=== PATIENT | female | born 1970 | race Caucasian/White ===

== ENCOUNTER 2024-04-13 09:54 | Outpatient (OUT) | payer BC, SELFPAY ==
--- NOTE | 2024-04-13 09:56 | US_ITS ---
The [address] [address] Patient Name: JUDAH BERTRAND MRN: [id number] date: 1970 Sex: F Assigned Patient Location: [facility] Current Patient Location: [facility] Accession/Order Number: [id number] Exam Date: 04/13/2024 09:56 Report Date: 04/13/2024 13:11 At the request of: SELMA GARCIA Procedure: US pelvis w/ transvaginal EXAMINATION: US pelvis w/ transvaginal HISTORY: POST MENOPAUSAL BLEEDING ; left pelvic pressure COMPARISON: No relevant comparison available. TECHNIQUE: Transabdominal and/or transvaginal sonographic examination was performed as indicated by examination type. FINDINGS: UTERUS: Contains 2 myometrial masses, 3.4 cm and 3.0 cm respectively suspected represent leiomyomas. Uterus size: 10.5 x 5.5 x 7.6 cm ENDOMETRIUM: Normal homogeneous appearance. Endometrial thickness: 15 mm RIGHT OVARY: Cannot be identified. LEFT OVARY: Ovary could not be identified, but within left adnexa adjacent the uterus is a 4.4 x 4.3 x 3.6 cm heterogeneous structure. CUL-DE-SAC: Unremarkable. No significant free fluid. BLADDER: Unremarkable. OTHER: None. US/US pelvis w/ transvaginal IMPRESSION: 1. Slightly prominent uterus containing 2 myometrial masses favoring leiomyomas. 2. Abnormally thickened endometrium without appreciable mass. Endometrial hyperplasia? 3. Within left adnexa adjacent the uterus is a 4.4 cm heterogeneous structure of uncertain etiology. No appreciable peristalsis as would be expected with bowel. This may represent an ovarian mass or pedunculated uterine leiomyoma. Consider CT abdomen and pelvis with IV and oral contrast for further evaluation. Electronically authenticated by: ROSALINO SALAZAR Date: 04/13/2024 13:11
== END 2024-04-13 09:55 | disposition home or self-care (01) ==
LOC: NOMS 09:54
PROVIDERS: Visit Provider Obstetrics & Gynecology
DX: N95.0 Postmenopausal bleeding (principal); D25.9 Leiomyoma of uterus, unspecified
CPT/HCPCS: 76830; 76856

== ENCOUNTER 2024-04-16 10:35 | Outpatient (OUT) | payer BC, SELFPAY ==
[2024-04-16 12:32] LABS: Lactate Dehydrogenase 161 U/L (81-234)
[2024-04-17 04:08] LABS: AFP, Serum, Tumor Marker 2.1 ng/mL (0.0-9.2); CEA 1.2 ng/mL (0.0-4.7); Cancer Antigen (CA) 125 13.6 U/mL (0.0-38.1); HCG Tumor Marker <1 mIU/mL (.)
== END 2024-04-16 10:36 | disposition home or self-care (01) ==
LOC: LAB 10:38
PROVIDERS: Visit Provider Obstetrics & Gynecology
DX: N83.299 Other ovarian cyst, unspecified side (principal)
CPT/HCPCS: 36415; 82105; 82378; 83615; 84702; 86304

== ENCOUNTER 2024-04-21 19:05 | Outpatient (REF) | payer BC, SELFPAY ==
--- OUTSIDE RECORDS SUMMARY | 2024-04-21 19:10 | XMS_ITS | CCD ---
Author Organization [facility] Care Team Providers Care Finisher Fine Diamond Dies Name Role Phone SELMA GARCIA Admitting Unavailable SELMA GARCIA Attending Unavailable SELMA GARCIA Consulting Unavailable AUGUSTIN Benedict-BAO Mathis Primary Care Provider Community, Outreach Attending Provider [phone] Community, Outreach Admitting Unavailable Community, Outreach Attending Unavailable Xochilt Benedict Primary Care Unavailable Charanjit Wong MD Primary Care Provider CHARANJIT WONG Attending Unavailable CHARANJIT WONG Referring Unavailable CHARANJIT WONG Primary Care Unavailable SELMA GARCIA Attending Unavailable SELMA GARCIA Attending Unavailable Medications Current Medications Medication Drug Class(es) Dates Sig (Normalized) Sig (Original) atorvastatin 10 mg oral tablet (5 sources) HMG-CoA Reductase Inhibitor Start: 12-13-2023 End: 01-16-2024 take 1 tablet by mouth in the morning atorvastatin (LIPITOR) 10 mg tablet Indications: Mixed hyperlipidemia Take 1 tablet (10 mg total) by mouth in the morning. 90 tablet 1 01/16/2024 Active Start: 12-09-2023 End: 12-11-2023 take 1 tablet by mouth in the morning atorvastatin (LIPITOR) 10 mg tablet Indications: Mixed hyperlipidemia Take 1 tablet (10 mg total) by mouth in the morning. 90 tablet 1 12/09/2023 12/11/2023 Discontinued (Reorder) benazepril hydrochloride 20 mg oral tablet (5 sources) Angiotensin Converting Enzyme Inhibitor Start: 05-23-2023 End: 01-16-2024 take 1 tablet by mouth once daily benazepriL (LOTENSIN) 20 mg tablet Indications: Essential hypertension Take 1 tablet (20 mg total) by mouth nightly. 90 tablet 1 01/16/2024 Active Start: 01-07-2020 take 1 tablet by jenna th once daily Benazepril Active 1 TAB PO Daily January 07, 2020 1:00am 24 hr buPROPion hydrochloride 300 mg extended release oral tablet (5 sources) Aminoketone Start: 05-23-2023 End: 01-16-2024 take 1 tablet by mouth every twenty-four hours in the morning buPROPion XL (WELLBUTRIN XL) 300 mg 24 hr tablet Indications: Depression, unspecified depression type Take 1 tablet (300 mg total) by mouth in the morning. 90 tablet 1 01/16/2024 Active Start: 01-07-2020 take 1 tablet by jenna th once daily Bupropion Hcl Active 1 TAB PO Daily January 07, 2020 1:00am escitalopram 20 mg oral tablet (5 sources) Serotonin Reuptake Inhibitor Start: 05-23-2023 End: 01-16-2024 take 1 tablet by mouth once daily escitalopram (LEXAPRO) 20 mg tablet Indications: Depression, unspecified depression type Take 1 tablet (20 mg total) by mouth nightly. 90 tablet 1 01/16/2024 Active Start: 01-07-2020 take 1 tablet by jenna th once daily Escitalopram Oxalate Active 1 TAB PO Daily January 07, 2020 1:00am furosemide 20 mg oral tablet (5 sources) Loop Diuretic Start: 05-23-2023 End: 01-16-2024 take 1 tablet by mouth once daily furosemide (LASIX) 20 mg tablet Indications: Essential hypertension Take 1 tablet (20 mg total) by mouth daily. 90 tablet 1 01/16/2024 Active Start: 01-07-2020 take 1 tablet by jenna th once daily Furosemide Active 1 TAB PO Daily January 07, 2020 1:00am metFORMIN hydrochloride 1000 mg oral tablet (5 sources) Biguanide Start: 05-23-2023 End: 01-16-2024 metFORMIN (GLUCOPHAGE) 1000 mg tablet Indications: Type 2 diabetes mellitus with hyperosmolarity without coma, without long-term current use of insulin ([facility]) , Type 2 diabetes mellitus without complication, without long-term current use of insulin ([facility]) TAKE 1 TABLET TWICE A DAY WITH MEALS 180 tablet 1 01/16/2024 Active Start: 01-07-2020 take 1 tablet by jenna th twice daily Metformin Active 1 TAB PO Twice daily January 07, 2020 1:00am Completed/Discontinued Medications Medication Drug Class(es) Dates Sig (Normalized) Sig (Original) folic acid 1 mg / polysaccharide iron complex 150 mg / vitamin b12 0.025 mg oral capsule (1 source) Vitamin B12 Start: 01-07-2020 End: 01-08-2020 take 1 tablet by mouth once daily Iron Ps [id number] Acid Discontinued 1 TAB PO Daily January 07, 2020 1:00am January 08, 2020 9:47am Problems Active Problems Problem Classification Problem Date Documented Date Episodic/Chronic Deficiency and other anemia (3 sources) Iron deficiency anemia due to blood loss; Translations: [Iron deficiency anemia secondary to blood loss (chronic)] Onset: 11-27-2019 04-07-2020 Chronic Diabetes mellitus with complications (4 sources) Type 2 diabetes mellitus; Translations: [Type 2 diabetes mellitus with hyperosmolarity without nonketotic hyperglycemic-hyperos molar coma ([facility])] Onset: 04-07-2020 04-07-2020 Chronic Diabetes mellitus without complication (1 source) Type 2 diabetes mellitus without complication; Translations: [Type 2 diabetes mellitus without complications] 01-16-2024 Chronic Disorders of lipid metabolism (2 sources) Mixed hyperlipidemia; Translations: [Mixed hyperlipidemia] 12-11-2023 Chronic Essential hypertension (1 source) Essential hypertension; Translations: [Essential (primary) hypertension] 01-16-2024 Chronic Immunizations and screening for infectious disease (1 source) Encounter for screening for human papillomavirus (HPV); Translations: [ENC SCREENING HUMAN PAPILLOMAVIRUS] Onset: 04-07-2020 Episodic Mood disorders (1 source) Depressive disorder; Translations: [Depression, unspecified depression type] 01-16-2024 Chronic Osteoarthritis (6 sources) Primary coxarthrosis, bilateral; Translations: [Bilateral primary osteoarthritis of hip] Onset: 03-23-2020 03-23-2020 Chronic Other connective tissue disease (3 sources) History of repair of hip joint; Translations: [Presence of left artificial hip joint] Onset: 11-08-2020 11-08-2020 Chronic Other connective tissue disease (3 sources) Hip joint prosthesis present; Translations: [Presence of left artificial hip joint] Onset: 10-24-2020 11-30-2022 Chronic Other screening for suspected conditions (not mental disorders or infectious disease) (4 sources) Encounter for screening for malignant neoplasm of cervix; Translations: [ENC SCREENING MALIG NEOPLASM CERV] Onset: 04-06-2020 Episodic Residual codes; unclassified (1 source) Edema, generalized; Translations: [Generalized edema] 01-15-2024 Episodic Past or Other Problems Problem Classification Problem Date Documented Da te Episodic/Chronic Mood disorders (3 sources) Mood disorders Onset: 11-27-2022 11-27-2022 Results Test Name Value Interpretation Reference Range Facility Alanine aminotransferase [En zymatic activity/volume] in Serum or PlasmaOrdered By: OUTREACH COMMUNITY on 03-02-2023 ALT [Catalytic activity/Vol] 28 U/L 7-52 [facility] Albumin [Mass/volume] in Ser um or Plasma by Bromocresol green (BCG) dye binding methoOrdered By: OUTREACH COMMUNITY on 03-02-2023 Albumin BCG dye [Mass/Vol] 4.5 g/dL 3.5-5.7 [facility] Alkaline phosphatase [Enzyma tic activity/volume] in Serum or PlasmaOrdered By: OUTREACH COMMUNITY on 03-02-2023 ALP [Catalytic activity/Vol] 76 U/L 34-104 [facility] Aspartate aminotransferase [ Enzymatic activity/volume] in Serum or PlasmaOrdered By: OUTREACH COMMUNITY on 03-02-2023 AST [Catalytic activity/Vol] 17 U/L 13-39 [facility] Bilirubin.total [Mass/volume ] in Serum or PlasmaOrdered By: OUTREACH COMMUNITY on 03-02-2023 Bilirubin [Mass/Vol] 0.8 mg/dL 0.3-1.0 [facility] CBC Without Differentialon 0 03-02-2023 Erythrocyte distribution width (RBC) [Ratio] 13.0 % Normal 11.9-15.3 [facility] Comment on above: Performed By: #### C BCNOOUTREACH, OUTREACH GLYCO, OUTREACH CMP, OUTREACH LIPID, OUTREACH TSH, OUTREACH VITD #### [facility] [address] Hematocrit (Bld) [Volume fraction] 42.7 % Normal 34.0-46.4 [facility] Comment on above: Performed By: #### C BCNOOUTREACH, OUTREACH GLYCO, OUTREACH CMP, OUTREACH LIPID, OUTREACH TSH, OUTREACH VITD #### [facility] [address] [place] [address] [place] Hemoglobin (Bld) [Mass/Vol] 14.7 g/dL Normal 11.8-15.4 [facility] Comment on above: Performed By: #### C BCNOOUTREACH, OUTREACH GLYCO, OUTREACH CMP, OUTREACH LIPID, OUTREACH TSH, OUTREACH VITD #### [facility] [address] MCH (RBC) [Entitic mass] 28.9 pg Normal 24.7-34.3 [facility] Comment on above: Performed By: #### C BCNOOUTREACH, OUTREACH GLYCO, OUTREACH CMP, OUTREACH LIPID, OUTREACH TSH, OUTREACH VITD #### [facility] [address] [place] [address] MCV (RBC) [Entitic vol] 84.2 fL Normal 80-100 [facility] Comment on above: Performed By: #### C BCNOOUTREACH, OUTREACH GLYCO, OUTREACH CMP, OUTREACH LIPID, OUTREACH TSH, OUTREACH VITD #### [facility] [address] [place] [address] Mean Corpuscular HGB Conc 34.3 g/dL Normal 32.0-35.0 [facility] Comment on above: Performed By: #### C BCNOOUTREACH, OUTREACH GLYCO, OUTREACH CMP, OUTREACH LIPID, OUTREACH TSH, OUTREACH VITD #### [facility] [address] [place] [address] Platelet mean volume (Bld) [Entitic vol] 7.1 fL Normal 6.3-10.7 [facility] Comment on above: Result Comment: PERF ORMED BY: [place] [address] PATHOLOGIST DIRECTOR METABOLISM MARY ALICE MUNOZ M.D. Performed By: #### C BCNOOUTREACH, OUTREACH GLYCO, OUTREACH CMP, OUTREACH LIPID, OUTREACH TSH, OUTREACH VITD #### [facility] [address] [place] [address] [place] Platelets (Bld) [#/Vol] 375 10*3/uL Normal 150-450 [facility] Comment on above: Performed By: #### C BCNOOUTREACH, OUTREACH GLYCO, OUTREACH CMP, OUTREACH LIPID, OUTREACH TSH, OUTREACH VITD #### [facility] [address] [place] [address] RBC (Bld) [#/Vol] 5.07 10*6/uL High 3.60-5.00 [facility] Comment on above: Performed By: #### C BCNOOUTREACH, OUTREACH GLYCO, OUTREACH CMP, OUTREACH LIPID, OUTREACH TSH, OUTREACH VITD #### [facility] [address] [place] [address] WBC (Bld) [#/Vol] 5.8 10*3/uL Normal 3.8-11.6 [facility] Comment on above: Performed By: #### C BCNOOUTREACH, OUTREACH GLYCO, OUTREACH CMP, OUTREACH LIPID, OUTREACH TSH, OUTREACH VITD #### [facility] [address] [place] [address] CMP Outreachon 03-02-2023 Albumin [Mass/Vol] 4.5 g/dL Normal 3.5-5.7 [facility] Comment on above: Performed By: #### C BCNOOUTREACH, OUTREACH GLYCO, OUTREACH CMP, OUTREACH LIPID, OUTREACH TSH, OUTREACH VITD #### [facility] [address] [place] [address] ALP [Catalytic activity/Vol] 76 U/L Normal 34-104 [facility] Comment on above: Performed By: #### C BCNOOUTREACH, OUTREACH GLYCO, OUTREACH CMP, OUTREACH LIPID, OUTREACH TSH, OUTREACH VITD #### [facility] [address] [place] [address] ALT [Catalytic activity/Vol] 28 U/L Normal 7-52 [facility] Comment on above: Performed By: #### C BCNOOUTREACH, OUTREACH GLYCO, OUTREACH CMP, OUTREACH LIPID, OUTREACH TSH, OUTREACH VITD #### [facility] [address] [place] [address] Anion gap [Moles/Vol] 12.5 mmol/L Normal 6.0-15.0 [facility] Comment on above: Performed By: #### C BCNOOUTREACH, OUTREACH GLYCO, OUTREACH CMP, OUTREACH LIPID, OUTREACH TSH, OUTREACH VITD #### [facility] [address] [place] [address] [place] AST [Catalytic activity/Vol] 17 U/L Normal 13-39 [facility] Comment on above: Performed By: #### C BCNOOUTREACH, OUTREACH GLYCO, OUTREACH CMP, OUTREACH LIPID, OUTREACH TSH, OUTREACH VITD #### [facility] [address] [place] [address] [place] Bilirubin [Mass/Vol] 0.8 mg/dL Normal 0.3-1.0 [facility] Comment on above: Performed By: #### C BCNOOUTREACH, OUTREACH GLYCO, OUTREACH CMP, OUTREACH LIPID, OUTREACH TSH, OUTREACH VITD #### [facility] [address] [place] [address] [place] Calcium [Mass/Vol] 9.1 mg/dL Normal 8.6-10.3 [facility] Comment on above: Performed By: #### C BCNOOUTREACH, OUTREACH GLYCO, OUTREACH CMP, OUTREACH LIPID, OUTREACH TSH, OUTREACH VITD #### [facility] [address] [place] [address] [place] Chloride [Moles/Vol] 102 mmol/L Normal 98-107 [facility] Comment on above: Performed By: #### C BCNOOUTREACH, OUTREACH GLYCO, OUTREACH CMP, OUTREACH LIPID, OUTREACH TSH, OUTREACH VITD #### [facility] [address] [place] [address] [place] CO2 [Moles/Vol] 25.8 mmol/L Normal 21.0-31.0 [facility] Comment on above: Performed By: #### C BCNOOUTREACH, OUTREACH GLYCO, OUTREACH CMP, OUTREACH LIPID, OUTREACH TSH, OUTREACH VITD #### [facility] [address] [place] [address] [place] Creatinine [Mass/Vol] 0.63 mg/dL Normal 0.60-1.20 [facility] Comment on above: Performed By: #### C BCNOOUTREACH, OUTREACH GLYCO, OUTREACH CMP, OUTREACH LIPID, OUTREACH TSH, OUTREACH VITD #### [facility] [address] [place] [address] [place] GFR/1.73 sq M.predicted MDRD (S/P/Bld) [Vol rate/Area] mL/min/{1.73_m2} Normal [facility] Comment on above: Performed By: #### C BCNOOUTREACH, OUTREACH GLYCO, OUTREACH CMP, OUTREACH LIPID, OUTREACH TSH, OUTREACH VITD #### [facility] [address] [place] [address] [place] Glucose [Mass/Vol] 157 mg/dL High 70-100 [facility] Comment on above: Result Comment: [facility] Glucose Reference Range is dependent on time and content of last meal. Glucose of more than 200 mg/dL in a nonstressed, ambulatory subject supports the diagnosis of Diabetes Mellitus. ADA recommended reference range Performed By: #### C BCNOOUTREACH, OUTREACH GLYCO, OUTREACH CMP, OUTREACH LIPID, OUTREACH TSH, OUTREACH VITD #### [facility] [address] [place] [address] [place] Potassium [Moles/Vol] 4.3 mmol/L Normal 3.5-5.1 [facility] Comment on above: Performed By: #### C BCNOOUTREACH, OUTREACH GLYCO, OUTREACH CMP, OUTREACH LIPID, OUTREACH TSH, OUTREACH VITD #### [facility] [address] [place] [address] [place] Protein [Mass/Vol] 6.8 g/dL Normal 6.4-8.9 [facility] Comment on above: Performed By: #### C BCNOOUTREACH, OUTREACH GLYCO, OUTREACH CMP, OUTREACH LIPID, OUTREACH TSH, OUTREACH VITD #### [facility] [address] [place] [id number] [place] Sodium [Moles/Vol] 136 mmol/L Normal 136-145 [facility] Comment on above: Performed By: #### C BCNOOUTREACH, OUTREACH GLYCO, OUTREACH CMP, OUTREACH LIPID, OUTREACH TSH, OUTREACH VITD #### [facility] [address] [place] [address] [place] Urea nitrogen [Mass/Vol] 21 mg/dL Normal 7-25 [facility] Comment on above: Performed By: #### C BCNOOUTREACH, OUTREACH GLYCO, OUTREACH CMP, OUTREACH LIPID, OUTREACH TSH, OUTREACH VITD #### [facility] [address] Calcium [Mass/volume] in Ser um or PlasmaOrdered By: OUTREACH COMMUNITY on 03-02-2023 Calcium [Mass/Vol] 9.1 mg/dL 8.6-10.3 [facility] Carbon dioxide, total [Moles /volume] in Serum or PlasmaOrdered By: OUTREACH COMMUNITY on 03-02-2023 CO2 [Moles/Vol] 25.8 mmol/L 21.0-31.0 [facility] Chloride [Moles/volume] in S aleena or PlasmaOrdered By: OUTREACH COMMUNITY on 03-02-2023 Chloride [Moles/Vol] 102 mmol/L 98-107 [facility] Cholesterol [Mass/volume] in Serum or PlasmaOrdered By: OUTREACH COMMUNITY on 03-02-2023 Cholesterol [Mass/Vol] 162 mg/dL 140-200 [facility] Comment on above: Chol less than 200 m g/dl low riskChol 201-239 mg/dl borderline riskChol 240 mg/dl and greater high risk Cholesterol in LDL Calc [Mas s/Vol]Ordered By: OUTREACH COMMUNITY on 03-02-2023 Cholesterol in LDL [Mass/Vol] 100 mg/dL 0-100 [facility] Comment on above: LDL ATP III CLASSIFI CATIONLDL less than 100 mg/dL OptimalLDL 100-129 mg/dL Near or above optimalLDL 130-159 mg/dL Borderline highLDL 160-189 mg/dL HighLDL greater than 189 mg/dL Very high Cholesterol in VLDL Calc [Ma ss/Vol]Ordered By: OUTREACH COMMUNITY on 03-02-2023 Cholesterol in VLDL [Mass/Vol] 23 mg/dL [facility] Creatinine [Mass/volume] in Serum or PlasmaOrdered By: OUTREACH COMMUNITY on 03-02-2023 Creatinine [Mass/Vol] 0.63 mg/dL 0.60-1.20 [facility] Erythrocyte distribution wid th Auto (RBC) [Ratio]Ordered By: OUTREACH COMMUNITY on 03-02-2023 Erythrocyte distribution width (RBC) [Ratio] 13.0 % 11.9-15.3 [facility] Glucose [Mass/volume] in Ser um or PlasmaOrdered By: [facility] on 03-02-2023 Glucose [Mass/Vol] 157 mg/dL 70-100 [facility] Comment on above: ADA recommended refe rence rangeRandom Glucose Reference Range is dependent on time and content of last meal. Glucose of more than 200 mg/dL in a nonstressed, ambulatory subject supports the diagnosis of Diabetes Mellitus. Glucose mean value [Mass/vol ume] in Blood Estimated from glycated hemoglobinOrdered By: [facility] on 03-02-2023 Average glucose Estimated from glycated hemoglobin (Bld) [Mass/Vol] 160 mg/dL [facility] Hematocrit Auto (Bld) [Volum e fraction]Ordered By: [facility] on 03-02-2023 Hematocrit (Bld) [Volume fraction] 42.7 % 34.0-46.4 [facility] Hemoglobin [Mass/volume] in BloodOrdered By: [facility] on 03-02-2023 Hemoglobin (Bld) [Mass/Vol] 14.7 g/dL 11.8-15.4 [facility] Laboratory - Hematology and Cell countsOrdered By: [facility] on 03-02-2023 HbA1c (Bld) [Mass fraction] 7.2 % 4.3-5.6 [facility] Comment on above: Increased risk for d iabetes: 5.7 - 6.4diabetes: >6.4glycemic control for adults with diabetes: <7.0 Leukocytes [#/volume] correc chuy for nucleated erythrocytes in Blood by Automated counOrdered By: [facility] on 03-02-2023 WBC corrected for nucl RBC Auto (Bld) [#/Vol] 5.8 10*3/uL 3.8-11.6 [facility] Lipid Profile [facility] Cholesterol [Mass/Vol] 162 mg/dL Normal 140-200 [facility] Comment on above: Result Comment: Chol less than 200 mg/dl low risk Chol 201-239 mg/dl borderline risk Chol 240 mg/dl and greater high risk Performed By: #### C BCNOOUTREACH, OUTREACH GLYCO, OUTREACH CMP, OUTREACH LIPID, OUTREACH TSH, OUTREACH VITD #### [facility] [address] [place] [address] [place] Cholesterol in HDL [Mass/Vol] 39 mg/dL Normal 35-85 [facility] Comment on above: Result Comment: HDL CHOL ATP-III CLASSIFICATION Cardiovascular Risk HDL > or equal to 60 mg/dL LOW HDL < 40 mg/dL HIGH Performed By: #### C BCNOOUTREACH, OUTREACH GLYCO, OUTREACH CMP, OUTREACH LIPID, OUTREACH TSH, OUTREACH VITD #### [facility] [address] Cholesterol.total/Choles terol in HDL [Mass ratio] 4.2 {ratio} Normal <5.0 [facility] Comment on above: Performed By: #### C BCNOOUTREACH, OUTREACH GLYCO, OUTREACH CMP, OUTREACH LIPID, OUTREACH TSH, OUTREACH VITD #### [facility] [address] LDL Cholesterol,Calculated 100 mg/dL Normal 0-100 [facility] Comment on above: Result Comment: LDL ATP III CLASSIFICATION LDL less than 100 mg/dL Optimal LDL 100-129 mg/dL Near or above optimal LDL 130-159 mg/dL Borderline high LDL 160-189 mg/dL High LDL greater than 189 mg/dL Very high Performed By: #### C BCNOOUTREACH, OUTREACH GLYCO, OUTREACH CMP, OUTREACH LIPID, OUTREACH TSH, OUTREACH VITD #### [facility] [address] Triglyceride w/Reflex 116 mg/dL Normal 0-149 [facility] Comment on above: Result Comment: TRIG ATP III CLASSIFICATION TRIG less than 150 mg/dL Normal TRIG 150-199 mg/dL Borderline high TRIG 200-500 mg/dL High TRIG greater than 500 mg/dL Very high Standard traceable to the Center for Disease Conrtrol and Prevention (CDC) test method. Performed By: #### C BCNOOUTREACH, OUTREACH GLYCO, OUTREACH CMP, OUTREACH LIPID, OUTREACH TSH, OUTREACH VITD #### [facility] [address] VLDL CHOLESTEROL 23 mg/dL Normal [facility] Comment on above: Performed By: #### C BCNOOUTREACH, OUTREACH GLYCO, OUTREACH CMP, OUTREACH LIPID, OUTREACH TSH, OUTREACH VITD #### [facility] [address] MCH Auto (RBC) [Entitic mass ]Ordered By: OUTREACH COMMUNITY on 03-02-2023 MCH (RBC) [Entitic mass] 28.9 pg 24.7-34.3 [facility] MCHC Auto (RBC) [Mass/Vol]Or dered By: OUTREACH COMMUNITY on 03-02-2023 MCHC (RBC) [Mass/Vol] 34.3 g/dL 32.0-35.0 [facility] MCV Auto (RBC) [Entitic vol] Ordered By: OUTREACH [facility] on 03-02-2023 MCV (RBC) [Entitic vol] 84.2 fL 80-100 [facility] No Panel InformationOrdered By: [facility] on 03-02-2023 Estimated GFR (CKD-EPI) > 60.0 mL/Min [facility] Creatinine Clearance (Chem N/A [facility] Outreach [place] 03-02-2023 Glucose [Mass/Vol] 160 mg/dL Normal [facility] Comment on above: Result Comment: PERF ORMED BY: [place] [address] PATHOLOGIST DIRECTOR METABOLISM MARY ALICE MUNOZ M.D. Performed By: #### C BCNOOUTREACH, OUTREACH GLYCO, OUTREACH CMP, OUTREACH LIPID, OUTREACH TSH, OUTREACH VITD #### [facility] [address] [place] [address] HbA1c (Bld) [Mass fraction] 7.2 % High 4.3-5.6 [facility] Comment on above: Result Comment: Incr eased risk for diabetes: 5.7 - 6.4 diabetes: >6.4 glycemic control for adults with diabetes: <7.0 Performed By: #### C BCNOOUTREACH, OUTREACH GLYCO, OUTREACH CMP, OUTREACH LIPID, OUTREACH TSH, OUTREACH VITD #### [facility] [address] Outreach VitD 25on 3 Outreach VitD 25 31.8 ng/mL Normal 30-100 [facility] Comment on above: Result Comment: JAZMÍN MIN D STATUS 25(OH)VITAMIN D RANGE (ng/mL) Deficient <20 Insufficient 20 to <30 Sufficient 30 to 100 Reference: Henna MF,Brina SPRAGUE, Eric FERRARO, et al. Evaluation,treatment, and prevention of vitamin D deficiency; an Endocrine Society clinical practice guideline. JCEM. 2010; 96(7):1911-30. PERFORMED BY: [place] [address] PATHOLOGIST DIRECTOR METABOLISM MARY ALICE MUNOZ M.D. Performed By: #### C BCNOOUTREACH, OUTREACH GLYCO, OUTREACH CMP, OUTREACH LIPID, OUTREACH TSH, OUTREACH VITD #### [address] Platelet mean volume Auto (B ld) [Entitic vol]Ordered By: OUTREACH [facility] on 03-02-2023 Platelet mean volume (Bld) [Entitic vol] 7.1 fL 6.3-10.7 [facility] Platelets Auto (Bld) [#/Vol] Ordered By: OUTREACH [facility] on 03-02-2023 Platelets (Bld) [#/Vol] 375 10*3/uL 150-450 [facility] Potassium [Moles/volume] in Serum or PlasmaOrdered By: [facility] on 03-02-2023 Potassium [Moles/Vol] 4.3 mmol/L 3.5-5.1 [facility] Protein [Mass/volume] in Ser um or PlasmaOrdered By: OUTREACH [facility] on 03-02-2023 Protein [Mass/Vol] 6.8 g/dL 6.4-8.9 [facility] RBC Auto (Bld) [#/Vol]Ordere d By: OUTREACH COMMUNITY on 03-02-2023 RBC (Bld) [#/Vol] 5.07 10*6/uL 3.60-5.00 [facility] Serum or plasma anion gap de terminationOrdered By: OUTREACH COMMUNITY on 03-02-2023 Anion gap [Moles/Vol] 12.5 mmol/L 6.0-15.0 [facility] Serum or plasma high density lipoprotein (HDL) cholesterol measurementOrdered By: OUTREACH COMMUNITY on 03-02-2023 Cholesterol in HDL [Mass/Vol] 39 mg/dL 35-85 [facility] Comment on above: HDL CHOL ATP-III CLA SSIFICATION Cardiovascular RiskHDL > or equal to 60 mg/dL LOWHDL < 40 mg/dL HIGH Serum or plasma total choles terol/high density lipoprotein (HDL) cholesterol mass ratOrdered By: [facility] on 03-02-2023 Cholesterol.total/Choles terol in HDL [Mass ratio] 4.2 {ratio} <5.0 [facility] Sodium [Moles/volume] in Ser um or PlasmaOrdered By: [facility] on 03-02-2023 Sodium [Moles/Vol] 136 mmol/L 136-145 [facility] Thyroid Stimulating Hormoneo n 03-02-2023 TSH Qn 1.52 m[IU]/L Normal 0.45-5.33 [facility] Comment on above: Performed By: #### C BCNOOUTREACH, OUTREACH GLYCO, OUTREACH CMP, OUTREACH LIPID, OUTREACH TSH, OUTREACH VITD #### [facility] [address] Thyrotropin [Units/volume] i n Serum or PlasmaOrdered By: [facility] on 03-02-2023 TSH Qn 1.52 m[IU]/L 0.45-5.33 [facility] Triglyceride [Mass/volume] i n Serum or PlasmaOrdered By: [facility] on 03-02-2023 Triglyceride [Mass/Vol] 116 mg/dL 0-[address] [facility] Comment on above: TRIG ATP III CLASSIF ICATIONTRIG less than 150 mg/dL NormalTRIG 150-199 mg/dL Borderline highTRIG 200-500 mg/dL High TRIG greater than 500 mg/dL Very highStandard traceable to the Center for Disease Conrtrol and Prevention (CDC) test method. Urea nitrogen [Mass/volume] in Serum or PlasmaOrdered By: [facility] on 03-02-2023 Urea nitrogen [Mass/Vol] 21 mg/dL 7-25 [facility] Vitamin D+Metabolites [Mass/ volume] in Serum or PlasmaOrdered By: OUTREACH [facility] on 03-02-2023 Vitamin D+Metabolites [Mass/Vol] 31.8 ng/mL 30-100 [facility] Comment on above: VITAMIN D STATUS 25( OH)VITAMIN D RANGE (ng/mL) Deficient <20 Insufficient 20 to <30Sufficient 30 to 100Reference: Henna MF,Brina SPRAGUE, Eric FERRARO, et al. Evaluation,treatment, and prevention of vitamin D deficiency; an Endocrine Society clinical practice guideline. JCEM. 2010; 96(7):1911-30. PAP ACOG PANEL 2: 30 to 65on 04-09-2020 Age Gdln ACOG Testing -65 Normal [facility] Comment on above: Performed By: #### [id number] #### [facility] [address] [place] [address] Malena Mariano DIAGNOSIS: Comment Normal [facility] Comment on above: Result Comment: NEGA TIVE FOR INTRAEPITHELIAL LESION OR MALIGNANCY. Performed at: WB Performed By: #### [id number] #### [facility] [address] [address] Malena Mariano HPV Aptima Negative Normal Negative [facility] Comment on above: Result Comment: This test was developed and its performance characteristics determined by [employer]. It has not been cleared or approved by the Food and Drug Administration. This nucleic acid amplification test detects fourteen high-risk HPV types (16,18,31,33,35,39,45,51,52,56,58,59,66,68) without differentiation. Performed at: =G Performed By: #### [id number] #### [facility] [address] [address] Malena Mariano Methodology: Comment Normal [facility] Comment on above: Result Comment: This liquid based SurePath(R) pap test was screened with the assistance of an image guided system. Performed at: WB Performed By: #### [id number] #### [facility] [address] [place] [address] Malena Mariano Note: Comment Normal [facility] Comment on above: Result Comment: The Pap smear is a screening test designed to aid in the detection of premalignant and malignant conditions of the uterine cervix. It is not a diagnostic procedure and should not be used as the sole means of detecting cervical cancer. Both false-positive and false-negative reports do occur. . Performed at: WB Performed By: #### [id number] #### [facility] [address] [place] [address] Malena Montserrat Performed by: Comment Normal [facility] Comment on above: Result Comment: Arianne Figueredo, Wrist Closer (ASCP) Performed at: WB Performed By: #### [id number] #### [facility] [address] [address] Malena Holleyen Specimen adequacy: Comment Normal [facility] Comment on above: Result Comment: Sati sfactory for evaluation. No endocervical cells are present. This is consistent with a history of hysterectomy. Performed at: WB Performed By: #### [id number] #### [facility] [address] [place] [address] Malena Mariano . . Normal [facility] Comment on above: Result Comment: Perf ormed at: WB Performed By: #### [id number] #### [facility] [address] [place] [address] Malena Mariano CBCon 12-04-2019 Absolute nRBC <0.01 Normal <0.01 [facility] Erythrocyte distribution width (RBC) [Ratio] 27.7 % High 11.5-15.0 [facility] Hematocrit (Bld) [Volume fraction] 33.6 % Low 36.0-46.0 [facility] Hemoglobin (Bld) [Mass/Vol] 9.4 g/dL Low 11.5-15.5 [facility] MCH (RBC) [Entitic mass] 20.0 pG Low 26.0-34.0 [facility] MCHC (RBC) [Mass/Vol] 28.0 g/dL Low 30.5-36.0 [facility] MCV (RBC) [Entitic vol] 71.5 fL Low 80.0-100.0 [facility] Platelet mean volume (Bld) [Entitic vol] 8.8 fL Low 9.0-12.7 [facility] Platelets (Bld) [#/Vol] 477 10*3/uL High 150-400 [facility] RBC (Bld) [#/Vol] 4.70 10*6/uL Normal 3.90-5.20 [facility] WBC (Bld) [#/Vol] 5.46 10*3/uL Normal 3.70-11.00 [facility] CNOVSPon 11-27-2019 CNOVSP Visit (SP) Office (HEMASA) CORINE BUCKLEY ([id number]) 1970 F Date Time Provider Department 11/27/19 1:00 PM KALI KAT) HEMASA During your visit today, we recorded the following information about you: Temperature Pulse Respiration Blood pressure 97.8 degrees 93/minute 18/minute 149/72 Weight Height Last Period 75.4 kg 1.66 m 11/24/19 Kali Kat MD 11/27/2019 2:27 PM Signed PATIENT NAME: Corine Buckley [facility] NO.: [id number] ATTENDING PHYSICIAN: Kali Kat MD DATE OF SERVICE: November 27, 2019 This document has been created with the use of voice recognition technology. It may contain inaccuracies, misspellings, inaccurate syntax or inappropriate word context that escaped review. Dear Dr. TONNY LEI[address] [phone] thank you for referring Mrs. Corine Buckley for an opinion regarding management of anemia. CHIEF COMPLAINT: I am anemic HPI: Corine Buckley is a 49 year old year old female with past medical history significant for diabetes on metformin, depression as well as hypertension who is planning to undergo a right hip replacement. Patient had preoperative labs performed on November 03, 2019 which demonstrated a white count of 5, hemoglobin 7.9, MCV 59 and a platelet count of 429 with a normal differential. Patient had significant anisopoikilocytosis as well as ovalocytes. Her chemistry panel was within normal limits. Patient states that she has not had blood work for a number of years but has had issues with anemia in the past. She denies PICA. She continues to have her menstrual cycles but she states that they're not very heavy. She denies any melena or hematochezia. She does take NSAIDs on a fairly regular basis. She denies any hematuria. She does complain of some fatigue but she states that her mobility is somewhat limited due to her hip and she does not place herself under stress. Current Outpatient Medications Medication Sig - Iron Polysacch [id number] (POLY-IRON 150 FORTE) 150-25-1 mg-mcg-mg cap TAKE 1 CAPSULE BY MOUTH TWICE DAILY FOR 30 DAYS - metFORMIN ER (GLUMETZA) 1,000 mg 24 hr tablet Take 1,000 mg by mouth daily with breakfast. - furosemide (LASIX) 20 mg tablet Take 20 mg by mouth twice daily. - escitalopram oxalate (LEXAPRO) 20 mg tablet Take 20 mg by mouth once daily. - Benazepril-Hydrochloro thiazide 20-25 mg per tablet Take 1 tablet by mouth once daily. - buPROPion XL (WELLBUTRIN XL) 300 mg 24 hr tablet Take 300 mg by mouth once daily. - orphenadrine citrate (NORFLEX ORAL) Take by mouth as needed. No current facility-administered medications for this visit. ALLERGIES No Known Allergies PAST MEDICAL HISTORY Diagnosis Date - Diabetes (HCC) - Hypertension - Major depression, chronic - OCD (obsessive compulsive disorder) PAST SURGICAL HISTORY Procedure Laterality Date - TONSILLECTOMY HX 1976 - TUBAL LIGATION 1999 FAMILY HISTORY Problem Relation Age of Onset - Diabetes Mother - Hypertension Mother - Diabetes Father - Hypertension Father - Stroke Father Social History Tobacco Use - Smoking status: Current Every Day Smoker Types: Cigarettes - Smokeless tobacco: Never Used Substance Use Topics - Alcohol use: Not Currently Comment: social - Drug use: Never REVIEW OF SYSTEMS GENERAL: No weight loss, malaise or fevers. No night sweats. HEENT: Negative for headaches, No changes in hearing or vision, no nose bleeds or other nasal problems. RESPIRATORY: Negative for cough, wheezing and shortness of breath CARDIOVASCULAR: Negative for chest pain, leg swelling and palpitations GI: Negative for abdominal discomfort, blood in stools or black stools and change in bowel habits : Negative for dysuria, frequency and incontinence MUSCULOSKELETAL: Negative for joint pain or swelling, back pain, and muscle pain. SKIN: Negative for lesions, rash, and itching. HEMATOLOGY/LYMPHOLOGY Negative for prolonged bleeding, bruising easily, and swollen nodes. NEURO: Negative for numbness or tingling of hands/feet. No weakness. PHYSICAL EXAMINATION: BP 149/72 Pulse 93 Temp 36.6 ?C (97.8 ?F) (Oral) Resp 18 Ht 166 cm (5' 5.35 ) Wt 75.4 kg (166 lb 3.2 oz) LMP 11/24/2019 SpO2 99% BMI 27.36 kg/m? Wt 75.4 kg (166 lb 3.2 oz) BMI 27.36 kg/m2 Last 3 Encounter Wt Readings: Date: Wt: 11/27/2019 75.4 kg (166 lb 3.2 oz) General appearance:ECOG PERFORMANCE STATUS: 1- Restricted in physically strenuous activity. Carries out light duty. Patient in NAD. Skin: Skin color, texture, turgor normal. No rashes or lesions. Eyes: Anicteric sclera. Pupils are equally round and reactive to light. Extraocular movements are intact. Breast: No palpable breast masses. No nipple change or discharge. Lymph Nodes: No cervical, supraclavicular, axillary or inguinal adenopathy. Oropharynx: Lips, mucosa, and tongue normal. Back: No pain to percussion. Negative SLR test Lungs clear to auscultation, No wheezing or rhonchi Heart: RRR without murmur, gallop, or rubs. Abdomen soft, non-tender. No masses, organomegaly Extremities: No deformities. No edema Neuro: Gait and speech normal. Reflexes normal and symmetric. Muscular strength intact. Sensation grossly intact. Rectal: Deferred : Deferred LABS: No results found for: GLUC, K, NA, CHLOR, CO2, CREAT, BUN, ANION, CA, TPROT, ALB, TBILI, ALKPHOS, AST, ALT No results found for: WBC, RBC, HB, HCT, MCV, MCH, MCHC, RDWCV, PLT, MPV, MPV, NEUT, ABSNEUT, LYMPHP, ABSLYMPH, MONOP, ABSMONO, EOSINP, ABSEOSIN, BASOP, ABSBASO PATH: IMAGING: ASSESSMENT AND PLAN: Corine Buckley is a 49 year old year old female past medical history significant for diabetes, depression and hypertension planning to undergo a hip replacement. Patient was noted to have significant microcytic anemia. Patient has had chronic menstrual cycles and previous history of anemia. She also uses NSAIDs on a regular basis. Her surgery was originally scheduled for next Saturday. I suggest that her surgery be delayed for a couple of weeks. We will start her on Injectafer this week and the following week and I'm assuming she'll have a good response and can then proceed safely with her surgery. I do not see an indication for blood transfusion as a surgery is not urgent. I also stated that she should get an upper endoscopy as well as a lower endoscopy and will make a GI referral. Will see her in clinic after surgery to assess her response and she will get blood draws prior to surgery as well. Dear TANNER Melgar JR [address] [place] [phone] thank you for allowing me to participate in Mrs Corine reese, if there are any questions or concerns please do not hesitate to contact me at the number below. Kali Kat M.D. Hematology/Medical Oncology [facility] [phone] CC: Xochilt Benedict APRN-[facility] MD Kali Marcelo MD 11/27/2019 3:51 PM Signed Addended by: KALI KAT MD on: 11/27/2019 03:51 PM Modules accepted: Orders Referring Provider: TANNER ALCANTAR JR [[id number]] Allergies As of Date: 11/27/2019 (No Known Allergies) Date Reviewed: 11/27/2019 Reviewed by: Kali Spicer) Shey - Fully Assessed Reason for Visit: Anemia [6] Cmt: new patient consult Primary Visit Diagnosis:Iron deficiency anemia due to chronic blood loss [D50.0] Order(s):IRON + TIBC [SQIRON] Order #: [id number] FUTURE FERRITIN BLD [SQFERR] Order #: [id number] FUTURE RETIC COUNT [SQRETIC] Order #: [id number] FUTURE CBC + DIFF (FOR REMOTE [facility] USE) [SQRCBCDF] Order #: [id number] FUTURE COMP METABOLIC PANEL [SQCMP] Order #: [id number] FUTURE IRON + TIBC [SQIRON] Order #: [id number] FUTURE FERRITIN BLD [SQFERR] Order #: [id number] FUTURE CONSULT TO GASTROENTEROLOGY [7810] Order #: [id number]: 1 FUTURE CBC [SQCBC] Order #: [id number] FUTURE Follow-up and Disposition History Recorded Prescriptions as of 11/27/2019 Sig: POLY-IRON 150 FORTE 150 MG-25* TAKE 1 CAPSULE BY MOUTH TWICE* METFORMIN ER 1,000 MG 24 HR T* Take 1,000 mg by mouth daily * FUROSEMIDE 20 MG TABLET Take 20 mg by mouth twice mlaika* ESCITALOPRAM 20 MG TABLET Take 20 mg by mouth once era* BENAZEPRIL 20 MG-HYDROCHLOROT* Take 1 tablet by mouth once d* BUPROPION XL 300 MG 24 HR TAB Take 300 mg by mouth once malika* NORFLEX ORAL Take by mouth as needed. Problem List As Of Date 11/27/2019 Noted Resolved Iron deficiency anemia due to chronic blood los*11/27/2019 Encounter Status:Closed by KALI KAT MD on 11/27/19 Normal [facility] Ferritinon 11-27-2019 Ferritin [Mass/Vol] 8.7 ng/mL Low 14.7-205.1 [facility] Comment on above: Performed By: #### F ERR #### [address] [address] Iron and TIBCon 11-27-2019 Iron [Mass/Vol] 533 ug/dL High 41-186 [facility] Comment on above: Performed By: #### I JAMES #### [facility] [address] [place], [place] [address] TIBC 774 ug/dL High 232-386 [facility] Comment on above: Performed By: #### I JAMES #### [facility] [address] [place], [place] [address] Transferrin Saturatn 69 % High 15-57 [facility] Comment on above: Performed By: #### I JAMES #### [facility] [address] [place], [place] [address] PROGRESSon 11-27-2019 PROGRESS HNO ID: [id number] Author: Kali Spicer) Shey Service: ? Author Type: Physician Type: Progress Notes Filed: 11/27/2019 2:27 PM Note Text: PATIENT NAME: Corine Buckley CLINIC NO.: [id number] ATTENDING PHYSICIAN: Kali Kat MD DATE OF SERVICE: November 27, 2019 This document has been created with the use of voice recognition technology. It may contain inaccuracies, misspellings, inaccurate syntax or inappropriate word context that escaped review. Dear Dr. ALCANTAR , [address] [phone] thank you for referring . Corine Buckley for an opinion regarding management of anemia. CHIEF COMPLAINT: I am anemic HPI: Corine Buckley is a 49 year old year old female with past medical history significant for diabetes on metformin, depression as well as hypertension who is planning to undergo a right hip replacement. Patient had preoperative labs performed on November 03, 2019 which demonstrated a white count of 5, hemoglobin 7.9, MCV 59 and a platelet count of 429 with a normal differential. Patient had significant anisopoikilocytosis as well as ovalocytes. Her chemistry panel was within normal limits. Patient states that she has not had blood work for a number of years but has had issues with anemia in the past. She denies PICA. She continues to have her menstrual cycles but she states that they're not very heavy. She denies any melena or hematochezia. She does take NSAIDs on a fairly regular basis. She denies any hematuria. She does complain of some fatigue but she states that her mobility is somewhat limited due to her hip and she does not place herself under stress. Current Outpatient Medications Medication Sig - Iron Polysacch [id number] (POLY-IRON 150 FORTE) 150-25-1 mg-mcg-mg cap TAKE 1 CAPSULE BY MOUTH TWICE DAILY FOR 30 DAYS - metFORMIN ER (GLUMETZA) 1,000 mg 24 hr tablet Take 1,000 mg by mouth daily with breakfast. - furosemide (LASIX) 20 mg tablet Take 20 mg by mouth twice daily. - escitalopram oxalate (LEXAPRO) 20 mg tablet Take 20 mg by mouth once daily. - Benazepril-Hydrochloro thiazide 20-25 mg per tablet Take 1 tablet by mouth once daily. - buPROPion XL (WELLBUTRIN XL) 300 mg 24 hr tablet Take 300 mg by mouth once daily. - orphenadrine citrate (NORFLEX ORAL) Take by mouth as needed. No current facility-administered medications for this visit. ALLERGIES No Known Allergies PAST MEDICAL HISTORY Diagnosis Date - Diabetes (HCC) - Hypertension - Major depression, chronic - OCD (obsessive compulsive disorder) PAST SURGICAL HISTORY Procedure Laterality Date - TONSILLECTOMY HX 1976 - TUBAL LIGATION 1999 FAMILY HISTORY Problem Relation Age of Onset - Diabetes Mother - Hypertension Mother - Diabetes Father - Hypertension Father - Stroke Father Social History Tobacco Use - Smoking status: Current Every Day Smoker Types: Cigarettes - Smokeless tobacco: Never Used Substance Use Topics - Alcohol use: Not Currently Comment: social - Drug use: Never REVIEW OF SYSTEMS GENERAL: No weight loss, malaise or fevers. No night sweats. HEENT: Negative for headaches, No changes in hearing or vision, no nose bleeds or other nasal problems. RESPIRATORY: Negative for cough, wheezing and shortness of breath CARDIOVASCULAR: Negative for chest pain, leg swelling and palpitations GI: Negative for abdominal discomfort, blood in stools or black stools and change in bowel habits : Negative for dysuria, frequency and incontinence MUSCULOSKELETAL: Negative for joint pain or swelling, back pain, and muscle pain. SKIN: Negative for lesions, rash, and itching. HEMATOLOGY/LYMPHOLOGY Negative for prolonged bleeding, bruising easily, and swollen nodes. NEURO: Negative for numbness or tingling of hands/feet. No weakness. PHYSICAL EXAMINATION: BP 149/72 Pulse 93 Temp 36.6 ?C (97.8 ?F) (Oral) Resp 18 Ht 166 cm (5' 5.35 ) Wt 75.4 kg (166 lb 3.2 oz) LMP 11/24/2019 SpO2 99% BMI 27.36 kg/m? Wt 75.4 kg (166 lb 3.2 oz) BMI 27.36 kg/m2 Last 3 Encounter Wt Readings: Date: Wt: 11/27/2019 75.4 kg (166 lb 3.2 oz) General appearance:ECOG PERFORMANCE STATUS: 1- Restricted in physically strenuous activity. Carries out light duty. Patient in NAD. Skin: Skin color, texture, turgor normal. No rashes or lesions. Eyes: Anicteric sclera. Pupils are equally round and reactive to light. Extraocular movements are intact. Breast: No palpable breast masses. No nipple change or discharge. Lymph Nodes: No cervical, supraclavicular, axillary or inguinal adenopathy. Oropharynx: Lips, mucosa, and tongue normal. Back: No pain to percussion. Negative SLR test Lungs clear to auscultation, No wheezing or rhonchi Heart: RRR without murmur, gallop, or rubs. Abdomen soft, non-tender. No masses, organomegaly Extremities: No deformities. No edema Neuro: Gait and speech normal. Reflexes normal and symmetric. Muscular strength intact. Sensation grossly intact. Rectal: Deferred : Deferred LABS: No results found for: GLUC, K, NA, CHLOR, CO2, CREAT, BUN, ANION, CA, TPROT, ALB, TBILI, ALKPHOS, AST, ALT No results found for: WBC, RBC, HB, HCT, MCV, MCH, MCHC, RDWCV, PLT, MPV, MPV, NEUT, ABSNEUT, LYMPHP, ABSLYMPH, MONOP, ABSMONO, EOSINP, ABSEOSIN, BASOP, ABSBASO PATH: IMAGING: ASSESSMENT AND PLAN: Corine Buckley is a 49 year old year old female past medical history significant for diabetes, depression and hypertension planning to undergo a hip replacement. Patient was noted to have significant microcytic anemia. Patient has had chronic menstrual cycles and previous history of anemia. She also uses NSAIDs on a regular basis. Her surgery was originally scheduled for next Saturday. I suggest that her surgery be delayed for a couple of weeks. We will start her on Injectafer this week and the following week and I'm assuming she'll have a good response and can then proceed safely with her surgery. I do not see an indication for blood transfusion as a surgery is not urgent. I also stated that she should get an upper endoscopy as well as a lower endoscopy and will make a GI referral. Will see her in clinic after surgery to assess her response and she will get blood draws prior to surgery as well. Dear Dr. TONNY LEI, TANNER BURK [address] [facility] [phone] thank you for allowing me to participate in Mrs Corine Buckley care, if there are any questions or concerns please do not hesitate to contact me at the number below. Kali Kat M.D. Hematology/Medical Oncology [facility] [phone] CC: Xochilt Benedict APRN-[facility] Alcantar MD Normal [facility] Reticulocyteon 11-27-2019 Abs Retic 0.082 M/uL Normal 0.0180-0.100 0 [facility] Retic% 2.1 % High 0.4-2.0 [facility] Vital Signs Date Time Vital Sign Value Performing Clinician Faci lity 01-15-2024 10:54-0500 Body height 167.6 cm Charanjit Wong MD [facility] 01-15-2024 10:54-0500 Body mass index (BMI) [Ratio] 27.45 kg/m2 Charanjit Wong MD Work Phone: [facility] [employer] [facility] 01-15-2024 10:54-0500 Body temperature 99.1 [degF] Charanjit Wong MD [facility] Phone: [facility] 01-15-2024 10:54-0500 Body weight 77.11 kg Charanjit Wong MD [facility] 01-15-2024 10:54-0500 Diastolic blood pressure 78 mm[Hg] Charanjit Wong MD [facility] 01-15-2024 10:54-0500 Heart rate 96 /min Charanjit Wong MD Work Phone: [facility] 01-15-2024 10:54-0500 SaO2% (BldA) [Mass fraction] 99 % Charanjit Wong MD [facility] Phone[facility] 01-15-2024 10:54-0500 Systolic blood pressure 128 mm[Hg] Charanjit Wong MD [facility] Encounters Encounter Date Encounter Type Care Provider Facility Start: 04-21-2024 End: 04-21-2024 ambulatory SELMA GARCIA Not Available Start: 04-07-2024 End: 04-07-2024 ambulatory SELMA GARCIA Not Available Start: 01-16-2024 Refill Charanjit Wong MD Work Phone: [facility] Comment on above: Essential hypertensi on; Depression, unspecified depression type; Type 2 diabetes mellitus with hyperosmolarity without coma, without long-term current use of insulin ([facility]); Type 2 diabetes mellitus without complication, without long-term current use of insulin ([facility]); Mixed hyperlipidemia Start: 01-15-2024 End: 01-15-2024 ambulatory CHARANJIT WONG [facility] Start: 01-15-2024 End: 01-15-2024 Office outpatient visit 15 minutes Charanjit Wong MD Work Phone: [facility] Comment on above: Anasarca (Primary Dx ) Start: 12-11-2023 Refill [facility]ys[facility] Sleek [facility] Comment on above: Mixed hyperlipidemia Start: 03-02-2023 End: 03-02-2023 ambulatory [facility] Facility:[facility] Start: 03-02-2023 End: 03-02-2023 ambulatory [facility] [employer] Xochilt Benedict Work Phone: [facility] Work Phone: Start: 03-02-2023 End: 03-02-2023 Departed Referred [place] [employer] Xochilt Benedict Work Phone: [facility] Work Phone: Start: 04-06-2020 End: 04-06-2020 Patient encounter procedure SELMA MAYAO Facility: Procedures Date Procedure Procedure Detail Performing Clinician Start: 12-12-2022 Mammography Adysan Sle ek [employer] Start: 11-27-2022 Adult depression scr eening assessment Adysan Sleek [employer] Start: 01-08-2020 Colonoscopy Adysan Sle ek [employer] Plan of Treatment Date Care Activity Detail Author Start: 01-08-2030 Screening for malignant neoplasm of colon Colonoscopy [facility] [employer] Start: 12-27-2028 DTaP,Tdap and Td Vaccines (2 - Td or Tdap) DTaP,Tdap and Td Vaccines (2 - Td or Tdap) [facility] Start: 01-14-2025 Adult BMI Screening Adult BMI Screening [facility] Start: 01-14-2025 Tobacco Screening Tobacco Screening [facility] Start: 05-23-2024 Adult BMI Screening Adult BMI Screening [facility] Start: 05-23-2024 Tobacco Screening Tobacco Screening [facility] Start: 01-15-2024 End: 01-15-2024 Patient encounter procedure 01/15/2024 10:45 AM EST Office Visit [facility] [address] [place] [address] [place] [id number] Charanjit Wong MD [address], [place] [address] [facility] Start: 12-12-2023 Screening for malignant neoplasm of breast Mammogram [facility] Start: 11-30-2023 Diabetic foot examination Diabetic Foot Exam [facility] Start: 11-27-2023 Depression Screening Depression Screening [facility] Start: 07-12-2023 COVID-19 Vaccine ( season) COVID-19 Vaccine ( season) [facility] Start: 07-12-2023 Influenza vaccination Influenza Vaccine [facility] Start: 2019 Administration of varicella zoster vaccine Zoster (Shingles) Vaccine (1 of 2) [facility] Start: 1990 Screening for malignant neoplasm of cervix Pap Smear [facility] Start: 1987 Adult BMI Follow Up Plan Adult BMI Follow Up Plan [facility] Start: 1969 Glaucoma screening Diabetic Ophthalmology Exam [facility] Immunizations Immunization Date Immunization Notes Care Provider Fa cility 11-18-2019 influenza, injectabl e, quadrivalent, preservative free Adysan Sleek [facility] 11-18-2019 influenza virus vaccine, unspecified formulation Adysan Sleek [facility] 12-27-2018 tetanus toxoid, redu tom diphtheria toxoid, and acellular pertussis vaccine, adsorbed Adysan Sleek [facility] 09-22-2018 influenza, injectabl e, quadrivalent, preservative free Adysan Sleek [facility] NEGATED: Highlighted row has not occurred!04-24-2021 pneumococcal polysaccharide vaccine, [address] [facility] Comment on above: Deferred: Patient Re fused NEGATED: Highlighted row has not occurred!10-20-2020 influenza, injectable, quadrivalent, preservative free Adysan Sleek [facility] Comment on above: Deferred: Parental d ecision Payers Date Payer Category Payer Self-pay [id number] 2022 Unknown [employer]GDE[employer] OUT OF STATE PPO/TRUST [id number] 2022-Present [phone] [address] [place] [address] [id number] 2022 Unknown [id number] 1970 Unknown [id number] 1970 Unknown [id number] 1969 Unknown [id number] 1970 Unknown [id number] 1959 Unknown [id number] Unknown [id number] Social History Date Type Detail Facility Tobacco smoking stat [facility] Unknown if ever smoked [facility] Work Phone: Start: 1970 Sex Assigned At Female F [facility] Start: 11-30-2022 Tobacco smoking stat [facility] Ex-smoker [facility] End: 04-06-1996 History of tobacco use Current smoker [facility] End: 04-06-1996 History of tobacco use Cigarette Smoker [facility] Start: 11-30-2022 Tobacco use and exposure Smoke less tobacco non-user [facility] Start: 05-23-2023 End: 01-15-2024 Alcohol intake Current drinker of alcohol (finding) [facility] Start: 11-27-2022 End: 05-23-2023 Alcohol intake [facility] Start: 11-27-2022 End: 01-12-2024 Social connection and isolation panel [facility] Do you belong to any clubs or organizations such as uatsdin groups, unions, fraternal or athletic groups, or school groups? No [facility] Are you now , , , , never or living with a partner? [facility] How often to you hav e a drink containing alcohol? 2-4 times a month [facility] How many standard dr inks containing alcohol do you have on a typical day? 1 or 2 [facility] How often do you hav e 6 or more drinks on 1 occasion? Never [facility] How hard is it for y ou to pay for the very basics like food, housing, medical care, and heating Not hard at all [facility] Do you feel stress - tense, restless, nervous, or anxious, or unable to sleep at night because your mind is troubled all the time - these days [OSQ] Only a little [facility] Start: 04-21-2021 Education 15 [facility] Start: 11-03-2019 End: 11-30-2022 Tobacco Comment social [facility] Start: 1970 Sex Assigned At Not on file P [facility] Medical Equipment Procedure Code Equipment Code Equipment Origin al Text Equipment Identifier Dates Hd Fem 36mm Opt Shl Actb G7 Bl Rpl [id number] - [id number] Start: 04-14-2020 Slv Fem Opt -3mm Tpr Hip Blx D - [id number] - [id number] Start: 10-25-2020 Goals Date Patient Goal Desired Activity /State Personal health goal Comment on above: Formatting of this n ote might be different from the original. Evaluation of progress towards goal: patient plans to discharge home w/family and home care services. History of Present illness Narrative 01-15-2024 Charanjit Wong MD - 01/15/2024 10:45 AM EST Note Date & Type Note Facility 01-15-2024 History of Presen t illness Narrative Images from the original note were not included. [address] [place] [address] [facility] [id number] Patient: Corine Buckley Date of : 1970 Encounter Date: 01/15/2024 SUBJECTIVE: Chief Complaint: Chief Complaint Patient presents with medication Follow up Patient ID: Corine Buckley is a 53 y.o. female. Pleasant 53-year-old female comes comes in for anasarca for which patient has been taking Lasix. When I 1st better and reviewed her her history her echo and stress test were within normal limits with a normal EF and no diastolic dysfunction. We elected to stop the Lasix which the patient attempted however quickly started developing arm and lower extremity edema. Patient re-initiate her Lasix in the edema resolved. Denies any palpitations, lightheaded, presyncopal symptoms. The following portions of the patient's history were reviewed and updated as appropriate: allergies, current medications, past family history, past medical history, past social history, past surgical history and problem list. PHYSICAL EXAMINATION: Vitals: 01/15/24 1054 BP: 128/78 Pulse: 96 Temp: 37.3 C (99.1 F) SpO2: 99% Weight: 77.1 kg (170 lb) Height: 167.6 cm (5' 5.98 ) Physical Exam Vitals reviewed. Constitutional: General: She is not in acute distress. Appearance: Normal appearance. Eyes: Extraocular Movements: Extraocular movements intact. Pupils: Pupils are equal, round, and reactive to light. Cardiovascular: Rate and Rhythm: Normal rate and regular rhythm. Pulses: Normal pulses. Heart sounds: Normal heart sounds. Pulmonary: Effort: Pulmonary effort is normal. No respiratory distress. Breath sounds: Normal breath sounds. No wheezing or rhonchi. Abdominal: General: Bowel sounds are normal. There is no distension. Palpations: Abdomen is soft. There is no mass. Tenderness: There is no abdominal tenderness. There is no right CVA tenderness, left CVA tenderness or guarding. Musculoskeletal: Cervical back: Normal range of motion and neck supple. Neurological: Mental Status: She is alert and oriented to person, place, and time. Mental status is at baseline. ASSESSMENT/PLAN: Corine was seen today for medication . Diagnoses and all orders for this visit: Briseyda Responding multiple Lasix, has been here to therapy regularly, no electrolyte deficiencies. Considered etiologies of nephrotic syndrome, cirrhosis, congestive heart failure, low protein states however patient blood work, cardiac imaging all appear within normal limits. Will have low threshold to assess potassium level if needed in the future. CHARANJIT WONG MD Family Medicine Physician [facility] / [facility] 01/15/24 This note was completed with voice recognition software. The document was reviewed for errors however some may still be present. Please do not hesitate to contact/Epic msg the author to verify any questions/concerns. documented in this encounter [facility] Evaluation note Note Date & Type Note Facility Evaluation note No assessment information [facility] Work Phone: Evaluation note Note Date & Type Note Facility Evaluation note Diagnosis Mixed hyperlipidemia documented in this encounter [facility] Evaluation note Note Date & Type Note Facility Evaluation note Diagnosis Anasarca- Primary Edema documented in this encounter [facility] Evaluation note Note Date & Type Note Facility Evaluation note Diagnosis Essential hypertension Unspecified essential hypertension Depression, unspecified depression type Type 2 diabetes mellitus with hyperosmolarity without coma, without long-term current use of insulin ([facility]) Type 2 diabetes mellitus without complication, without long-term current use of insulin ([facility]) Mixed hyperlipidemia documented in this encounter [facility] Instructions Note Date & Type Note Facility Instructions Not on filedocumented in this en counter [facility] Instructions Note Date & Type Note Facility Instructions Not on filedocumented in this en counter [facility] Summary Purpose Family History No Family History Records Found Relationship Condition Age at Onset Recorded Date/T shama Not Specified Diabetes mellitus Unknown Hypertension Unknown father Diabetes mellitus Unknown Advance Directives No Advanced Directives Records Found Advance Directive Response Recorded Date/ Time Advance Directives No December 2:45pm Chief Complaint and Reason for Visit Chief Complaint Complete HBA1C TSH a nd VIT D Additional Source Comments INFORMATION SOURCE (unrecogn ized section and content) DATE CREATED AUTHOR 12/04/2019 [facility] DATE CREATED AUTHOR AUTHOR'S ORGANIZ ATION 04/09/2020 [facility] DATE CREATED AUTHOR AUTHOR'S ORGANIZ ATION 03/03/2023 [facility] DATE CREATED AUTHOR AUTHOR'S ORGANIZ ATION 01/16/2024 [facility] DATE CREATED AUTHOR AUTHOR'S ORGANIZ ATION 04/21/2024 [facility] [employer] Care Teams (unrecognized sec tion and content) Team Status: Active Member Role Status Dates Xochilt Benedict [facility] Primary Care Provider Active Team Status: Inactive Member Role Status Dates Xochilt Benedict [facility] Primary Care Provider Active Outreach Community Attending Provider Active [employer] Relationship Specialty Start Date End Date Charanjit Wong MD [address] [place] [address] PCP - General Internal Medicine 05/11/23 [employer] Relationship Specialty Start Date End Date Charanjit Wong MD [address] [place] [address] PCP - General Internal Medicine 05/11/23 Goals (unrecognized section and content) Goals may be documented in a n alternate section Reason for Visit (unrecogniz ed section and content) Reason Comments medication Follow up Reason Onset Date Comments Med Refill 01/16/2024 FOR RECORDS PERTAINING TO PATIENTS WHO ARE OR HAVE BEEN ENROLLED IN A CHEMICAL DEPENDENCY/SUBSTANCEABUSE PROGRAM, SOME INFORMATION MAY BE OMITTED. This clinical summary was aggregated from multiple sources. Caution should be exercised in using it in the provision of clinical care. This summary normalizes information from multiple sources, and as a consequence, information in this document may materially change the coding, format and clinical context of patient data. In addition, data may be omitted in some cases. CLINICAL DECISIONS SHOULD BE BASED ON THE PRIMARY CLINICAL RECORDS. [facility], [facility]. provides no warranty or guarantee of the accuracy or completeness of information in this document.
== END 2024-04-21 19:06 | disposition home or self-care (01) ==
LOC: LAB 19:05
PROVIDERS: Visit Provider Obstetrics & Gynecology
DX: Z01.419 Encounter for gynecological examination (general) (routine) without abnormal findings (principal)
CPT/HCPCS: 87624; 88175

== ENCOUNTER 2024-05-07 09:09 | Outpatient (OUT) | payer BC, SELFPAY ==
--- NOTE | 2024-05-07 09:15 | ECG_ITS ---
[facility] Test Date: 2024-05-07 Pat Name: JUDAH BERTRAND Department: Room: - Gender: Female Assistant Track Coach: : 1970 Requested By: SELMA GARCIA Order Number: [id number] Reading MD: NEIL FLORES Measurements Intervals [place] Rate: 66 P: 21 CA: 152 QRS: 15 QRSD: 94 T: 18 QT: 390 QTc: 411 Interpretive Statements SINUS RHYTHM No previous ECG available for comparison Electronically Signed On 05-07-2024 21:45:16 EDT by NEIL FLORES
--- OUTSIDE RECORDS SUMMARY | 2024-05-07 09:24 | XMS_ITS | CCD ---
Author Organization [facility]iniSywa Care Team Providers Care Roll Tube Setter Name Role Phone SELMA GARCIA Admitting Unavailable SELMA GARCIA Attending Unavailable SELMA GARCIA Consulting Unavailable AUGUSTIN Benedict-BAO Mathis Primary Care Provider Community, Outreach Attending Provider Community, Outreach Admitting Unavailable Community, Outreach Attending Unavailable Xochilt Benedict Primary Care Unavailable JasbirCharanjit kwong MD Primary Care Provider [phone] SELMA GARCIA Attending Unavailable SELMA GARCIA Attending Unavailable CHARANJIT WONG Attending Unavailable CHARANJIT WONG Referring Unavailable CHARANJIT WONG Primary Care Unavailable CHARANJIT WONG Attending Unavailable CHARANJIT WONG Referring Unavailable CHARANJIT WONG Primary Care Unavailable Medications Current Medications Medication Drug Class(es) [...] coma, without long-term current use of insulin ([facility]) , Type 2 diabetes mellitus without complication, without long-term current use of insulin ([facility]) TAKE 1 TABLET TWICE A DAY WITH [...] tablet by mouth once daily Iron Ps Otizftp-T31-Yveug Acid Discontinued 1 TAB PO Daily January 07, 2020 1:00am January 08, 2020 9:47am Problems Active Problems Problem Classification Problem Date Documented Date Episodic/Chronic Deficiency and other anemia (3 sources) Iron deficiency anemia due to blood loss; Translations: [Iron deficiency anemia secondary to blood loss (chronic)] Onset: 11-27-2019 04-07-2020 Chronic Diabetes mellitus with complications (5 sources) Type 2 diabetes mellitus; Translations: [Type 2 diabetes mellitus with hyperosmolarity without nonketotic hyperglycemic-hyperos molar coma ([facility])] Onset: 04-07-2020 04-07-2020 Chronic Diabetes mellitus without complication (1 source) Type 2 diabetes mellitus without complication; Translations: [Type 2 diabetes mellitus without complications] 01-16-2024 Chronic Disorders of lipid metabolism (3 sources) Mixed hyperlipidemia; Translations: [Mixed hyperlipidemia] Onset: 04-23-2024 12-11-2023 Chronic Essential hypertension (1 source) Essential hypertension; Translations: [Essential (primary) hypertension] 01-16-2024 Chronic Immunizations and screening for infectious disease (1 source) Encounter for screening for human papillomavirus (HPV); Translations: [ENC SCREENING HUMAN PAPILLOMAVIRUS] Onset: 04-07-2020 Episodic Mood disorders (1 source) Depressive disorder; Translations: [Depression, unspecified depression type] 01-16-2024 Chronic Nutritional deficiencies (1 source) Vitamin D deficiency, unspecified; Translations: [Vitamin D deficiency, unspecified] Onset: 04-23-2024 Chronic Nutritional deficiencies (1 source) Iron deficiency; Translations: [Iron deficiency] Onset: 04-23-2024 Episodic Osteoarthritis (6 sources) Primary coxarthrosis, bilateral; Translations: [...] Edema, generalized; Translations: [Generalized edema] 01-15-2024 Episodic Unclassified (1 source) Results Onset: 04-23-2024 Unclassified (1 source) medication Onset: 01-15-2024 Past or Other Problems Problem Classification Problem Date Documented Da te Episodic/Chronic Mood disorders (3 sources) Mood disorders Onset: 11-27-2022 11-27-2022 Results Test Name Value Interpretation Reference Range Facility Alanine aminotransferase [En zymatic activity/volume] in Serum or PlasmaOrdered By: [facility] on 03-02-2023 ALT [Catalytic activity/Vol] 28 U/L 7-52 [facility] Albumin [Mass/volume] in Ser um or Plasma by Bromocresol green (BCG) dye binding methoOrdered By: [facility]ACH [facility] on 03-02-2023 Albumin BCG dye [Mass/Vol] 4.5 g/dL 3.5-5.7 [facility] Alkaline phosphatase [Enzyma tic activity/volume] in Serum or PlasmaOrdered By: [facility] on 03-02-2023 ALP [Catalytic activity/Vol] 76 U/L 34-104 [facility] Aspartate aminotransferase [ Enzymatic activity/volume] in Serum or PlasmaOrdered By: [facility] on 03-02-2023 AST [Catalytic activity/Vol] 17 U/L 13-39 [facility] Bilirubin.total [Mass/volume ] in Serum or PlasmaOrdered By: [facility] on 03-02-2023 Bilirubin [Mass/Vol] 0.8 mg/dL 0.3-1.0 [facility] CBC Without Differentialon 0 03-02-2023 Erythrocyte distribution width (RBC) [Ratio] 13.0 % Normal 11.9-15.3 [facility] Comment on above: Performed By: #### C BCNOOUTREACH, OUTREACH GLYCO, OUTREACH CMP, OUTREACH LIPID, OUTREACH TSH, OUTREACH VITD #### [facility] [address] [place] [address] Hematocrit (Bld) [Volume fraction] 42.7 % Normal 34.0-46.4 [facility] Comment on above: Performed By: #### C BCNOOUTREACH, OUTREACH GLYCO, OUTREACH CMP, OUTREACH LIPID, OUTREACH TSH, OUTREACH VITD #### [address] Hemoglobin (Bld) [Mass/Vol] 14.7 g/dL Normal 11.8-15.4 [facility] Comment on above: Performed By: #### C BCNOOUTREACH, OUTREACH GLYCO, OUTREACH CMP, OUTREACH LIPID, OUTREACH TSH, OUTREACH VITD #### [address] MCH (RBC) [Entitic mass] 28.9 pg Normal 24.7-34.3 [facility] Comment on above: Performed By: #### C BCNOOUTREACH, OUTREACH GLYCO, OUTREACH CMP, OUTREACH LIPID, OUTREACH TSH, OUTREACH VITD #### [facility] [address] [place] [address] MCV (RBC) [Entitic vol] 84.2 fL Normal 80-100 [facility] Comment on above: Performed By: #### C BCNOOUTREACH, OUTREACH GLYCO, OUTREACH CMP, OUTREACH LIPID, OUTREACH TSH, OUTREACH VITD #### [address] Mean Corpuscular HGB Conc 34.3 g/dL Normal 32.0-35.0 [facility] Comment on above: Performed By: #### C BCNOOUTREACH, OUTREACH GLYCO, OUTREACH CMP, OUTREACH LIPID, OUTREACH TSH, OUTREACH VITD #### [address] Platelet mean volume (Bld) [Entitic vol] 7.1 fL Normal 6.3-10.7 [facility] Comment on above: Result Comment: PERF ORMED BY: [place] [id number] PATHOLOGIST AUTOMOTIVE UPHOLSTERER MARY ALICE MUNOZ M.D. Performed By: #### C BCNOOUTREACH, OUTREACH GLYCO, OUTREACH CMP, OUTREACH LIPID, OUTREACH TSH, OUTREACH VITD #### [facility] [address] [place] [address] Platelets (Bld) [#/Vol] 375 10*3/uL Normal 150-450 [facility] Comment on above: Performed By: #### C BCNOOUTREACH, OUTREACH GLYCO, OUTREACH CMP, OUTREACH LIPID, OUTREACH TSH, OUTREACH VITD #### [address] RBC (Bld) [#/Vol] 5.07 10*6/uL High 3.60-5.00 [facility] Comment on above: Performed By: #### C BCNOOUTREACH, OUTREACH GLYCO, OUTREACH CMP, OUTREACH LIPID, OUTREACH TSH, OUTREACH VITD #### [address] WBC (Bld) [#/Vol] 5.8 10*3/uL Normal 3.8-11.6 [facility] Comment on above: Performed By: #### C BCNOOUTREACH, OUTREACH GLYCO, OUTREACH CMP, OUTREACH LIPID, OUTREACH TSH, OUTREACH VITD #### [facility] [address] [place] [address] CMP Outreachon 03-02-2023 Albumin [Mass/Vol] 4.5 g/dL Normal 3.5-5.7 [facility] Comment on above: Performed By: #### C BCNOOUTREACH, OUTREACH GLYCO, OUTREACH CMP, OUTREACH LIPID, OUTREACH TSH, OUTREACH VITD #### [address] ALP [Catalytic activity/Vol] 76 U/L Normal 34-104 [facility] Comment on above: Performed By: #### C BCNOOUTREACH, OUTREACH GLYCO, OUTREACH CMP, OUTREACH LIPID, OUTREACH TSH, OUTREACH VITD #### [address] [place] [address] [place] ALT [Catalytic activity/Vol] 28 U/L Normal 7-52 [facility] Comment on above: Performed By: #### C BCNOOUTREACH, OUTREACH GLYCO, OUTREACH CMP, OUTREACH LIPID, OUTREACH TSH, OUTREACH VITD #### [facility] [address] [id number] [place] Anion gap [Moles/Vol] 12.5 mmol/L Normal 6.0-15.0 [facility] Comment on above: Performed By: #### C BCNOOUTREACH, OUTREACH GLYCO, OUTREACH CMP, OUTREACH LIPID, OUTREACH TSH, OUTREACH VITD #### [facility] [address] [id number] [place] AST [Catalytic activity/Vol] 17 U/L Normal 13-39 [facility] Comment on above: Performed By: #### C BCNOOUTREACH, OUTREACH GLYCO, OUTREACH CMP, OUTREACH LIPID, OUTREACH TSH, OUTREACH VITD #### [facility] [address] [id number] [place] Bilirubin [Mass/Vol] 0.8 mg/dL Normal 0.3-1.0 [facility] Comment on above: Performed By: #### C BCNOOUTREACH, OUTREACH GLYCO, OUTREACH CMP, OUTREACH LIPID, OUTREACH TSH, OUTREACH VITD #### [facility] [address] [phone] [place] Calcium [Mass/Vol] 9.1 mg/dL Normal 8.6-10.3 [facility] Comment on above: Performed By: #### C BCNOOUTREACH, OUTREACH GLYCO, OUTREACH CMP, OUTREACH LIPID, OUTREACH TSH, OUTREACH VITD #### [facility] [address] [place] [address] [place] Chloride [Moles/Vol] 102 mmol/L Normal 98-107 [facility] Comment on above: Performed By: #### C BCNOOUTREACH, OUTREACH GLYCO, OUTREACH CMP, OUTREACH LIPID, OUTREACH TSH, OUTREACH VITD #### [facility] [address] [phone] [place] CO2 [Moles/Vol] 25.8 mmol/L Normal 21.0-31.0 [facility] Comment on above: Performed By: #### C BCNOOUTREACH, OUTREACH GLYCO, OUTREACH CMP, OUTREACH LIPID, OUTREACH TSH, OUTREACH VITD #### [facility] [address] Creatinine [Mass/Vol] 0.63 mg/dL Normal 0.60-1.20 [facility] Comment on above: Performed By: #### C BCNOOUTREACH, OUTREACH GLYCO, OUTREACH CMP, OUTREACH LIPID, OUTREACH TSH, OUTREACH VITD #### [facility] [address] [place] [address] [place] GFR/1.73 sq M.predicted MDRD (S/P/Bld) [Vol rate/Area] mL/min/{1.73_m2} Normal [facility] Comment on above: Performed By: #### C BCNOOUTREACH, OUTREACH GLYCO, OUTREACH CMP, OUTREACH LIPID, OUTREACH TSH, OUTREACH VITD #### [facility] [address] [place] [address] Glucose [Mass/Vol] 157 mg/dL High 70-100 [facility] Comment on above: Result Comment: [facility] Glucose Reference Range is dependent on time and content of last meal. Glucose of more than 200 mg/dL in a nonstressed, ambulatory subject supports the diagnosis of Diabetes Mellitus. ADA recommended reference range Performed By: #### C BCNOOUTREACH, OUTREACH GLYCO, OUTREACH CMP, OUTREACH LIPID, OUTREACH TSH, OUTREACH VITD #### [facility] [address] [place] [address] [place] Potassium [Moles/Vol] 4.3 mmol/L Normal 3.5-5.1 [facility] Comment on above: Performed By: #### C BCNOOUTREACH, OUTREACH GLYCO, OUTREACH CMP, OUTREACH LIPID, OUTREACH TSH, OUTREACH VITD #### [place] [address] [place] Protein [Mass/Vol] 6.8 g/dL Normal 6.4-8.9 [facility] Comment on above: Performed By: #### C BCNOOUTREACH, OUTREACH GLYCO, OUTREACH CMP, OUTREACH LIPID, OUTREACH TSH, OUTREACH VITD #### [facility] [address] [place] [address] [place] Sodium [Moles/Vol] 136 mmol/L Normal 136-145 [facility] Comment on above: Performed By: #### C BCNOOUTREACH, OUTREACH GLYCO, OUTREACH CMP, OUTREACH LIPID, OUTREACH TSH, OUTREACH VITD #### [facility] [address] [phone] [place] Urea nitrogen [Mass/Vol] 21 mg/dL Normal 7-25 [facility] Comment on above: Performed By: #### C BCNOOUTREACH, OUTREACH GLYCO, OUTREACH CMP, OUTREACH LIPID, OUTREACH TSH, OUTREACH VITD #### [facility] [address] [phone] [place] Calcium [Mass/volume] in Ser um or PlasmaOrdered By: [facility]RE[facility] on 03-02-2023 Calcium [Mass/Vol] 9.1 mg/dL 8.6-10.3 [facility] Carbon dioxide, total [Moles /volume] in Serum or PlasmaOrdered By: OUTREACH [facility] on 03-02-2023 CO2 [Moles/Vol] 25.8 mmol/L 21.0-31.0 [facility] Chloride [Moles/volume] in S aleena or PlasmaOrdered By: OUTREACH [facility] on 03-02-2023 Chloride [Moles/Vol] 102 mmol/L 98-107 [facility] Cholesterol [Mass/volume] in Serum or PlasmaOrdered By: OUTREACH [facility] on 03-02-2023 Cholesterol [Mass/Vol] 162 mg/dL 140-200 [facility] Comment on above: Chol less than 200 m g/dl low riskChol 201-239 mg/dl borderline riskChol 240 mg/dl and greater high risk Cholesterol in LDL Calc [Mas s/Vol]Ordered By: OUTREACH [facility] on 03-02-2023 Cholesterol in LDL [Mass/Vol] 100 mg/dL 0-100 [facility] Comment on above: LDL ATP III CLASSIFI CATIONLDL less than 100 mg/dL OptimalLDL 100-129 mg/dL Near or above optimalLDL 130-159 mg/dL Borderline highLDL 160-189 mg/dL HighLDL greater than 189 mg/dL Very high Cholesterol in VLDL Calc [Ma ss/Vol]Ordered By: [facility] on 03-02-2023 Cholesterol in VLDL [Mass/Vol] 23 mg/dL [facility] Creatinine [Mass/volume] in Serum or PlasmaOrdered By: [facility] on 03-02-2023 Creatinine [Mass/Vol] 0.63 mg/dL 0.60-1.20 [facility] Erythrocyte distribution wid th Auto (RBC) [Ratio]Ordered By: [facility] on 03-02-2023 Erythrocyte distribution width (RBC) [Ratio] 13.0 % 11.9-15.3 [facility] Glucose [Mass/volume] in Ser um or PlasmaOrdered By: [facility] on 03-02-2023 Glucose [Mass/Vol] 157 mg/dL 70-100 [facility] Comment on above: ADA recommended refe rence rangeRandom Glucose Reference Range is dependent on time and content of last meal. Glucose of more than 200 mg/dL in a nonstressed, ambulatory subject supports the diagnosis of Diabetes Mellitus. Glucose mean value [Mass/vol ume] in Blood Estimated from glycated hemoglobinOrdered By: [facility] on 03-02-2023 Average glucose Estimated from glycated hemoglobin (Bld) [Mass/Vol] 160 mg/dL [facility] Hematocrit Auto (Bld) [Volum e fraction]Ordered By: [facility] on 03-02-2023 Hematocrit (Bld) [Volume fraction] 42.7 % 34.0-46.4 [facility] Hemoglobin [Mass/volume] in BloodOrdered By: [facility] on 03-02-2023 Hemoglobin (Bld) [Mass/Vol] 14.7 g/dL 11.8-15.4 [facility] Laboratory - Hematology and Cell countsOrdered By: [facility] on 03-02-2023 HbA1c (Bld) [Mass fraction] 7.2 % 4.3-5.6 [facility] Comment on above: Increased risk for d iabetes: 5.7 - 6.4diabetes: >6.4glycemic control for adults with diabetes: <7.0 Leukocytes [#/volume] correc chuy for nucleated erythrocytes in Blood by Automated counOrdered By: [facility] on 03-02-2023 WBC corrected for nucl RBC Auto (Bld) [#/Vol] 5.8 10*3/uL 3.8-11.6 [facility] Lipid Profile Outreachon Cholesterol [Mass/Vol] 162 mg/dL Normal 140-200 [facility] Comment on above: Result Comment: Chol less than 200 mg/dl low risk Chol 201-239 mg/dl borderline risk Chol 240 mg/dl and greater high risk Performed By: #### C BCNOOUTREACH, OUTREACH GLYCO, OUTREACH CMP, OUTREACH LIPID, OUTREACH TSH, OUTREACH VITD #### [facility] [address] [place] [address] [place] Cholesterol in HDL [Mass/Vol] 39 mg/dL Normal 35-85 [facility] Comment on above: Result Comment: HDL CHOL ATP-III CLASSIFICATION Cardiovascular Risk HDL > or equal to 60 mg/dL LOW HDL < 40 mg/dL HIGH Performed By: #### C BCNOOUTREACH, OUTREACH GLYCO, OUTREACH CMP, OUTREACH LIPID, OUTREACH TSH, OUTREACH VITD #### [facility] [address] Cholesterol.total/Choles terol in HDL [Mass ratio] 4.2 {ratio} Normal <5.0 [facility] Comment on above: Performed By: #### C BCNOOUTREACH, OUTREACH GLYCO, OUTREACH CMP, OUTREACH LIPID, OUTREACH TSH, OUTREACH VITD #### [facility] [address] [id number] [facility] LDL Cholesterol,Calculated 100 mg/dL Normal 0-100 [facility] Comment on above: Result Comment: LDL ATP III CLASSIFICATION LDL less than 100 mg/dL Optimal LDL 100-129 mg/dL Near or above optimal LDL 130-159 mg/dL Borderline high LDL 160-189 mg/dL High LDL greater than 189 mg/dL Very high Performed By: #### C BCNOOUTREACH, OUTREACH GLYCO, OUTREACH CMP, OUTREACH LIPID, OUTREACH TSH, OUTREACH VITD #### [facility] [address] [phone] [place] Triglyceride w/Reflex 116 mg/dL Normal 0-149 [facility] Comment on above: Result Comment: TRIG ATP III CLASSIFICATION TRIG less than 150 mg/dL Normal TRIG 150-199 mg/dL Borderline high TRIG 200-500 mg/dL High TRIG greater than 500 mg/dL Very high Standard traceable to the Center for Disease Conrtrol and Prevention (CDC) test method. Performed By: #### C BCNOOUTREACH, OUTREACH GLYCO, OUTREACH CMP, OUTREACH LIPID, OUTREACH TSH, OUTREACH VITD #### [facility] [address] VLDL CHOLESTEROL 23 mg/dL Normal [facility] Comment on above: Performed By: #### C BCNOOUTREACH, OUTREACH GLYCO, OUTREACH CMP, OUTREACH LIPID, OUTREACH TSH, OUTREACH VITD #### [facility] [address] MCH Auto (RBC) [Entitic mass ]Ordered By: [facility] on 03-02-2023 MCH (RBC) [Entitic mass] 28.9 pg 24.7-34.3 [facility] MCHC Auto (RBC) [Mass/Vol]Or dered By: [facility]RE[facility] on 03-02-2023 MCHC (RBC) [Mass/Vol] 34.3 g/dL 32.0-35.0 [facility] MCV Auto (RBC) [Entitic vol] Ordered By: [facility] on 03-02-2023 MCV (RBC) [Entitic vol] 84.2 fL 80-100 F [facility] No Panel InformationOrdered By: OUTREACH COMMUNITY on 03-02-2023 Estimated GFR (CKD-EPI) > 60.0 mL/Min [facility] Creatinine Clearance (Chem N/A [facility] Outreach Glycoon 03-02-2023 Glucose [Mass/Vol] 160 mg/dL Normal [facility] Comment on above: Result Comment: PERF ORMED BY: [place] [id number] PATHOLOGIST AUTOMOTIVE UPHOLSTERER MARY ALICE MUNOZ M.D. Performed By: #### C BCNOOUTREACH, OUTREACH GLYCO, OUTREACH CMP, OUTREACH LIPID, OUTREACH TSH, OUTREACH VITD #### [facility] [address] HbA1c (Bld) [Mass fraction] 7.2 % High 4.3-5.6 [facility] Comment on above: Result Comment: Incr eased risk for diabetes: 5.7 - 6.4 diabetes: >6.4 glycemic control for adults with diabetes: <7.0 Performed By: #### C BCNOOUTREACH, OUTREACH GLYCO, OUTREACH CMP, OUTREACH LIPID, OUTREACH TSH, OUTREACH VITD #### [facility] [address] [id number] [facility] Outreach VitD 25on 3 Outreach VitD 25 31.8 ng/mL Normal 30-100 [facility] Comment on above: Result Comment: JAZMÍN MIN D STATUS 25(OH)VITAMIN D RANGE (ng/mL) Deficient <20 Insufficient 20 to <30 Sufficient 30 to 100 Reference: Henna MF,Brina SPRAGUE, Eric FERRARO, et al. Evaluation,treatment, and prevention of vitamin D deficiency; an Endocrine Society clinical practice guideline. JCEM. 2010; 96(7):1911-30. PERFORMED BY: [place] [address] PATHOLOGIST AUTOMOTIVE UPHOLSTERER MARY ALICE MUNOZ M.D. Performed By: #### C BCNOOUTREACH, OUTREACH GLYCO, OUTREACH CMP, OUTREACH LIPID, OUTREACH TSH, OUTREACH VITD #### [facility] [address] [id number] [facility] Platelet mean volume Auto (B ld) [Entitic vol]Ordered By: [facility] on 03-02-2023 Platelet mean volume (Bld) [Entitic vol] 7.1 fL 6.3-10.7 [facility] Platelets Auto (Bld) [#/Vol] Ordered By: [facility] on 03-02-2023 Platelets (Bld) [#/Vol] 375 10*3/uL 150-450 [facility] Potassium [Moles/volume] in Serum or PlasmaOrdered By: [facility] on 03-02-2023 Potassium [Moles/Vol] 4.3 mmol/L 3.5-5.1 [facility] Protein [Mass/volume] in Ser um or PlasmaOrdered By: [facility] on 03-02-2023 Protein [Mass/Vol] 6.8 g/dL 6.4-8.9 [facility] RBC Auto (Bld) [#/Vol]Ordere d By: [facility] on 03-02-2023 RBC (Bld) [#/Vol] 5.07 10*6/uL 3.60-5.00 [facility] Serum or plasma anion gap de terminationOrdered By: OUTREACH COMMUNITY on 03-02-2023 Anion gap [Moles/Vol] 12.5 mmol/L 6.0-15.0 [facility] Serum or plasma high density lipoprotein (HDL) cholesterol measurementOrdered By: OUTREACH [facility] on 03-02-2023 Cholesterol in HDL [Mass/Vol] 39 mg/dL 35-85 [facility] Comment on above: HDL CHOL ATP-III CLA SSIFICATION Cardiovascular RiskHDL > or equal to 60 mg/dL LOWHDL < 40 mg/dL HIGH Serum or plasma total choles terol/high density lipoprotein (HDL) cholesterol mass ratOrdered By: [facility]RE[facility] on 03-02-2023 Cholesterol.total/Choles terol in HDL [Mass ratio] 4.2 {ratio} <5.0 [facility] Sodium [Moles/volume] in Ser um or PlasmaOrdered By: OUTREACH [facility] on 03-02-2023 Sodium [Moles/Vol] 136 mmol/L 136-145 [facility] Thyroid Stimulating Hormoneo n 03-02-2023 TSH Qn 1.52 m[IU]/L Normal 0.45-5.33 [facility] Comment on above: Performed By: #### C BCNOOUTREACH, OUTREACH GLYCO, OUTREACH CMP, OUTREACH LIPID, OUTREACH TSH, OUTREACH VITD #### [facility] [address] Thyrotropin [Units/volume] i n Serum or PlasmaOrdered By: [facility]REACH [facility] on 03-02-2023 TSH Qn 1.52 m[IU]/L 0.45-5.33 [facility] Triglyceride [Mass/volume] i n Serum or PlasmaOrdered By: [facility]RE[facility] on 03-02-2023 Triglyceride [Mass/Vol] 116 mg/dL 0-149 F [facility] Comment on above: TRIG ATP III CLASSIF ICATIONTRIG less than 150 mg/dL NormalTRIG 150-199 mg/dL Borderline highTRIG 200-500 mg/dL High TRIG greater than 500 mg/dL Very highStandard traceable to the Center for Disease Conrtrol and Prevention (CDC) test method. Urea nitrogen [Mass/volume] in Serum or PlasmaOrdered By: [facility] on 03-02-2023 Urea nitrogen [Mass/Vol] 21 mg/dL 7-25 [facility] Vitamin D+Metabolites [Mass/ volume] in Serum or PlasmaOrdered By: [facility]REACH [facility] on 03-02-2023 Vitamin D+Metabolites [Mass/Vol] 31.8 ng/mL 30-100 [facility] Comment on above: VITAMIN D STATUS 25( [place])VITAMIN D RANGE (ng/mL) Deficient <20 Insufficient 20 to <30Sufficient 30 to 100Reference: Henna MF,Brina SPRAGUE, Eric FERRARO, et al. Evaluation,treatment, and prevention of vitamin D deficiency; an Endocrine Society clinical practice guideline. JCEM. 2010; 96(7):1911-30. PAP ACOG PANEL 2: 30 to 65on 04-09-2020 Age Gdln ACOG Testing 30-65 Normal [facility] Comment on above: Performed By: #### [id number] #### [facility] [address] [address] Malena Mariano DIAGNOSIS: Comment Normal [facility] Comment on above: Result Comment: NEGA TIVE FOR INTRAEPITHELIAL LESION OR MALIGNANCY. Performed at: [facility] Performed By: #### [id number] #### [facility] [address] [address] Malena Mariano HPV Aptima Negative Normal Negative [facility] Comment on above: Result Comment: This test was developed and its performance characteristics determined by [employer]. It has not been cleared or approved by the Food and Drug Administration. This nucleic acid amplification test detects fourteen high-risk HPV types (16,18,31,33,35,39,45,51,52,56,58,59,66,68) without differentiation. Performed at: =G Performed By: #### [id number] #### [facility] [address] [id number] Malena Mariano Methodology: Comment Normal [facility] Comment on above: Result Comment: This liquid based SurePath(R) pap test was screened with the assistance of an image guided system. Performed at: WB Performed By: #### [id number] #### [facility] [address] [place] [address] Malena Mariano Note: Comment Normal [facility] Comment on above: Result Comment: The Pap smear is a screening test designed to aid in the detection of premalignant and malignant conditions of the uterine cervix. It is not a diagnostic procedure and should not be used as the sole means of detecting cervical cancer. Both false-positive and false-negative reports do occur. . Performed at: WB Performed By: #### [id number] #### [facility] [address] [place] [address] Malena Mariano Performed by: Comment Normal [facility] [place] Comment on above: Result Comment: Arianne Figueredo Community Cultural Development Officer (ASCP) Performed at: WB Performed By: #### [id number] #### [facility] [address] [place] [address] Malena Mariano Specimen adequacy: Comment Normal [facility] Comment on above: Result Comment: Sati sfactory for evaluation. No endocervical cells are present. This is consistent with a history of hysterectomy. Performed at: WB Performed By: #### [id number] #### [facility] [address] [place] [address] Malena Mariano . . Normal [facility] Comment on above: Result Comment: Perf ormed at: WB Performed By: #### [id number] #### [facility] [address] [place] [address] Malena Mariano CBCon 12-04-2019 Absolute nRBC <0.01 Normal <0.01 [facility] Erythrocyte distribution width (RBC) [Ratio] 27.7 % High 11.5-15.0 [facility] Hematocrit (Bld) [Volume fraction] 33.6 % Low 36.0-46.0 [facility] Hemoglobin (Bld) [Mass/Vol] 9.4 g/dL Low 11.5-15.5 [facility] MCH (RBC) [Entitic mass] 20.0 pG Low 26.0-34.0 [facility] MCHC (RBC) [Mass/Vol] 28.0 g/dL Low 30.5-36.0 [facility] MCV (RBC) [Entitic vol] 71.5 fL Low 80.0-100.0 [facility] Platelet mean volume (Bld) [Entitic vol] 8.8 fL Low 9.0-12.7 [facility] Platelets (Bld) [#/Vol] 477 10*3/uL High 150-400 [facility] RBC (Bld) [#/Vol] 4.70 10*6/uL Normal 3.90-5.20 [facility] WBC (Bld) [#/Vol] 5.46 10*3/uL Normal 3.70-11.00 [facility] CNOVSPon 11-27-2019 CNOVSP Visit (SP) Office (HEMASA) CORINE BUCKLEY ([id number]) 1970 F Date Time Provider Department 11/27/19 1:00 PM KALI KAT) HEMASA During your visit today, we recorded the following information about you: Temperature Pulse Respiration Blood pressure 97.8 degrees 93/minute 18/minute 149/72 Weight Height Last Period 75.4 kg 1.66 m 11/24/19 Kali Kat MD 11/27/2019 2:27 PM Signed PATIENT NAME: Corine Buckley [facility] NO.: [id number] ATTENDING PHYSICIAN: Kali Kat MD DATE OF SERVICE: November 27, 2019 This document has been created with the use of voice recognition technology. It may contain inaccuracies, misspellings, inaccurate syntax or inappropriate word context that escaped review. Dear Dr. TONNY LEI, [address] [address] thank you for referring Mrs. Corine Buckley [...] Outpatient Medications Medication Sig - Iron Polysacch [id number] (POLY-IRON 150 FORTE) 150-25-1 mg-mcg-mg cap TAKE [...] surgery as well. Dear TANNER Melgar JR [address] [place] [phone] thank you for allowing me to participate in Mrs Corine Buckley care, if there are any questions or concerns please do not hesitate to contact me at the number below. Kali Kat M.D. Hematology/Medical Oncology [facility] [phone] CC: Xochilt Benedict APRN-STEREO EQUIPMENT REPAIRER MD Kali Marcelo MD 11/27/2019 3:51 PM Signed Addended by: KALI KAT MD on: 11/27/2019 03:51 PM Modules accepted: Orders Referring Provider: TANNER ALCANTAR JR [[id number]] Allergies As of Date: 11/27/2019 (No Known Allergies) Date Reviewed: 11/27/2019 Reviewed by: Kali Spicer) Shey - Fully Assessed Reason for Visit: Anemia [6] Cmt: new patient consult Primary Visit Diagnosis:Iron deficiency anemia due to chronic blood loss [D50.0] Order(s):IRON + TIBC [SQIRON] Order #: [id number] FUTURE FERRITIN BLD [SQFERR] Order #: [id number] FUTURE RETIC COUNT [SQRETIC] Order #: [id number] FUTURE CBC + DIFF (FOR REMOTE [facility] USE) [SQRCBCDF] Order #: [id number] FUTURE COMP METABOLIC PANEL [SQCMP] Order #: [id number] FUTURE IRON + TIBC [SQIRON] Order #: [id number] FUTURE FERRITIN BLD [SQFERR] Order #: [id number] FUTURE CONSULT TO GASTROENTEROLOGY [9010] Order #: [id number]: 1 FUTURE CBC [SQCBC] Order #: [id number] FUTURE Follow-up and Disposition History Recorded Prescriptions as of 11/27/2019 Sig: POLY-IRON 150 FORTE 150 MG-25* TAKE 1 CAPSULE BY MOUTH TWICE* METFORMIN ER 1,000 MG 24 HR T* Take 1,000 mg by mouth daily * FUROSEMIDE 20 MG TABLET Take 20 mg by mouth twice malika* ESCITALOPRAM 20 MG TABLET Take 20 mg [...] by KALI KAT MD on 11/27/19 Normal [facility] Ferritinon 11-27-2019 Ferritin [Mass/Vol] 8.7 ng/mL Low 14.7-205.1 [facility] Comment on above: Performed By: #### F ERR #### [facility] [address] [place], [place] [address] Iron and TIBCon 11-27-2019 Iron [Mass/Vol] 533 ug/dL High 41-186 [facility] Comment on above: Performed By: #### I JAMES #### [facility] [address] [place], [place] [address] TIBC 774 ug/dL High 232-386 [facility] Comment on above: Performed By: #### I JAMES #### [facility] [address] [place], [place] [id number] Transferrin Saturatn 69 % High 15-57 [facility] Comment on above: Performed By: #### I JAMES #### [facility] [address] [place], [place] [address] PROGRESSon 11-27-2019 PROGRESS HNO ID: [id number] Author: Kali Spicer) Shey Service: ? Author Type: Physician Type: Progress Notes Filed: 11/27/2019 2:27 PM Note Text: PATIENT NAME: Corine Buckley [facility] NO.: [id number] ATTENDING PHYSICIAN: Kali Kat MD DATE OF SERVICE: November 27, 2019 This document has been created with the use of voice recognition technology. It may contain inaccuracies, misspellings, inaccurate syntax or inappropriate word context that escaped review. Dear Dr. TONNY LEI, [address] [address] thank you for referring Mrs. Corine Buckley [...] Outpatient Medications Medication Sig - Iron Polysacch [id number] (POLY-IRON 150 FORTE) 150-25-1 mg-mcg-mg cap TAKE [...] LEI, TANNER BURK [address] [facility] [phone] thank you for allowing me to participate in Mrs Corine Buckley care, if there are any questions or concerns please do not hesitate to contact me at the number below. Kali Kat M.D. Hematology/Medical Oncology [facility] [phone] CC: Xochilt Benedict, FINAL OPERATIONS TECHNICIAN-STEREO EQUIPMENT REPAIRER Tanner Alcantar MD Normal [facility] Reticulocyteon 11-27-2019 Abs Retic 0.082 M/uL Normal 0.0180-0.100 0 [facility] Retic% 2.1 % High 0.4-2.0 [facility] Vital Signs Date Time Vital Sign Value Performing Clinician Faci lity 01-15-2024 10:54-0500 Body height 167.6 cm Charanjit Wong MD Work Phone: [facility] 01-15-2024 10:54-0500 Body mass index (BMI) [Ratio] 27.45 kg/m2 Charanjit Wong MD Work Phone: [facility] 01-15-2024 10:54-0500 Body temperature 99.1 [degF] Charanjit Wong MD Work Phone: [facility] 01-15-2024 10:54-0500 Body weight 77.11 kg Charanjit Wong MD Work Phone: [facility] 01-15-2024 10:54-0500 Diastolic blood pressure 78 mm[Hg] Charanjit Wong MD Work Phone: [facility] 01-15-2024 10:54-0500 Heart rate 96 /min Charanjit Wong MD Work Phone: [facility] 01-15-2024 10:54-0500 SaO2% (BldA) [Mass fraction] 99 % Charanjit Wong MD Work Phone: [facility] 01-15-2024 10:54-0500 Systolic blood pressure 128 mm[Hg] Charanjit Wong MD Work Phone: [facility] Encounters Encounter Date Encounter Type Care Provider Facility Start: 04-23-2024 End: 04-23-2024 ambulatory [facility] Start: 04-21-2024 End: 04-21-2024 ambulatory SELMA JOSE Not Available Start: 04-07-2024 End: 04-07-2024 ambulatory SELMA JOSE Not Available Start: 01-16-2024 Refill Charanjit Wong MD [facility] Comment on above: Essential hypertensi on; Depression, unspecified depression type; Type 2 diabetes mellitus with hyperosmolarity without coma, without long-term current use of insulin ([facility]); Type 2 diabetes mellitus without complication, without long-term current use of insulin ([facility]); Mixed hyperlipidemia Start: 01-15-2024 End: 01-15-2024 ambulatory [facility] Start: 01-15-2024 End: 01-15-2024 Office outpatient visit 15 minutes hCaranjit Wong MD [facility] Phone[facility] Comment on above: Anasarca (Primary Dx ) Start: 12-11-2023 Refill Adysan Sleek CHIEF OF SERVICE [facility] Comment on above: Mixed hyperlipidemia Start: 03-02-2023 End: 03-02-2023 ambulatory Outreach Community Facility:[facility] Start: 03-02-2023 End: 03-02-2023 ambulatory [employer]CH[employer]-BC Xochilt Benedict Work Phone: [facility] Work Phone: Start: 03-02-2023 End: 03-02-2023 Departed Referred [employer]-BC Xochilt Benedict Work Phone: [facility] Work Phone: Start: 04-06-2020 End: 04-06-2020 Patient encounter procedure SELMA GARCIA Facility:[facility] Procedures Date Procedure Procedure Detail Performing Clinician Start: 12-12-2022 Mammography Adysan Sle ek CHIEF OF SERVICE Start: 11-27-2022 Adult depression scr eening assessment Adalycia Sleek CHIEF OF SERVICE Start: 01-08-2020 Colonoscopy Adysadeline Sle ek CHIEF OF SERVICE Plan of Treatment Date Care Activity Detail Author Start: 01-08-2030 Screening for malignant neoplasm of colon Colonoscopy [facility] Start: 12-27-2028 DTaP,Tdap and Td Vaccines (2 - Td or Tdap) DTaP,Tdap and Td Vaccines (2 - Td or Tdap) [facility] Start: 01-14-2025 Adult BMI Screening Adult BMI Screening [facility] Start: 01-14-2025 Tobacco Screening Tobacco Screening [facility] Start: 05-23-2024 Adult BMI Screening Adult BMI Screening [facility] Start: 05-23-2024 Tobacco Screening Tobacco Screening [facility] Start: 01-15-2024 End: 01-15-2024 Patient encounter procedure 01/15/2024 10:45 AM EST Office Visit [facility] [address] [place] [address] Charanjit Wong MD [address], [place] [address] [facility] Start: 12-12-2023 Screening for malignant neoplasm of breast Mammogram [facility] Start: 11-30-2023 Diabetic foot examination Diabetic Foot Exam [facility] Start: 11-27-2023 Depression Screening Depression Screening [facility] Start: 07-12-2023 COVID-19 Vaccine ( season) COVID-19 Vaccine ( season) [facility] Start: 07-12-2023 Influenza vaccination Influenza Vaccine [facility] Start: 2019 Administration of varicella zoster vaccine Zoster (Shingles) Vaccine (1 of 2) [facility] Start: 1990 Screening for malignant neoplasm of cervix Pap Smear [facility] Start: 1987 Adult BMI Follow Up Plan Adult BMI Follow Up Plan [facility] Start: 1970 Glaucoma screening Diabetic Ophthalmology Exam [facility] Immunizations Immunization Date Immunization Notes Care Provider Fa nancy 11-18-2019 influenza, injectabl e, quadrivalent, preservative free Adysan Sleek [facility] 11-18-2019 influenza virus vaccine, unspecified formulation Adysan Sleek [facility] 12-27-2018 tetanus toxoid, redu tom diphtheria toxoid, and acellular pertussis vaccine, adsorbed Adysan Sleek [facility] 09-22-2018 influenza, injectabl e, quadrivalent, preservative free Adysan Sleek [facility] NEGATED: Highlighted row has not occurred!04-24-2021 pneumococcal polysaccharide vaccine, 23 valent flexReceiptsan [employer] [facility] Comment on above: Deferred: Patient Re fused NEGATED: Highlighted row has not occurred!10-20-2020 influenza, injectable, quadrivalent, preservative free Adysan Sleek [facility] Comment on above: Deferred: Parental d ecision Payers Date Payer Category Payer Self-pay [id number] 2022 Unknown [employer] OUT OF STATE PPO/TRUST [id number] 2022-Present [phone] [address] [place] [address] [id number] 2022 Unknown [id number] 1970 Unknown [id number] 1970 Unknown [id number] 1970 Unknown [id number] 1970 Unknown [id number] 1970 Unknown [id number] 1960 Unknown [id number] Unknown [id number] Social History Date Type Detail Facility Tobacco smoking stat [facility] Unknown if ever smoked [facility] Work Phone: Start: 1970 Sex Assigned At Female F [facility] Start: 11-30-2022 Tobacco smoking stat [facility] Ex-smoker [facility] End: 04-06-1996 History of tobacco use Current smoker [facility] End: 04-06-1996 History of tobacco use Cigarette Smoker [facility] Start: 11-30-2022 Tobacco use and exposure Smoke less tobacco non-user [facility] Start: 05-23-2023 End: 01-15-2024 Alcohol intake Current drinker of alcohol (finding) [facility] Start: 11-27-2022 End: 05-23-[address] [facility] Start: 11-27-2022 End: 01-12-2024 Social connection and isolation panel [facility] Do you belong to any clubs or organizations such as gnosticist groups, unions, fraternal or athletic groups, or school groups? No [facility] Are you now , , , , never or living with a partner? [facility] How often to you hav e a drink containing alcohol? 2-[address] [facility] How many standard dr inks containing alcohol do you have on a typical day? [address] [facility] How often do you hav e 6 or more drinks on 1 occasion? Never [facility] How hard is it for y ou to pay for the very basics like food, housing, medical care, and heating Not hard at all [facility] Do you feel stress - tense, restless, nervous, or anxious, or unable to sleep at night because your mind is troubled all the time - these days [OSQ] Only a little [facility] Start: 04-21-2021 Education 15 [facility] Start: 11-03-2019 End: 11-30-2022 Tobacco Comment social [employer] Start: 1970 Sex Assigned At Not on file P [employer] [facility] Procedure Code Equipment Code Equipment Origin al Text Equipment Identifier Dates Hd Fem 36mm Opt Shl Actb G7 Bl Rpl [id number] - [id number] Start: 04-14-2020 Slv Fem Opt -3mm Tpr Hip Blx D - [id number] - [id number] Start: 10-25-2020 Goals Date Patient Goal [...] from the original note were not included. [address] [place] [id number] Patient: Corine Buckley Date of : [...] future. CHARANJIT WONG MD Family Medicine Physician [facility] Family Medicine / [facility] 01/15/24 This note was completed with voice recognition software. The document was reviewed for errors however some may still be present. Please do not hesitate to contact/[facility] the author to verify any questions/concerns. documented in this encounter [facility] Evaluation note Note Date & Type Note Facility Evaluation note No assessment information [facility] Work Phone: Evaluation note Note Date & Type Note Facility Evaluation note Diagnosis Mixed hyperlipidemia documented in this encounter [facility] Evaluation note Note Date & Type Note Facility Evaluation note Diagnosis Anasarca- Primary Edema documented in this encounter [facility] Evaluation note Note Date & Type Note Facility Evaluation note Diagnosis Essential hypertension Unspecified essential hypertension Depression, unspecified depression type Type 2 diabetes mellitus with hyperosmolarity without coma, without long-term current use of insulin ([facility]) Type 2 diabetes mellitus without complication, without long-term current use of insulin ([facility]) Mixed hyperlipidemia documented in this encounter [facility] Instructions Note Date & Type Note Facility Instructions Not on filedocumented in this en counter [facility] Instructions Note Date & Type Note Facility Instructions Not on filedocumented in this en counter [facility] Summary Purpose Family History No [...] section and content) DATE CREATED AUTHOR 12/04/2019 [facility] DATE CREATED AUTHOR AUTHOR'S ORGANIZ ATION 04/09/2020 [facility] DATE CREATED AUTHOR AUTHOR'S ORGANIZ ATION 03/03/2023 [facility] DATE CREATED AUTHOR AUTHOR'S ORGANIZ ATION 04/21/2024 [facility] DATE CREATED AUTHOR AUTHOR'S ORGANIZ ATION 04/25/2024 [facility] Care Teams (unrecognized sec tion and content) Team Status: Active Member Role Status D[facility] Active Team Status: Inactive Member Role Status Dates [facility] Active Outreach Community Attending Provider Active Roll Tube Setter Relationship Specialty Start Date End Date Charanjit Wong MD [address] [place] [address] PCP - General Internal Medicine 05/11/23 Roll Tube Setter Relationship Specialty Start Date End Date Charanjit Wong MD [address] [place] [address] PCP - General Internal Medicine 05/11/23 Goals [...] BE BASED ON THE PRIMARY CLINICAL RECORDS. [employer] provides no warranty or guarantee of the accuracy or completeness of information in this document.
[2024-05-07 10:13] LABS: Basophils Absolute Auto 0.1 10^3/uL (0.0-0.1); Basophils Percent Auto 1.2 % (0.2-2.0); Eosinophils Absolute Auto 0.2 10^3/uL (0.0-0.7); Eosinophils Percent Auto 4.2 % (0.9-7.0); Hematocrit 40.4 % (36.0-48.0); Hemoglobin 13.5 g/dL (12.0-16.0); Immature Granulocytes Abs Auto 0.02 10^3/uL (0.00-0.03); Immature Granulocytes Pct Auto 0.4 % (0.0-0.5); Lymphocytes Absolute Auto 1.9 10^3/uL (1.2-3.8); Lymphocytes Percent Auto 33.3 % (20.5-60.0); Mean Corpuscular HGB Conc 33.4 g/dL (29.9-35.2); Mean Corpuscular Hemoglobin 28.3 pg (26.7-34.0); Mean Corpuscular Volume 84.7 fL (81.0-99.0); Mean Platelet Volume 8.7 fL (9.5-13.5); Monocytes Absolute Auto 0.4 10^3/uL (0.3-0.8); Monocytes Percent Auto 7.1 % (1.7-12.0); Neutrophils Percent Auto 53.8 % (43.0-75.0); Platelet Count 342 10^3/uL (150-450); Red Blood Count 4.77 10^6/uL (4.20-5.40); Red Cell Distribution Width 12.3 % (11.0-15.0); White Blood Count 5.7 10^3/uL (4.0-11.0)
[2024-05-07 11:10] LABS: Anion Gap 13.2; BUN Creatinine Ratio 13.9; Calcium 8.8 mg/dL (8.5-10.1); Carbon Dioxide 27.7 mmol/L (21.0-32.0); Chloride 101 mmol/L (98-107); Estimated GFR (African America >60 (>=60); Estimated GFR (Non-African Ame >60 (>=60); Glucose 160 mg/dL (74-106); Potassium 3.9 mmol/L (3.5-5.1); Sodium 138 mmol/L (136-145)
== END 2024-05-07 09:10 | disposition home or self-care (01) ==
LOC: PST 09:10
PROVIDERS: Visit Provider Obstetrics & Gynecology
DX: Z01.810 Encounter for preprocedural cardiovascular examination (principal); Z01.812 Encounter for preprocedural laboratory examination; N83.299 Other ovarian cyst, unspecified side; R10.2 Pelvic and perineal pain; N95.0 Postmenopausal bleeding
CPT/HCPCS: 80048; 85025; 93005

== ENCOUNTER 2024-05-15 09:54 | Day surgery (SDC) | payer BC, SELFPAY ==
[2024-05-07 09:18] VITALS: BP 142/86; PULSE 73; TEMP 36.3; O2SAT 97; BMI 27.5
[2024-05-15] VITALS (13 sets, daily range): BP systolic 116–164; BP diastolic 68–97; PULSE 77–92; TEMP 36.3–36.6; O2SAT 89–96; BMI 27.5
--- OUTSIDE RECORDS SUMMARY | 2024-05-15 09:58 | XMS_ITS | CCD ---
Author Organization [facility] CliniSyma Care Team Providers Care Milk Sampler Name Role Phone SELMA GARCIA Admitting Unavailable SELMA GARCIA Attending Unavailable SELMA GARCIA Consulting Unavailable AUGUSTIN Benedict-BAO Mathis Primary Care Provider Community, Outreach Attending Provider Community, Outreach Admitting Unavailable Community, Outreach Attending Unavailable Xochilt Benedict Primary Care Unavailable JasbirCharanjit kwong MD Primary Care Provider SELMA GARCIA Attending Unavailable SELMA GARCIA Attending [...] coma, without long-term current use of insulin ([facility]) , Type 2 diabetes mellitus without complication, without long-term current use of insulin ([facility]) TAKE 1 TABLET TWICE A DAY WITH [...] tablet by mouth once daily Iron Ps Ehsadow-[id number]-[id number] Acid Discontinued 1 TAB PO Daily January [...] 03-02-2023 ALT [Catalytic activity/Vol] 28 U/L 7-52 [facility] Albumin [Mass/volume] in Ser um or Plasma by Bromocresol green (BCG) dye binding methoOrdered By: OUTREACH COMMUNITY on 03-02-2023 Albumin BCG dye [Mass/Vol] 4.5 g/dL 3.5-5.7 [facility] Alkaline phosphatase [Enzyma tic activity/volume] in Serum or PlasmaOrdered By: OUTREACH COMMUNITY on 03-02-2023 ALP [Catalytic activity/Vol] 76 U/L 34-104 [facility] Aspartate aminotransferase [ Enzymatic activity/volume] in Serum or PlasmaOrdered By: OUTREACH COMMUNITY on 03-02-2023 AST [Catalytic activity/Vol] 17 U/L 13-39 [facility] Bilirubin.total [Mass/volume ] in Serum or PlasmaOrdered By: OUTREACH COMMUNITY on 03-02-2023 Bilirubin [Mass/Vol] 0.8 mg/dL 0.3-1.0 [facility] CBC Without Differentialon 0 03-02-2023 Erythrocyte distribution width (RBC) [Ratio] 13.0 % Normal 11.9-15.3 [facility] Comment on above: Performed By: #### C BCNOOUTREACH, OUTREACH GLYCO, OUTREACH CMP, OUTREACH LIPID, OUTREACH TSH, OUTREACH VITD #### [facility] [address] [place] [address] Hematocrit (Bld) [Volume fraction] 42.7 % Normal 34.0-46.4 [facility] Comment on above: Performed By: #### C BCNOOUTREACH, OUTREACH GLYCO, OUTREACH CMP, OUTREACH LIPID, OUTREACH TSH, OUTREACH VITD #### [address] Hemoglobin (Bld) [Mass/Vol] 14.7 g/dL Normal 11.8-15.4 [facility] Comment on above: Performed By: #### C BCNOOUTREACH, OUTREACH GLYCO, OUTREACH CMP, OUTREACH LIPID, OUTREACH TSH, OUTREACH VITD #### [address] MCH (RBC) [Entitic mass] 28.9 pg Normal 24.7-34.3 [facility] Comment on above: Performed By: #### C BCNOOUTREACH, OUTREACH GLYCO, OUTREACH CMP, OUTREACH LIPID, OUTREACH TSH, OUTREACH VITD #### [facility] [address] [place] [address] MCV (RBC) [Entitic vol] 84.2 fL Normal 80-[address] [facility] Comment on above: Performed By: #### C BCNOOUTREACH, OUTREACH GLYCO, OUTREACH CMP, OUTREACH LIPID, OUTREACH TSH, OUTREACH VITD #### [address] Mean Corpuscular HGB Conc 34.3 g/dL Normal 32.0-35.0 [facility] Comment on above: Performed By: #### C BCNOOUTREACH, OUTREACH GLYCO, OUTREACH CMP, OUTREACH LIPID, OUTREACH TSH, OUTREACH VITD #### [address] Platelet mean volume (Bld) [Entitic vol] 7.1 fL Normal 6.3-10.7 [facility] Comment on above: Result Comment: PERF ORMED BY: [place] [address] PATHOLOGIST HAND TAPPER MARY ALICE MUNOZ M.D. Performed By: #### C BCNOOUTREACH, OUTREACH GLYCO, OUTREACH CMP, OUTREACH LIPID, OUTREACH TSH, OUTREACH VITD #### [facility] [address] [place] [address] Platelets (Bld) [#/Vol] 375 10*3/uL Normal 150-450 [facility] Comment on above: Performed By: #### C BCNOOUTREACH, OUTREACH GLYCO, OUTREACH CMP, OUTREACH LIPID, OUTREACH TSH, OUTREACH VITD #### [address] RBC (Bld) [#/Vol] 5.07 10*6/uL High 3.60-5.00 [facility] Comment on above: Performed By: #### C BCNOOUTREACH, OUTREACH GLYCO, OUTREACH CMP, OUTREACH LIPID, OUTREACH TSH, OUTREACH VITD #### [address] WBC (Bld) [#/Vol] 5.8 10*3/uL Normal 3.8-11.6 [facility] Comment on above: Performed By: #### C BCNOOUTREACH, OUTREACH GLYCO, OUTREACH CMP, OUTREACH LIPID, OUTREACH TSH, OUTREACH VITD #### [facility] [address] [place] [address] CMP Outreachon 03-02-2023 Albumin [Mass/Vol] 4.5 g/dL Normal 3.5-5.7 [facility] Comment on above: Performed By: #### C BCNOOUTREACH, OUTREACH GLYCO, OUTREACH CMP, OUTREACH LIPID, OUTREACH TSH, OUTREACH VITD #### [address] ALP [Catalytic activity/Vol] 76 U/L Normal 34-104 [facility] Comment on above: Performed By: #### C BCNOOUTREACH, OUTREACH GLYCO, OUTREACH CMP, OUTREACH LIPID, OUTREACH TSH, OUTREACH VITD #### [address] [place] [address] [place] ALT [Catalytic activity/Vol] 28 U/L Normal 7-52 [facility] Comment on above: Performed By: #### C BCNOOUTREACH, OUTREACH GLYCO, OUTREACH CMP, OUTREACH LIPID, OUTREACH TSH, OUTREACH VITD #### [facility] [address] [id number] [place] Anion gap [Moles/Vol] 12.5 mmol/L Normal 6.0-15.0 [facility] Comment on above: Performed By: #### C BCNOOUTREACH, OUTREACH GLYCO, OUTREACH CMP, OUTREACH LIPID, OUTREACH TSH, OUTREACH VITD #### [facility] [address] [id number] [place] AST [Catalytic activity/Vol] 17 U/L Normal 13-39 [facility] Comment on above: Performed By: #### C BCNOOUTREACH, OUTREACH GLYCO, OUTREACH CMP, OUTREACH LIPID, OUTREACH TSH, OUTREACH VITD #### [facility] [address] [id number] [place] Bilirubin [Mass/Vol] 0.8 mg/dL Normal 0.3-1.0 [facility] Comment on above: Performed By: #### C BCNOOUTREACH, OUTREACH GLYCO, OUTREACH CMP, OUTREACH LIPID, OUTREACH TSH, OUTREACH VITD #### [facility] [address] [id number] [place] Calcium [Mass/Vol] 9.1 mg/dL Normal 8.6-10.3 [facility] Comment on above: Performed By: #### C BCNOOUTREACH, OUTREACH GLYCO, OUTREACH CMP, OUTREACH LIPID, OUTREACH TSH, OUTREACH VITD #### [facility] [address] [place] [address] [place] Chloride [Moles/Vol] 102 mmol/L Normal 98-107 [facility] Comment on above: Performed By: #### C BCNOOUTREACH, OUTREACH GLYCO, OUTREACH CMP, OUTREACH LIPID, OUTREACH TSH, OUTREACH VITD #### [facility] [address] [id number] [place] CO2 [Moles/Vol] 25.8 mmol/L Normal 21.0-31.0 [facility] Comment on above: Performed By: #### C BCNOOUTREACH, OUTREACH GLYCO, OUTREACH CMP, OUTREACH LIPID, OUTREACH TSH, OUTREACH VITD #### [facility] [address] Creatinine [Mass/Vol] 0.63 mg/dL Normal 0.60-1.20 [facility] Comment on above: Performed By: #### C BCNOOUTREACH, OUTREACH GLYCO, OUTREACH CMP, OUTREACH LIPID, OUTREACH TSH, OUTREACH VITD #### [facility] [address] [place] [address] [place] GFR/1.73 sq M.predicted MDRD (S/P/Bld) [Vol rate/Area] mL/min/{1.73_m2} Normal [facility] Comment on above: Performed By: #### C BCNOOUTREACH, OUTREACH GLYCO, OUTREACH CMP, OUTREACH LIPID, OUTREACH TSH, OUTREACH VITD #### [facility] [address] [place] [address] Glucose [Mass/Vol] 157 mg/dL High 70-100 [facility] Comment on above: Result Comment: [facility] Glucose Reference Range is dependent on time and content of last meal. Glucose of more than 200 mg/dL in a nonstressed, ambulatory subject supports the diagnosis of Diabetes Mellitus. ADA recommended reference range Performed By: #### C BCNOOUTREACH, OUTREACH GLYCO, OUTREACH CMP, OUTREACH LIPID, OUTREACH TSH, OUTREACH VITD #### [facility] [address] [place] [address] [place] Potassium [Moles/Vol] 4.3 mmol/L Normal 3.5-5.1 [facility] Comment on above: Performed By: #### C BCNOOUTREACH, OUTREACH GLYCO, OUTREACH CMP, OUTREACH LIPID, OUTREACH TSH, OUTREACH VITD #### [place] [address] [place] Protein [Mass/Vol] 6.8 g/dL Normal 6.4-8.9 [facility] Comment on above: Performed By: #### C BCNOOUTREACH, OUTREACH GLYCO, OUTREACH CMP, OUTREACH LIPID, OUTREACH TSH, OUTREACH VITD #### [facility] [address] [place] [address] [place] Sodium [Moles/Vol] 136 mmol/L Normal 136-145 [facility] Comment on above: Performed By: #### C BCNOOUTREACH, OUTREACH GLYCO, OUTREACH CMP, OUTREACH LIPID, OUTREACH TSH, OUTREACH VITD #### [facility] [address] [id number] [place] Urea nitrogen [Mass/Vol] 21 mg/dL Normal 7-25 [facility] Comment on above: Performed By: #### C BCNOOUTREACH, OUTREACH GLYCO, OUTREACH CMP, OUTREACH LIPID, OUTREACH TSH, OUTREACH VITD #### [facility] [address] [id number] [place] Calcium [Mass/volume] in Ser um or PlasmaOrdered By: OUTREACH COMMUNITY on 03-02-2023 Calcium [Mass/Vol] 9.1 mg/dL 8.6-10.3 [facility] Carbon dioxide, total [Moles /volume] in Serum or PlasmaOrdered By: OUTREACH COMMUNITY on 03-02-2023 CO2 [Moles/Vol] 25.8 mmol/L 21.0-31.0 [facility] Chloride [Moles/volume] in S aleena or PlasmaOrdered By: OUTREACH COMMUNITY on 03-02-2023 Chloride [Moles/Vol] 102 mmol/L 98-107 [facility] Cholesterol [Mass/volume] in Serum or PlasmaOrdered By: OUTREACH COMMUNITY on 03-02-2023 Cholesterol [Mass/Vol] 162 mg/dL 140-200 [facility] Comment on above: Chol less than 200 m g/dl low riskChol 201-239 mg/dl borderline riskChol 240 mg/dl and greater high risk Cholesterol in LDL Calc [Mas s/Vol]Ordered By: OUTREACH COMMUNITY on 03-02-2023 Cholesterol in LDL [Mass/Vol] 100 mg/dL 0-100 [facility] Comment on above: LDL ATP III CLASSIFI CATIONLDL less than 100 mg/dL OptimalLDL 100-129 mg/dL Near or above optimalLDL 130-159 mg/dL Borderline highLDL 160-189 mg/dL HighLDL greater than 189 mg/dL Very high Cholesterol in VLDL Calc [Ma ss/Vol]Ordered By: [facility] on 03-02-2023 Cholesterol in VLDL [Mass/Vol] 23 mg/dL [facility] Creatinine [Mass/volume] in Serum or PlasmaOrdered By: [facility] on 03-02-2023 Creatinine [Mass/Vol] 0.63 mg/dL 0.60-1.20 [facility] Erythrocyte distribution wid th Auto (RBC) [Ratio]Ordered By: [facility] on 03-02-2023 Erythrocyte distribution width (RBC) [Ratio] 13.0 % 11.9-15.3 [facility] Glucose [Mass/volume] in Ser um or PlasmaOrdered By: [facility] on 03-02-2023 Glucose [Mass/Vol] 157 mg/dL 70-100 [facility] Comment on above: ADA recommended refe rence rangeRandom Glucose Reference Range is dependent on time and content of last meal. Glucose of more than 200 mg/dL in a nonstressed, ambulatory subject supports the diagnosis of Diabetes Mellitus. Glucose mean value [Mass/vol ume] in Blood Estimated from glycated hemoglobinOrdered By: [facility] on 03-02-2023 Average glucose Estimated from glycated hemoglobin (Bld) [Mass/Vol] 160 mg/dL [facility] Hematocrit Auto (Bld) [Volum e fraction]Ordered By: [facility] on 03-02-2023 Hematocrit (Bld) [Volume fraction] 42.7 % 34.0-46.4 [facility] Hemoglobin [Mass/volume] in BloodOrdered By: [facility] on 03-02-2023 Hemoglobin (Bld) [Mass/Vol] 14.7 g/dL 11.8-15.4 [facility] Laboratory - Hematology and Cell countsOrdered By: [facility] on 03-02-2023 HbA1c (Bld) [Mass fraction] 7.2 % 4.3-5.6 [facility] Comment on above: Increased risk for d iabetes: 5.7 - 6.4diabetes: >6.4glycemic control for adults with diabetes: <7.0 Leukocytes [#/volume] correc chuy for nucleated erythrocytes in Blood by Automated counOrdered By: [facility] on 03-02-2023 WBC corrected for nucl RBC Auto (Bld) [#/Vol] 5.8 10*3/uL 3.8-11.6 [facility] Lipid Profile Outreachon Cholesterol [Mass/Vol] 162 mg/dL Normal 140-200 [facility] Comment on above: Result Comment: Chol less than 200 mg/dl low risk Chol 201-239 mg/dl borderline risk Chol 240 mg/dl and greater high risk Performed By: #### C BCNOOUTREACH, OUTREACH GLYCO, OUTREACH CMP, OUTREACH LIPID, OUTREACH TSH, OUTREACH VITD #### [facility] [address] [place] [address] [place] Cholesterol in HDL [Mass/Vol] 39 mg/dL Normal 35-85 [facility] Comment on above: Result Comment: HDL CHOL ATP-III CLASSIFICATION Cardiovascular Risk HDL > or equal to 60 mg/dL LOW HDL < 40 mg/dL HIGH Performed By: #### C BCNOOUTREACH, OUTREACH GLYCO, OUTREACH CMP, OUTREACH LIPID, OUTREACH TSH, OUTREACH VITD #### [facility] [address] Cholesterol.total/Choles terol in HDL [Mass ratio] 4.2 {ratio} Normal <5.0 [facility] Comment on above: Performed By: #### C BCNOOUTREACH, OUTREACH GLYCO, OUTREACH CMP, OUTREACH LIPID, OUTREACH TSH, OUTREACH VITD #### [facility] [address] [id number] [facility] LDL Cholesterol,Calculated 100 mg/dL Normal 0-100 [facility] Comment on above: Result Comment: LDL ATP III CLASSIFICATION LDL less than 100 mg/dL Optimal LDL 100-129 mg/dL Near or above optimal LDL 130-159 mg/dL Borderline high LDL 160-189 mg/dL High LDL greater than 189 mg/dL Very high Performed By: #### C BCNOOUTREACH, OUTREACH GLYCO, OUTREACH CMP, OUTREACH LIPID, OUTREACH TSH, OUTREACH VITD #### [facility] [address] [id number] [place] Triglyceride w/Reflex 116 mg/dL Normal 0-149 [facility] Comment on above: Result Comment: TRIG ATP III CLASSIFICATION TRIG less than 150 mg/dL Normal TRIG 150-199 mg/dL Borderline high TRIG 200-500 mg/dL High TRIG greater than 500 mg/dL Very high Standard traceable to the Center for Disease Conrtrol and Prevention (CDC) test method. Performed By: #### C BCNOOUTREACH, OUTREACH GLYCO, OUTREACH CMP, OUTREACH LIPID, OUTREACH TSH, OUTREACH VITD #### [facility] [address] VLDL CHOLESTEROL 23 mg/dL Normal [facility] Comment on above: Performed By: #### C BCNOOUTREACH, OUTREACH GLYCO, OUTREACH CMP, OUTREACH LIPID, OUTREACH TSH, OUTREACH VITD #### [facility] [address] MCH Auto (RBC) [Entitic mass ]Ordered By: OUTREACH COMMUNITY on 03-02-2023 MCH (RBC) [Entitic mass] 28.9 pg 24.7-34.3 [facility] MCHC Auto (RBC) [Mass/Vol]Or dered By: OUTREACH COMMUNITY on 03-02-2023 MCHC (RBC) [Mass/Vol] 34.3 g/dL 32.0-35.0 [facility] MCV Auto (RBC) [Entitic vol] Ordered By: OUTREACH COMMUNITY on 03-02-2023 MCV (RBC) [Entitic vol] 84.2 fL 80-[address] [facility] No Panel InformationOrdered By: OUTREACH COMMUNITY on 03-02-2023 Estimated GFR (CKD-EPI) > 60.0 mL/Min [facility] Creatinine Clearance (Chem N/A [facility] Outreach Glycoon 03-02-2023 Glucose [Mass/Vol] 160 mg/dL Normal [facility] Comment on above: Result Comment: PERF ORMED BY: [place] [address] PATHOLOGIST HAND TAPPER MARY ALICE MUNOZ M.D. Performed By: #### C BCNOOUTREACH, OUTREACH GLYCO, OUTREACH CMP, OUTREACH LIPID, OUTREACH TSH, OUTREACH VITD #### [facility] [address] HbA1c (Bld) [Mass fraction] 7.2 % High 4.3-5.6 [facility] Comment on above: Result Comment: Incr eased risk for diabetes: 5.7 - 6.4 diabetes: >6.4 glycemic control for adults with diabetes: <7.0 Performed By: #### C BCNOOUTREACH, OUTREACH GLYCO, OUTREACH CMP, OUTREACH LIPID, OUTREACH TSH, OUTREACH VITD #### [facility] [address] [id number] [facility] Outreach VitD 25on 3 Outreach VitD 25 31.8 ng/mL Normal 30-100 [facility] Comment on above: Result Comment: JAZMÍN MIN D STATUS 25(OH)VITAMIN D RANGE (ng/mL) Deficient <20 Insufficient 20 to <30 Sufficient 30 to 100 Reference: Henna MF,Brina SPRAGUE, Eric FERRARO, et al. Evaluation,treatment, and prevention of vitamin D deficiency; an Endocrine Society clinical practice guideline. JCEM. 2010; 96(7):1911-30. PERFORMED BY: [place] [address] PATHOLOGIST HAND TAPPER MARY ALICE MUNOZ M.D. Performed By: #### C BCNOOUTREACH, OUTREACH GLYCO, OUTREACH CMP, OUTREACH LIPID, OUTREACH TSH, OUTREACH VITD #### [facility] [address] [id number] [facility] Platelet mean volume Auto (B ld) [Entitic vol]Ordered By: [facility] on 03-02-2023 Platelet mean volume (Bld) [Entitic vol] 7.1 fL 6.3-10.7 [facility] Platelets Auto (Bld) [#/Vol] Ordered By: [facility] on 03-02-2023 Platelets (Bld) [#/Vol] 375 10*3/uL 150-450 [facility] Potassium [Moles/volume] in Serum or PlasmaOrdered By: [facility] on 03-02-2023 Potassium [Moles/Vol] 4.3 mmol/L 3.5-5.1 [facility] Protein [Mass/volume] in Ser um or PlasmaOrdered By: [facility] on 03-02-2023 Protein [Mass/Vol] 6.8 g/dL 6.4-8.9 [facility] RBC Auto (Bld) [#/Vol]Ordere d By: OUTREACH COMMUNITY on 03-02-2023 RBC (Bld) [#/Vol] 5.07 10*6/uL 3.60-5.00 [facility] Serum or plasma anion gap de terminationOrdered By: OUTREACH COMMUNITY on 03-02-2023 Anion gap [Moles/Vol] 12.5 mmol/L 6.0-15.0 [facility] Serum or plasma high density lipoprotein (HDL) cholesterol measurementOrdered By: OUTREACH COMMUNITY on 03-02-2023 Cholesterol in HDL [Mass/Vol] 39 mg/dL 35-85 [facility] Comment on above: HDL CHOL ATP-III CLA SSIFICATION Cardiovascular RiskHDL > or equal to 60 mg/dL LOWHDL < 40 mg/dL HIGH Serum or plasma total choles terol/high density lipoprotein (HDL) cholesterol mass ratOrdered By: OUTREACH COMMUNITY on 03-02-2023 Cholesterol.total/Choles terol in HDL [Mass ratio] 4.2 {ratio} <5.0 [facility] Sodium [Moles/volume] in Ser um or PlasmaOrdered By: OUTREACH COMMUNITY on 03-02-2023 Sodium [Moles/Vol] 136 mmol/L 136-145 [facility] Thyroid Stimulating Hormoneo n 03-02-2023 TSH Qn 1.52 m[IU]/L Normal 0.45-5.33 [facility] Comment on above: Performed By: #### C BCNOOUTREACH, OUTREACH GLYCO, OUTREACH CMP, OUTREACH LIPID, OUTREACH TSH, OUTREACH VITD #### [facility] [address] Thyrotropin [Units/volume] i n Serum or PlasmaOrdered By: OUTREACH COMMUNITY on 03-02-2023 TSH Qn 1.52 m[IU]/L 0.45-5.33 [facility] Triglyceride [Mass/volume] i n Serum or PlasmaOrdered By: OUTREACH COMMUNITY on 03-02-2023 Triglyceride [Mass/Vol] 116 mg/dL 0-[address] [facility] Comment on above: TRIG ATP III CLASSIF ICATIONTRIG less than 150 mg/dL NormalTRIG 150-199 mg/dL Borderline highTRIG 200-500 mg/dL High TRIG greater than 500 mg/dL Very highStandard traceable to the Center for Disease Conrtrol and Prevention (CDC) test method. Urea nitrogen [Mass/volume] in Serum or PlasmaOrdered By: OUTREACH COMMUNITY on 03-02-2023 Urea nitrogen [Mass/Vol] 21 mg/dL 7-25 [facility] Vitamin D+Metabolites [Mass/ volume] in Serum or PlasmaOrdered By: OUTREACH COMMUNITY on 03-02-2023 Vitamin D+Metabolites [Mass/Vol] 31.8 ng/mL 30-100 [facility] Comment on above: VITAMIN D STATUS 25( [place])VITAMIN D RANGE (ng/mL) Deficient <20 Insufficient 20 to <30Sufficient 30 to 100Reference: Henna MF,Brina SPRAGUE, Eric FERRARO, et al. Evaluation,treatment, and prevention of vitamin D deficiency; an Endocrine Society clinical practice guideline. JCEM. 2010; 96(7):1911-30. PAP ACOG PANEL 2: 30 to 65on 04-09-2020 Age Gdln ACOG Testing 30-65 Normal [facility] Comment on above: Performed By: #### [id number] #### [facility] [address] [address] Malena Mariano DIAGNOSIS: Comment Normal [facility] Comment on above: Result Comment: NEGA TIVE FOR INTRAEPITHELIAL LESION OR MALIGNANCY. Performed at: WB Performed By: #### [id number] #### [facility] [address] [address] Malena Mariano HPV Aptima Negative Normal Negative [facility] Comment on above: Result Comment: This test was developed and its performance characteristics determined by [employer]. It has not been cleared or approved by the Food and Drug Administration. This nucleic acid amplification test detects fourteen high-risk HPV types (16,18,31,33,35,39,45,51,52,56,58,59,66,68) without differentiation. Performed at: =G Performed By: #### [id number] #### [facility] [address] [id number] Malena Mariano Methodology: Comment Normal [facility] Comment on above: Result Comment: This liquid based SurePath(R) pap test was screened with the assistance of an image guided system. Performed at: WB Performed By: #### [id number] #### [facility] [address] [place] [address] Malena Mariano Note: Comment Normal [facility] Comment on above: Result Comment: The Pap smear is a screening test designed to aid in the detection of premalignant and malignant conditions of the uterine cervix. It is not a diagnostic procedure and should not be used as the sole means of detecting cervical cancer. Both false-positive and false-negative reports do occur. . Performed at: WB Performed By: #### [id number] #### [facility] [address] [place] [address] Malena Mariano Performed by: Comment Normal [facility] Comment on above: Result Comment: Arianne Figueredo Oven Technician (ASCP) Performed at: WB Performed By: #### [id number] #### [facility] [address] [place] [address] Malena Mariano Specimen adequacy: Comment Normal [facility] Comment on above: Result Comment: Sati sfactory for evaluation. No endocervical cells are present. This is consistent with a history of hysterectomy. Performed at: WB Performed By: #### [id number] #### [facility] [address] [place] [address] Malena Mariano . . Normal [facility] Comment on above: Result Comment: Perf ormed at: WB Performed By: #### [id number] #### [facility] [address] [place] [address] Malena Mariano CBCon 12-04-2019 Absolute nRBC <0.01 Normal <0.01 [facility] Erythrocyte distribution width (RBC) [Ratio] 27.7 % High 11.5-15.0 [facility] Hematocrit (Bld) [Volume fraction] 33.6 % Low 36.0-46.0 [facility] Hemoglobin (Bld) [Mass/Vol] 9.4 g/dL Low 11.5-15.5 [facility] MCH (RBC) [Entitic mass] 20.0 pG Low 26.0-34.0 [facility] MCHC (RBC) [Mass/Vol] 28.0 g/dL Low 30.5-36.0 [facility] MCV (RBC) [Entitic vol] 71.5 fL Low 80.0-100.0 [facility] Platelet mean volume (Bld) [Entitic vol] 8.8 fL Low 9.0-12.7 [facility] Platelets (Bld) [#/Vol] 477 10*3/uL High 150-400 [facility] RBC (Bld) [#/Vol] 4.70 10*6/uL Normal 3.90-5.20 [facility] WBC (Bld) [#/Vol] 5.46 10*3/uL Normal 3.70-11.00 [facility] CNOVSPon 11-27-2019 CNOVSP Visit (SP) Office (HEMASA) CORINE BUCKLEY ([id number]) 1970 F Date Time Provider Department 11/27/19 1:00 PM KALI KAT) HEMASA During your visit today, we recorded the following information about you: Temperature Pulse Respiration Blood pressure 97.8 degrees 93/minute 18/minute 149/72 Weight Height Last Period 75.4 kg 1.66 m 11/24/19 Kali Kat MD 11/27/2019 2:27 PM Signed PATIENT NAME: Corine Buckley [facility] NO.: [id number] ATTENDING PHYSICIAN: Kali Kat MD DATE OF SERVICE: November 27, 2019 This document has been created with the use of voice recognition technology. It may contain inaccuracies, misspellings, inaccurate syntax or inappropriate word context that escaped review. Dear Dr. TONNY LEI, [address] [address] thank you for referring Mrs. Corine Buckley [...] Outpatient Medications Medication Sig - Iron Polysacch [id number]-V27-TT (POLY-IRON 150 FORTE) 150-25-1 mg-mcg-mg cap TAKE [...] as well. Dear TANNER Melgar JR [address] [place] [phone] thank you for allowing me to participate in Mrs Corine Buckley care, if there are any questions or concerns please do not hesitate to contact me at the number below. Kali Kat M.D. Hematology/Medical Oncology [facility] [phone] CC: Xochilt Benedict APRN-NURSING ASSOCIATE MD Kali Marcelo MD 11/27/2019 3:51 PM Signed Addended by: KALI KAT MD on: 11/27/2019 03:51 PM Modules accepted: Orders Referring Provider: TANNER ALCANTAR JR [[id number]] Allergies As of Date: 11/27/2019 (No Known Allergies) Date Reviewed: 11/27/2019 Reviewed by: Kali Spicer) Shey - Fully Assessed Reason for Visit: Anemia [6] Cmt: new patient consult Primary Visit Diagnosis:Iron deficiency anemia due to chronic blood loss [D50.0] Order(s):IRON + TIBC [SQIRON] Order #: [id number] FUTURE FERRITIN BLD [SQFERR] Order #: [id number] FUTURE RETIC COUNT [SQRETIC] Order #: [id number] FUTURE CBC + DIFF (FOR REMOTE [facility] USE) [SQRCBCDF] Order #: [id number] FUTURE COMP METABOLIC PANEL [SQCMP] Order #: [id number] FUTURE IRON + TIBC [SQIRON] Order #: [id number] FUTURE FERRITIN BLD [SQFERR] Order #: [id number] FUTURE CONSULT TO GASTROENTEROLOGY [9010] Order #: [id number]: 1 FUTURE CBC [SQCBC] Order #: [id number] FUTURE Follow-up and Disposition History Recorded Prescriptions [...] by KALI KAT MD on 11/27/19 Normal [facility] Ferritinon 11-27-2019 Ferritin [Mass/Vol] 8.7 ng/mL Low 14.7-205.1 [facility] Comment on above: Performed By: #### F ERR #### [facility] [employer] [address] [place], [place] [address] Iron and TIBCon 11-27-2019 Iron [Mass/Vol] 533 ug/dL High 41-186 [facility] Comment on above: Performed By: #### I JAMES #### [facility] [employer] [address] [place], [place] [address] TIBC 774 ug/dL High 232-386 [facility] Comment on above: Performed By: #### I JAMES #### [facility] [address] [place], [place] [id number] Transferrin Saturatn 69 % High 15-57 [facility] Comment on above: Performed By: #### I JAMES #### [facility] [address] [place], [place] [address] PROGRESSon 11-27-2019 PROGRESS HNO ID: [id number] Author: Kali Spicer) Shey Service: ? Author Type: Physician Type: Progress Notes Filed: 11/27/2019 2:27 PM Note Text: PATIENT NAME: Corine Buckley [facility] NO.: [id number] ATTENDING PHYSICIAN: Kali Kat MD DATE OF SERVICE: November 27, 2019 This document has been created with the use of voice recognition technology. It may contain inaccuracies, misspellings, inaccurate syntax or inappropriate word context that escaped review. Dear Dr. TONNY LEI, [address] [address] thank you for referring Mrs. Corine Buckley [...] Outpatient Medications Medication Sig - Iron Polysacch [id number]-X50-[id number] (POLY-IRON 150 FORTE) 150-25-1 mg-mcg-mg cap TAKE [...] Dear Dr. TONNY LEI, TANNER BURK [address] [facility] [address] thank you for allowing me to participate in Mrs Corine Buckley care, if there are any questions or concerns please do not hesitate to contact me at the number below. Kali Kat M.D. Hematology/Medical Oncology [facility] [phone] CC: Xochilt Benedict, FASHION EDITOR-NURSING ASSOCIATE Tanner Alcantar MD Normal [facility] Reticulocyteon 11-27-2019 Abs Retic 0.082 M/uL Normal 0.0180-0.100 0 [facility] Retic% 2.1 % High 0.4-2.0 [facility] Vital Signs Date Time Vital Sign Value Performing Clinician Faci lity 01-15-2024 10:54-0500 Body height 167.6 cm Charanjit Wong MD Work Phone: [facility] 01-15-2024 10:54-0500 Body mass index (BMI) [Ratio] 27.45 kg/m2 Charanjit Wong MD Work Phone: [facility] 01-15-2024 10:54-0500 Body temperature 99.1 [degF] Charanjit Wong MD Work Phone: [facility] 01-15-2024 10:54-0500 Body weight 77.11 kg Charanjit Wong MD Work Phone: [facility] 01-15-2024 10:54-0500 Diastolic blood pressure 78 mm[Hg] Charanjit Wong MD Work Phone: [facility] 01-15-2024 10:54-0500 Heart rate 96 /min Charanjit Wong MD Work Phone: [facility] 01-15-2024 10:54-0500 SaO2% (BldA) [Mass fraction] 99 % Charanjit Wong MD Work Phone: [facility] 01-15-2024 10:54-0500 Systolic blood pressure 128 mm[Hg] Charanjit Wong MD Work Phone: [facility] Encounters Encounter Date Encounter Type Care Provider Facility Start: 04-23-2024 End: 04-23-2024 ambulatory [facility] Start: 04-21-2024 End: 04-21-2024 ambulatory SELMA JSOE Not Available Start: 04-07-2024 End: 04-07-2024 ambulatory SELMA JOSE Not Available Start: 01-16-2024 Refill Charanjit Wong MD Work Phone: [facility] Comment on above: Essential hypertensi on; Depression, unspecified depression type; Type 2 diabetes mellitus with hyperosmolarity without coma, without long-term current use of insulin ([facility]); Type 2 diabetes mellitus without complication, without long-term current use of insulin ([facility]); Mixed hyperlipidemia Start: 01-15-2024 End: 01-15-2024 ambulatory [facility] Start: 01-15-2024 End: 01-15-2024 Office outpatient visit 15 minutes Charanjit Wong MD Work Phone: [facility] Comment on above: Anasarca (Primary Dx ) Start: 12-11-2023 Refill Adysan Sleek ADMISSIONS CLERK [facility] Comment on above: Mixed hyperlipidemia Start: 03-02-2023 End: 03-02-2023 ambulatory Outreach Community Facility:[facility] Start: 03-02-2023 End: 03-02-2023 ambulatory RIG BUILDER-BC Xochilt Benedict Work Phone: [facility] Work Phone: Start: 03-02-2023 End: 03-02-2023 Departed Referred RIG BUILDER-BC Xochilt Benedict Work Phone: [facility] Work Phone: Start: 04-06-2020 End: 04-06-2020 Patient encounter procedure SELMA GARCIA Facility:[facility]1 Procedures Date Procedure Procedure Detail Performing Clinician Start: 12-12-2022 Mammography Adysan Sle ek ADMISSIONS CLERK Start: 11-27-2022 Adult depression scr eening assessment Adalycia Sleek ADMISSIONS CLERK Start: 01-08-2020 Colonoscopy Adysadeline Sle ek ADMISSIONS CLERK Plan of Treatment Date Care Activity Detail Author Start: 01-08-2030 Screening for malignant neoplasm of colon Colonoscopy [facility] Start: 12-27-2028 DTaP,Tdap and Td Vaccines (2 - Td or Tdap) DTaP,Tdap and Td Vaccines (2 - Td or Tdap) [facility] Start: 01-14-2025 Adult BMI Screening Adult BMI Screening [facility] Start: 01-14-2025 Tobacco Screening Tobacco Screening [facility] Start: 05-23-2024 Adult BMI Screening Adult BMI Screening [facility] Start: 05-23-2024 Tobacco Screening Tobacco Screening [facility] Start: 01-15-2024 End: 01-15-2024 Patient encounter procedure 01/15/2024 10:45 AM EST Office Visit [facility] [address] [place] [address] Charanjit Wong MD [address], [place] [address] [facility] Start: 12-12-2023 Screening for malignant neoplasm of breast Mammogram [facility] Start: 11-30-2023 Diabetic foot examination Diabetic Foot Exam [facility] Start: 11-27-2023 Depression Screening Depression Screening [facility] Start: 07-12-2023 COVID-19 Vaccine ( season) COVID-19 Vaccine ( season) [facility] Start: 07-12-2023 Influenza vaccination Influenza Vaccine [facility] Start: 2019 Administration of varicella zoster vaccine Zoster (Shingles) Vaccine (1 of 2) [facility] Start: 1990 Screening for malignant neoplasm of cervix Pap Smear [facility] Start: 1987 Adult BMI Follow Up Plan Adult BMI Follow Up Plan [facility] Start: 1969 Glaucoma screening Diabetic Ophthalmology Exam [facility] Immunizations Immunization Date Immunization Notes Care Provider Fa nancy 11-18-2019 influenza, injectabl e, quadrivalent, preservative free Adysan Sleek [facility] 11-18-2019 influenza virus vaccine, unspecified formulation Adysan Sleek [facility] 12-27-2018 tetanus toxoid, redu tom diphtheria toxoid, and acellular pertussis vaccine, adsorbed Adysan Sleek [facility] 09-22-2018 influenza, injectabl e, quadrivalent, preservative free Adysan Sleek [facility] NEGATED: Highlighted row has not occurred!04-24-2021 pneumococcal polysaccharide vaccine, 23 valent [employer] [facility] Comment on above: Deferred: Patient Re fused NEGATED: Highlighted row has not occurred!10-20-2020 influenza, injectable, quadrivalent, preservative free Adysan Sleek [facility] Comment on above: Deferred: Parental d ecision Payers Date Payer Category Payer Self-pay [id number] 2022 Unknown [employer] OUT OF STATE PPO/TRUST [id number] 2022-Present [phone] [address] [place] [address] [id number] 2022 Unknown [id number] 1969 Unknown [id number] 1969 Unknown [id number] 1969 Unknown [id number] 1969 Unknown [id number] 1969 Unknown [id number] 1959 Unknown [id number] Unknown [id number] Social History Date Type Detail Facility Tobacco smoking stat [facility] Unknown if ever smoked [facility] Work Phone: Start: 1970 Sex Assigned At Female F [facility] Start: 11-30-2022 Tobacco smoking stat [facility] Ex-smoker [facility] End: 04-06-1996 History of tobacco use Current smoker [facility] End: 04-06-1996 History of tobacco use Cigarette Smoker [facility] Start: 11-30-2022 Tobacco use and exposure Smoke less tobacco non-user [facility] Start: 05-23-2023 End: 01-15-2024 Alcohol intake Current drinker of alcohol (finding) [facility] Start: 11-27-2022 End: 05-23-2023 Alcohol intake [facility] Start: 11-27-2022 End: 01-12-2024 Social connection and isolation panel [facility] Do you belong to any clubs or organizations such as protestant groups, unions, fraternal or athletic groups, or school groups? No [facility] Are you now , , , , never or living with a partner? [facility] How often to you hav e a drink containing alcohol? 2-4 times a month [facility] How many standard dr inks containing alcohol do you have on a typical day? 1 or 2 [facility] How often do you hav e 6 or more drinks on 1 occasion? Never [facility] How hard is it for y ou to pay for the very basics like food, housing, medical care, and heating Not hard at all [facility] Do you feel stress - tense, restless, nervous, or anxious, or unable to sleep at night because your mind is troubled all the time - these days [OSQ] Only a little [facility] Start: 04-21-2021 Education 15 [facility] Start: 11-03-2019 End: 11-30-2022 Tobacco Comment social [employer] Start: 1970 Sex Assigned At Not on file P [employer] Medical Equipment Procedure Code Equipment Code Equipment Origin al Text Equipment Identifier Dates Hd Fem 36mm Opt Shl Actb G7 Bl Rpl [id number] - [id number] Start: 04-14-2020 Slv Fem Opt -3mm Tpr Hip Blx D - [id number] - [id number] Start: 10-25-2020 Goals Date Patient Goal [...] from the original note were not included. [address] [place] [address] Patient: Corine Buckley Date of : [...] Physician [facility] / [facility] 01/15/24 This note was completed with voice recognition software. The document was reviewed for errors however some may still be present. Please do not hesitate to contact/[facility] the author to verify any questions/concerns. documented in this encounter [facility] Evaluation note Note Date & Type Note Facility Evaluation note No assessment information [facility] Work Phone: Evaluation note Note Date & Type Note Facility Evaluation note Diagnosis Mixed hyperlipidemia documented in this encounter [facility] Evaluation note Note Date & Type Note Facility Evaluation note Diagnosis Anasarca- Primary Edema documented in this encounter [facility] Evaluation note Note Date & Type Note Facility Evaluation note Diagnosis Essential hypertension Unspecified essential hypertension Depression, unspecified depression type Type 2 diabetes mellitus with hyperosmolarity without coma, without long-term current use of insulin ([facility]) Type 2 diabetes mellitus without complication, without long-term current use of insulin ([facility]) Mixed hyperlipidemia documented in this encounter [facility] [...] section and content) DATE CREATED AUTHOR 12/04/2019 [facility] DATE CREATED AUTHOR AUTHOR'S ORGANIZ ATION 04/09/2020 [facility] DATE CREATED AUTHOR AUTHOR'S ORGANIZ ATION 03/03/2023 [facility] DATE CREATED AUTHOR AUTHOR'S ORGANIZ ATION 04/21/2024 [facility] Special[facility] DATE CREATED AUTHOR AUTHOR'S ORGANIZ ATION 04/25/2024 [facility] Care Teams (unrecognized sec tion and content) Team Status: Active Member Role Status D[facility] Active Team Status: Inactive Member Role Status Dates [facility] Care Provider Active Outreach Community Attending Provider Active Milk Sampler Relationship Specialty Start Date End Date Charanjit Wong MD [address] [place] [address] PCP - General Internal Medicine 05/11/23 Milk Sampler Relationship Specialty Start Date End Date Charanjit Wong MD [address] [place] [address] PCP - General Internal Medicine 05/11/23 Goals [...] BE BASED ON THE PRIMARY CLINICAL RECORDS. [employer] provides no warranty or guarantee of the accuracy or completeness of information in this document.
[2024-05-15 10:06] LABS: Basophils Absolute Auto 0.1 10^3/uL (0.0-0.1); Basophils Percent Auto 1.7 % (0.2-2.0); Eosinophils Absolute Auto 0.2 10^3/uL (0.0-0.7); Eosinophils Percent Auto 4.1 % (0.9-7.0); Hematocrit 40.9 % (36.0-48.0); Hemoglobin 13.9 g/dL (12.0-16.0); Lymphocytes Absolute Auto 1.8 10^3/uL (1.2-3.8); Lymphocytes Percent Auto 38.2 % (20.5-60.0); Mean Corpuscular Hemoglobin 29.1 pg (26.7-34.0); Mean Corpuscular Volume 85.7 fL (81.0-99.0); Mean Platelet Volume 8.4 fL (9.5-13.5); Monocytes Absolute Auto 0.4 10^3/uL (0.3-0.8); Monocytes Percent Auto 7.8 % (1.7-12.0); Neutrophils Absolute Auto 2.2 10^3/uL (1.4-6.5); Neutrophils Percent Auto 48.2 % (43.0-75.0); Platelet Count 344 10^3/uL (150-450); Red Blood Count 4.77 10^6/uL (4.20-5.40); Red Cell Distribution Width 12.4 % (11.0-15.0); White Blood Count 4.6 10^3/uL (4.0-11.0)
[2024-05-15 10:46] LABS: Glucometer 169 mg/dL (74-106)
[2024-05-15 10:51] LABS: HCG Quantitative <1 mIU/mL
[2024-05-15] MEDS: LACTATED RINGER'S SOLUTION 1,000 ML 50 ML IV (10:56)
--- NOTE | 2024-05-15 14:30 | P.ON_ITS ---
Brief Operative Note Date of procedure: 05/15/24 Pre-op diagnosis general: pelvic pain, uterine fibroids, dysparuenia, pelvic f ullness Post-op diagnosis: same as pre-op Procedure: NAME OF PROCEDURE: [ D&c hysteroscopy, dx laparoscopy] PROCEDURE: The patient was taken back to the Operating Room where she was prepped and draped in normal sterile fashion after being placed under general anesthesia without difficulty. She was also placed in the dorsal lithotomy position. A weighted speculum was placed in the patient?s vagina. The anterior lip of the cervix was identified and grasped with a single tooth tenaculum. The patient?s uterus was then sounded roughly to [? 8] cm. The patient was then gently dilated using Hegar dilators. The hysteroscope was passed through the patient?s cervix into the uterus. Both ostia were identified. atrophic appearing endometrium. No gross evidence of malignancy, no gross evidence of polyps or fibroids. gentle currettage was performed, endometrial currettings sent off to pathology. The single tooth tenaculum was then removed from the patient's anterior lip of the cervix where excellent hemostasis was noted. All instruments were removed from the patient?s vagina. A sponge stick was placed into the patient's vagina. Attention was turned to the patient's abdomen, where a small umbilical incision was made. The fascia was tented using Zan clamps and the fascia was entered sharply. Confirmation of intraabdominal placement of the 10 mm port was confirmed under direct visualization using a laparoscope. The patient's abdomen was then insufflated using CO2 gas with approximately 4 liters. A second port was placed left laterally, this was done under direct visualization with a 5 mm port. Survey of the patient's abdomen demonstrated normal liver and gallbladder. Survey of the patient's pelvic anatomy demonstrated normal appearing rt and lt ovary and tubes as well as several large uterine fibroids, approximately 5cm in size each. No endometrial implants could be noted, no evidence of any pelvic disease was seen, normal appearing pelvic cavity. All instruments were removed from the patient's abdomen. The patient's abdomen was deinsufflated of CO2 gas. The patient tolerated the procedure well. Sponge stick was removed from the patient's vagina. The patient's infraumbilical fascia was closed using #0 Vicryl on a GI needle. The patient's skin was closed laterally and infraumbilically using 4-0 Vicryl. The patient tolerated the procedure well. Sponge, lap and needle counts were correct x 2. The patient was taken to Recovery Room in stable condition. Anesthesia: MAKENNA Surgeon: Casper Navarrete Structures Technician: Priscilla Garnica Estimated blood loss (mL): 5 Pathology: other (endometrial currettings) Condition: stable Disposition: PACU Urinary Catheter Management Urinary Catheter Management Urethral: Cath placed during this visit: no
[2024-05-15] MEDS: LACTATED RINGER'S SOLUTION 1,000 ML 150 ML IV (15:03)
[2024-05-15] MEDS: HYDROCODONE/ACET 5-325 MG TABLET 1 TAB PO (15:04)
== END 2024-05-15 16:30 | disposition home or self-care (01) ==
PROVIDERS: Visit Provider Obstetrics & Gynecology
PROC: (CPT 00840; principal; 2024-05-15 11:10)
DX: R10.2 Pelvic and perineal pain (principal); N95.0 Postmenopausal bleeding; N94.10 Unspecified dyspareunia; D25.9 Leiomyoma of uterus, unspecified; Z98.51 Tubal ligation status; Z96.649 Presence of unspecified artificial hip joint; Z87.891 Personal history of nicotine dependence; E78.5 Hyperlipidemia, unspecified; I10 Essential (primary) hypertension; E11.9 Type 2 diabetes mellitus without complications; Z79.84 Long term (current) use of oral hypoglycemic drugs; M19.90 Unspecified osteoarthritis, unspecified site
CPT/HCPCS: 00840; 00952; 49320; 58558; 36415; 82948; 84702; 85025; 88305; J1100; J1885; J2250; J2371; J2405; J2704; J3010

== ENCOUNTER 2025-04-26 13:01 | Outpatient (REF) | payer SELFPAY ==
--- OUTSIDE RECORDS SUMMARY | 2025-04-26 13:05 | XMS_ITS | Encounter Summary ---
Author Organization [employer] Address [id number] [address] [place] [address] Care Team Providers Care Trim Line Worker Name Role Phone Charanjit Martell MD Primary Care Provider [phone] Encounter Details Date Type Department Care Team (Late st Contact Info) Description 12/13/2022 Telephone [facility] [address] [place] [address] [place] [address] Aleksandra Sanchez CMA Social History Tobacco Use Types Packs/Day Years Used Date Smoking Tobacco: Former Cigarettes Q uit: 04/06/1996 Smokeless Tobacco: Never Comments:social Alcohol Use Standard Drinks/Week Comments Yes 3 (1 standard drink = 0.6 oz pur e alcohol) social Social Connection and Isolation Panel [NHANES] A nswer Date Recorded In a typical week, how many times do you talk on the phone with family, friends, or neighbors? Three times a week 11/27/19 How often do you get togethe r with friends or relatives? Once a week 11/27/2022 How often do you attend chur ch or moravian services? 1 to 4 times per year 11/27/2022 Do you belong to any clubs o r organizations such as sikh groups, unions, fraternal or athletic groups, or school groups? No 11/27/2022 How often do you attend meet ings of the clubs or organizations you belong to? Never 11/27/2022 Are you , , di vorced, , never , or living with a partner? 11/27/2022 AUDIT-C Answer Date Recorded Q1: How often do you have a drink containing alc ohol? 2-4 times a month 11/27/2022 Q2: How many drinks containi ng alcohol do you have on a typical day when you are drinking? 1 or 2 11/27/2022 Q3: How often do you have si x or more drinks on one occasion? Never 11/27/2022 Overall Financial Resource Strain (CARDIA) Answe r Date Recorded How hard is it for you to pa y for the very basics like food, housing, medical care, and heating? Not hard at all 11/27/2022 PHQ-2 Answer Date Recorded Total Score 0 11/27/2022 [facility] - Occupational Stress Questionnaire Answer Date Recorded Do you feel stress - tense, restless, nervous, or anxious, or unable to sleep at night because your mind is troubled all the time - these days? Only a little 11/27/2022 Exercise Vital Sign Answer Date Recorde d On average, how many days pe r week do you engage in moderate to strenuous exercise (like a brisk walk)? 2 days 11/27/2022 On average, how many minutes do you engage in exercise at this level? 20 min 11/27/2022 PRAPARE - Transportation Answer Date Re corded In the past 12 months, has l ack of transportation kept you from medical appointments or from getting medications? No 11/11 In the past 12 months, has l ack of transportation kept you from meetings, work, or from getting things needed for daily living? No 11/27/2022 Childcare Answer Date Recorded Do problems getting child ca re make it difficult for you to work or study? No 11/27/2022 Employment Answer Date Recorded Do you need help finding a [facility] and/or a training program? No 11/27/2022 Hunger Screening Answer Date Recorded Within the past 12 months we worried whether our food would run out before we got money to buy more. Never True 11/27/2022 Within the past 12 months th e food we bought just didn't last and we didn't have money to get more. Never True 11/27/2022 Purpose - Life Answer Date Recorded I have a purpose and direction in my life. Stron gly Agree 11/27/2022 Education Answer Date Recorded What is the highest level of school you have completed or the highest degree you have received? Associate degree: occupational, technical, or vocational program 04/21/2021 Comments No Sex and Gender Information Value Date Recorded Sex Assigned at Not on file Legal Sex Female 12:18 PM EDT Gender Identity Not on file Sexual Orientation Not on file COVID-19 Exposure Response Date Recorded In the last month, have you been in contact with someone who was confirmed or suspected to have Coronavirus / COVID-19? No / Unsure 12/12/2022 10:23 AM EST documented as of this encounter Miscellaneous Notes * Telephone Encounter - Aleksandra Sanchez CMA - 12/13/2022 8:25 AM EST ----- Message from ASHLIE Perez sent at 12/12/2022 11:52 AM EST ----- Normal mammogram- recheck annually * Telephone Encounter - Aleksandra Sanchez CMA - 12/13/2022 8:25 AM EST Patient was called, she stated she understood the results and had no further questions. documented in this encounter Plan of Treatment Upcoming Encounters Date Type Department Care Team (Late st Contact Info) Description 08/23/2025 11:30 AM EDT Clinical Support [facility] [address] [place] [address] [address] [place] [address] Jose Manuel Burleson, [address] [place] [address], [address] [place] [address] documented as of this encounter Goals Goal Patient Goal Type Associated Problems Recent Progress Patient-Stated? Author dishcarge home. General Yes Maribel Griffin LISW Note: Evaluation of progress towards goal: patient plans to discharge home w/family and home care services. documented as of this encounter Visit Diagnoses Not on filedocumented in this encounter Additional Health Concerns Assessment Noted Time PHQ-9 Depression Total Score: 0 11/27/19 11:53 AM EST documented as of this encounter Care Teams Trim Line Worker Relationship Specialty Start Date End Date Charanjit Martell MD [address] [place] [address] PCP - General Internal Medicine 05/11/23 documented as of this encounter
--- OUTSIDE RECORDS SUMMARY | 2025-04-26 13:05 | XMS_ITS | Encounter Summary ---
Author Organization [employer] Address [id number] [address] [place] [address] Care Team Providers Care Shade Hanger Name Role Phone Charanjit Martell MD Primary Care Provider [phone] Encounter Details Date Type Department Care Team (Late st Contact Info) Description 05/09/2021 Telephone [facility] [address] [place] [address] [place] [address] Kanika Aceves CMA Social History Tobacco Use Types Packs/Day Years Used Date Smoking Tobacco: Former Cigarettes Q uit: 04/06/1996 Smokeless Tobacco: Never Comments:social Alcohol Use Standard Drinks/Week Comments Yes 3 (1 standard drink = 0.6 oz pur e alcohol) social Social Connection and Isolat ion Panel [NHANES] Answer Date Recorded In a typical week, how many times do you talk on the phone with family, friends, or neighbors? More than three times a week 04/21/2021 How often do you get togethe r with friends or relatives? Once a week 04/21/2021 How often do you attend chur ch or methodist services? 1 to 4 times per year 04/21/2021 Do you belong to any clubs o r organizations such as latter day groups, unions, fraternal or athletic groups, or school groups? No 04/21/2021 How often do you attend meet ings of the clubs or organizations you belong to? Never 04/21/2021 Are you , , di vorced, , never , or living with a partner? 04/21/2021 AUDIT-C Answer Date Recorded Q1: How often do you have a drink containing alc ohol? 2-3 times a week 04/21/2021 Q2: How many drinks containi ng alcohol do you have on a typical day when you are drinking? 1 or 2 04/21/2021 Q3: How often do you have si x or more drinks on one occasion? Never 04/21/2021 Overall Financial Resource Strain (CARDIA) Answe r Date Recorded How hard is it for you to pa y for the very basics like food, housing, medical care, and heating? Not hard at all 04/21/2021 PHQ-2 Answer Date Recorded Total Score 0 04/21/2021 [facility] of Occupat ional Health - Occupational Stress Questionnaire Answer Date Recorded Do you feel stress - tense, restless, nervous, or anxious, or unable to sleep at night because your mind is troubled all the time - these days? Not at all 04/21/2021 Exercise Vital Sign Answer Date Recorde d On average, how many days pe r week do you engage in moderate to strenuous exercise (like a brisk walk)? 1 day 04/21/2021 On average, how many minutes do you engage in exercise at this level? 10 min 04/21/2021 PRAPARE - Transportation Answer Date Re corded In the past 12 months, has l ack of transportation kept you from medical appointments or from getting medications? No 04/11 In the past 12 months, has l ack of transportation kept you from meetings, work, or from getting things needed for daily living? No 04/21/2021 Childcare Answer Date Recorded Do problems getting child ca re make it difficult for you to work or study? No 04/21/2021 Employment Answer Date Recorded Do you need help finding a l ocal career center and/or a training program? No 04/21/2021 Purpose - Life Answer Date Recorded I have a purpose and direction in my life. Stron gly Agree 04/21/2021 Education Answer Date Recorded What is the [...] have Coronavirus / COVID-19? No / Unsure 05/04/2021 1:09 PM EDT documented as of this encounter Miscellaneous Notes * Telephone Encounter - Kanika Aceves CMA - 05/09/2021 3:54 PM EDT Patient called stating she has some type of rash that she has had before and Dr López prescribed acream for that worked well. She would like to know if you will send in a refill for her of lotrisone. Patient is scheduled for Saturday morning in case you wanted her to be see, I told her I would callher back and cancel if you did not need to see her.Please advise. * Telephone Encounter - ASHLIE Perez - 05/09/2021 3:54 PM EDT Yes, patient will need to be seen before the medication can be ordered. documented in this encounter Plan of Treatment Upcoming Encounters Date Type Department Care Team (Late st Contact Info) Description 08/23/2025 11:30 AM EDT Clinical Support [facility] [address] [place] [address] [place] [address] Jose Manuel Burleson, [address] [place] [address], [address], [place] [address] documented as of this encounter Goals Goal Patient Goal Type Associated Problems Recent Progress Patient-Stated? Author chayito home. General Yes Maribel Griffin LISW Note: Evaluation of progress towards goal: patient plans to discharge home w/family and home care services. documented as of this encounter Visit Diagnoses Not on filedocumented in this encounter Additional Health Concerns Assessment Noted Time PHQ-9 Depression Total Score: 0 04/21/20 21 10:34 AM EDT documented as of this encounter Care Teams Shade Hanger Relationship Specialty Start Date End Date Charanjit Martell MD [address] [facility], [place] [address] PCP - General Internal Medicine 05/11/23 documented as of this encounter
--- OUTSIDE RECORDS SUMMARY | 2025-04-26 13:05 | XMS_ITS | Encounter Summary ---
Author Organization [facility] Address [id number] [address] [place] [address] Care Team Providers Care Development And Planning Engineer Name Role Phone Charanjit Martell MD Primary Care Provider [phone] Reason for Visit * Reason Comments Med Refill Encounter Details Date Type Department Care Team (Late st Contact Info) Description 04/16/2022 Refill [facility] [address] [place] [address] [place] [address] Xochilt Benedict, PARKING ENFORCEMENT TECHNICIAN-[place] [id number] [place] [phone] Depression, unspecified depression type Social History Tobacco Use Types Packs/Day Years [...] 04/21/2021 How often do you attend chur or latter-day services? 1 to 4 times per year 04/21/2021 Do you belong to any clubs o r organizations such as restoration groups, unions, fraternal or athletic groups, or [...] Answer Date Recorded Total Score 0 04/21/2021 [facility] of Occupat ional Health - Occupational Stress [...] Do you need help finding a l al career center and/or a training program? No 04/21/2021 Purpose - Life Answer Date Recorded I have a purpose and direction in my life. Stroeunice gly Agree 04/21/2021 Education Answer Date Recorded What is the highest level of school you have completed or the highest degree you have received? Associate degree: occupational, technical, or vocational program 04/21/2021 Comments No Sex and Gender Information Value Date Recorded Sex Assigned at Not on file Legal Sex Female 12:18 PM EDT Gender Identity Not on file Sexual Orientation Not on file documented as of this encounter Miscellaneous Notes * Telephone Encounter - Linda Gabriel CMA - 04/16/2022 12:10 AM EDT Called patient to schedule an appt for refills. documented in this encounter Plan of Treatment Upcoming Encounters Date Type Department Care Team (Late st Contact Info) Description 08/23/2025 11:30 AM EDT Clinical Support [facility] [address] [place] [address] [place] [address] Jose Manuel Burleson, [address] [facility] [address], [place] [address] documented as of this encounter Goals Goal Patient Goal Type Associated Problems Recent Progress Patient-Stated? Author dishcarlee home. General Yes Maribel Griffin LISW Note: Evaluation of progress towards goal: patient plans to discharge home w/family and home care services. documented as of this encounter Visit Diagnoses Diagnosis Depression, unspecified depression type documented in this encounter Additional Health Concerns Assessment Noted Time PHQ-9 Depression Total Score: 0 04/21/20 21 10:34 AM EDT documented as of this encounter Care Teams Development And Planning Engineer Relationship Specialty Start Date End Date Charanjit Martell MD [address] [place], [place] [phone] PCP - General Internal Medicine 05/11/23 documented as of this encounter
--- OUTSIDE RECORDS SUMMARY | 2025-04-26 13:05 | XMS_ITS | Encounter Summary ---
Author Organization [facility] Address [id number] [address] [place] [address] Care Team Providers Care Auto Damage Trainee Name Role Phone Charanjit Martell MD Primary Care Provider [phone] Reason for Visit * Reason Comments Med Refill Encounter Details Date Type Department Care Team (Late st Contact Info) Description 08/15/2020 Refill [facility] [address] [place] [place] [address] [place] [address] Xochilt Benedict, EVARISTO-PAVING MACHINE OPERATOR [address] [facility] [address] [place] [id number] Essential hypertension; Depression, unspecified depression type; Type 2 diabetes mellitus without complication, without long-term current use of insulin ([facility]) Social History Tobacco Use Types Packs/Day Years Used Date Smoking Tobacco: Former Cigarettes Q uit: 04/06/1996 Smokeless Tobacco: Never Alcohol Use Standard Drinks/Week Comments Yes 3 (1 standard drink = 0.6 oz pur e alcohol) social PHQ-2 Answer Date Recorded PHQ-2 Score 1 03/30/2019 Childcare Answer Date Recorded Childcare Unknown 04/20/2019 Employment Answer Date Recorded Employment Unknown 04/20/2019 Comments No Sex and Gender Information Value Date Recorded Sex Assigned at Not on file Legal Sex Female 12:18 PM EDT Gender Identity Not on file Sexual Orientation Not on file documented as of this encounter Plan of Treatment Upcoming Encounters Date Type Department Care Team (Late st Contact Info) Description 08/23/2025 11:30 AM EDT Clinical Support [facility] [address] [place] [address] Jose Manuel Burleson, [address] [place], [address], [place] [address] documented as of this encounter Visit Diagnoses Diagnosis Essential hypertension Unspecified essential hypertension Depression, unspecified depression type Type 2 diabetes mellitus without complication, without long-term current use of insulin ([facility]) documented in this encounter Additional Health Concerns Assessment Noted Time PHQ-9 Depression Total Score: 1 03/30/20 19 12:00 PM EDT documented as of this encounter Care Teams Auto Damage Trainee Relationship Specialty Start Date End Date Charanjit Martell MD 605 [facility] [place] [address] PCP - General Internal Medicine 05/11/23 documented as of this encounter
--- OUTSIDE RECORDS SUMMARY | 2025-04-26 13:05 | XMS_ITS | Continuity of Care Document ---
Author Organization [facility] Address [address] [place] [address] Problems Unknown Problems Results Test Result Date/Time Value / Unit Interp. Refere nce Range SARS-COV-2 (COVID19), NAAT[[id number]] Collected: 10/10/2020 07:06 PM Specimen Received: 10/12/2020 04:13 AM Source: [facility] SARS-CoV-2 INTERPRETATION [[id number]] 10/12/2020 01:36 PM Negative See Note SARS-CoV-2 RNA NOT DETECTEDN egative results do not preclude SARS-CoV-2 infection and should notbe used as the sole basis for patient management decisions. Negativeresults must be combined with clinical observations, patient history,and epidemiological information. Optimum specimen types and timingfor peak viral levels during infections caused by SARS-CoV-2 have notbeen determined. Collection of multiple specimens or types ofspecimens may be necessary to detect virus. Improper specimencollection and handling, sequence variability under primers/probes,or organism present below the limit of detection may lead to falsenegative results. Positive and negative predictive values oftesting are highly dependent on prevalence. False negative testresults are more likely when prevalence is high. SOURCE [[id number]] 10/12/2020 01:36 PM NASOPHARYNGEAL Note: Methodology is Balaji C denise Real-Time RT-PCR. The expected result or reference range is NEGATIVE (Not Detected). For more information regarding COVID-19 testing to include clinicalinformation, methodology detail, intended use, FDA authorization andrecommended fact sheets for patients or healthcare providers, see [facility] Announcement: SARS-CoV-2 (COVID-19) by NAAT at URL below (note,fact sheets are provided by method given in report:[email or web address] Alternatively, see downloadable PDF fact sheet at:[email or web address] Allergies, adverse reactions, alerts No known allergies and adverse reactions Medications No administered medications reported Vital Signs No vital signs reported Social History No smoking Hx information available
--- OUTSIDE RECORDS SUMMARY | 2025-04-26 13:05 | XMS_ITS | Encounter Summary ---
Author Organization [facility] Address [id number] [address] [place] [address] Care Team Providers Care Marketing Information Manager Name Role Phone Charanjit Martell MD Primary Care Provider [phone] Reason for Visit * Reason Comments Med Refill Encounter Details Date Type Department Care Team (Late st Contact Info) Description 10/14/2020 Refill [facility] [address] [place] [address] [place] [address] Xochilt Benedict, FURNACE COMBINATION ANALYST-DISEASE INTERVENTION SPECIALIST [address] [facility] [address] [place] [address] Type 2 diabetes mellitus without complication, without long-term current use of insulin ([facility]); Depression, unspecified depression type; Essential hypertension Social History Tobacco Use Types Packs/Day Years Used Date Smoking Tobacco: Former Cigarettes Q uit: 04/06/1996 Smokeless Tobacco: Never Comments:social Alcohol Use Standard Drinks/Week Comments Yes 3 (1 standard drink = 0.6 oz pur e alcohol) social PHQ-2 Answer Date Recorded PHQ-2 Score 0 09/29/2020 Childcare Answer Date Recorded Childcare Unknown 04/20/2019 [...] have Coronavirus / COVID-19? No / Unsure 09/29/2020 1:15 PM EST documented as of this encounter Miscellaneous Notes * Telephone Encounter - ASHLIE Perez - 10/14/2020 12:10 AM EST Patient needs an appointment for medication refills. Patients was last seen in March for pre-surgicalclearance documented in this encounter Plan of Treatment Upcoming Encounters Date Type Department Care Team (Late st Contact Info) Description 08/23/2025 11:30 AM EDT Clinical Support [facility] [address] [place] [address] Jose Manuel Burleson, [address] [place] [address], [facility], [place] [address] documented as of this encounter Visit Diagnoses Diagnosis Type 2 diabetes mellitus without complication, without long-term current use of insulin ([facility]) Depression, unspecified depression type Essential hypertension Unspecified essential hypertension documented in this encounter Additional Health Concerns Assessment Noted Time PHQ-9 Depression Total Score: 0 09/29/20 20 1:16 PM EST documented as of this encounter Care Teams Marketing Information Manager Relationship Specialty Start Date End Date Charanjit Martell MD [address] [place] [address] PCP - General Internal Medicine 05/11/23 documented as of this encounter
--- OUTSIDE RECORDS SUMMARY | 2025-04-26 13:05 | XMS_ITS | Encounter Summary ---
Author Organization [employer] Address [id number] [address] [place] [address] Care Team Providers Care Individualized Education Plan Aide Name Role Phone Charanjit Martell MD Primary Care Provider [phone] Reason for Visit * Reason Comments Med Refill Encounter Details Date Type Department Care Team (Late st Contact Info) Description 08/15/2017 Refill [facility] [address] [place] [address] [place] [address] Helen López, HUMAN RESOURCES BENEFITS SPECIALIST-NON DESTRUCTIVE EVALUATION SPECIALIST [address] [place] [id number] Social History Tobacco Use Types Packs/Day Years Used Date Smoking Tobacco: Never Assessed Comments Unknown Sex and Gender Information Value Date Recorded Sex Assigned at Not on file Legal Sex Female 12:18 PM EDT Gender Identity Not on file Sexual Orientation Not on file documented as of this encounter Plan of Treatment Upcoming Encounters Date Type Department Care Team (Late st Contact Info) Description 08/23/2025 11:30 AM EDT Clinical Support [facility] [address] [place] [address] [place] [address] Jose Manuel Burleson, DO [address] [place] [address], [address], [place] [address] documented as of this encounter Visit Diagnoses Not on filedocumented in this encounter Care Teams Individualized Education Plan Aide Relationship Specialty Start Date End Date Charanjit Martell MD [address] [facility] [place] [address] PCP - General Internal Medicine 05/11/23 documented as of this encounter
--- OUTSIDE RECORDS SUMMARY | 2025-04-26 13:05 | XMS_ITS | Encounter Summary ---
Author Organization [facility] Address [id number] [address] [place] [address] Care Team Providers Care Shift Superintendent Caustic Cresylate Name Role Phone Charanjit Martell MD Primary Care Provider [phone] Reason for Visit * Reason Comments Med Refill Encounter Details Date Type Department Care Team (Late st Contact Info) Description 03/13/2021 Refill [facility] [address] [place] [address] [place] [address] Xochilt Benedict, EVARISTO-UTILIZATION MANAGEMENT NURSE [address] [place] [address] [address] [facility] [place] [phone] Essential hypertension; Depression, unspecified depression type; Type 2 diabetes mellitus without complication, without long-term current use of insulin ([facility]) Social History Tobacco Use Types Packs/Day Years Used Date Smoking Tobacco: Former Cigarettes Q uit: 04/06/1996 Smokeless Tobacco: Never Comments:social Alcohol Use Standard Drinks/Week Comments Yes 3 (1 standard drink = 0.6 oz pur e alcohol) social PHQ-2 Answer Date Recorded Total Score 0 10/25/2020 Childcare Answer Date Recorded Childcare Unknown 04/20/2019 Employment Answer Date Recorded Employment Unknown 04/20/2019 Purpose - Life Answer Date Recorded Purpose and direction in life Unknown Comments No Sex and Gender Information Value [...] [facility] [address] [email or web address] [place] [address] Jose Manuel Burleson, DO [address] [place], [address] [place] [address] documented as of this encounter [...] complication, without long-term current use of insulin ([facility]) documented in this encounter Additional Health Concerns Assessment Noted Time PHQ-9 Depression Total Score: 0 10/25/20 20 6:04 AM EST documented as of this encounter Care Teams Shift Superintendent Caustic Cresylate Relationship Specialty Start Date End Date Charanjit Martell MD [address], [place], [place] [id number] PCP - General Internal Medicine 05/11/23 documented as of this encounter
--- OUTSIDE RECORDS SUMMARY | 2025-04-26 13:05 | XMS_ITS | Encounter Summary ---
Author Organization [facility] Address [id number] [address] [place] [address] Care Team Providers Care Greenkeeper Name Role Phone Charanjit Martell MD Primary Care Provider [phone] Reason for Visit * Reason Comments Med Refill Encounter Details Date Type Department Care Team (Late st Contact Info) Description 03/23/2019 Refill [facility] [address] [place] [address] [place] [address] Xochilt Benedict APRN-CNP [address] [facility] [address] [place] [address] Depression, unspecified depression type Social History Tobacco Use Types Packs/Day Years Used Date Smoking Tobacco: Former Smokeless Tobacco: Never Alcohol Use Standard Drinks/Week Comments Yes 0 (1 standard drink = 0.6 oz pur e alcohol) PHQ-2 Answer Date Recorded PHQ-2 Score 2 11/20/2018 Childcare Answer Date Recorded Childcare Unknown 02/02/2019 Employment Answer Date Recorded Employment Unknown 02/02/2019 Comments Unknown Sex and Gender Information Value Date Recorded Sex Assigned at Not on file Legal Sex Female 12:18 PM EDT Gender Identity Not on file Sexual Orientation Not on file documented as of this encounter Miscellaneous Notes * Telephone Encounter - ASHLIE Perez - 03/23/2019 12:08 AM EDT Patient needs to schedule an appointment for medication refills. 30-day script sent to the pharmacy * Telephone Encounter - Judith Montes CMA - 03/23/2019 12:08 AM EDT Poultry Barn Manager phoned patient and notified 30 day supply of wellbutrin was sent in and made an appointment for patient on 03/30/19. documented in this encounter Plan of Treatment Upcoming Encounters Date Type Department Care Team (Late st Contact Info) Description 08/23/2025 11:30 AM EDT Clinical Support [facility] [address] [place] [address] Jose Manuel Burleson, [address] [place] [address], [facility], [place], [place] [id number] documented as of this encounter Visit Diagnoses Diagnosis Depression, unspecified depression type documented in this encounter Additional Health Concerns Assessment Noted Time PHQ-9 Depression Total Score: 2 09/22/20 18 2:00 PM EST documented as of this encounter Care Teams Greenkeeper Relationship Specialty Start Date End Date Charanjit Martell MD [address] [place], [place] [id number] PCP - General Internal Medicine 05/11/23 documented as of this encounter
--- OUTSIDE RECORDS SUMMARY | 2025-04-26 13:05 | XMS_ITS | Encounter Summary ---
Author Organization [id number] [address] [place] [address] Care Team Providers Care Precision Honing Machine Operator Name Role Phone Charanjit Martell MD Primary Care Provider [phone] Reason for Visit * Reason Onset Date Comments Med Refill 09/17/2018 Encounter Details Date Type Department Care Team (Late st Contact Info) Description 09/17/2018 [facility] [address] [place] [address] [place] [address] Xochilt Benedict APRN-CNP [address] [facility] [address] [place], [place] [id number] Social History Tobacco Use Types Packs/Day Years Used Date Smoking Tobacco: Former Smokeless Tobacco: Never Alcohol Use Standard Drinks/Week Comments Yes 0 (1 standard drink = 0.6 oz pur e alcohol) Comments Unknown Sex and Gender Information Value Date Recorded Sex Assigned at Not on file Legal Sex Female 12:18 PM EDT Gender Identity Not on file Sexual Orientation Not on file documented as of this encounter Miscellaneous Notes * Telephone Encounter - ASHLIE Perez - 09/17/2018 11:38 AM EST Patient needs to schedule an appointment. She has not been seen since 01/2018 * Telephone Encounter - Reanna Palumbo - 09/17/2018 11:38 AM EST MESSAGE LEFT FOR PATIENT TO CALL AND SCHEDULE documented in this encounter Plan of Treatment Upcoming Encounters Date Type Department Care Team (Late st Contact Info) Description 08/23/2025 11:30 AM EDT Clinical Support [facility] [address] [place] [address] [place] [address] Jose Manuel Burleson, [address] [facility], [address], [place] [address] documented as of this encounter Visit Diagnoses Not on filedocumented in this encounter Additional Health Concerns Assessment Noted Time PHQ-9 Depression Total Score: 0 02/04/20 18 11:00 AM EDT documented as of this encounter Care Teams Precision Honing Machine Operator Relationship Specialty Start Date End Date Charanjit Martell MD [address] [facility] [place] [address] PCP - General Internal Medicine 05/11/23 documented as of this encounter
--- OUTSIDE RECORDS SUMMARY | 2025-04-26 13:05 | XMS_ITS | Encounter Summary ---
Author Organization [facility] [employer] [facility] Address [id number] [address] [place] [address] Care Team Providers Care Timber Bucker Name Role Phone Charanjit Martell MD Primary Care Provider [phone] Reason for Visit * Reason Comments Med Refill Encounter Details Date Type Department Care Team (Late st Contact Info) Description 11/15/2021 Refill [facility] [address] [place] [address] [place] [address] Xochilt Benedict, [place] [id number] Essential hypertension; Depression, unspecified depression type; Type 2 diabetes mellitus with hyperosmolarity without coma, without long-term current use of insulin ([facility]); Encounter for screening mammogram for malignant neoplasm of breast; Type 2 diabetes mellitus without complication, without long-term current use of insulin ([facility]); Need for pneumococcal vaccine Social History Tobacco Use Types Packs/Day Years [...] often do you attend chur ch or adventism services? 1 to 4 times per year 04/21/2021 Do you belong to any clubs o r organizations such as spiritism groups, unions, fraternal or athletic groups, or [...] Answer Date Recorded Total Score 0 04/21/2021 [facility] - Occupational Stress [...] Recorded Do you need help finding a [facility] career center and/or a training program? No [...] Clinical Support [facility] [address] [place] [phone] Jose Manuel Burleson DO 605 [facility], [facility] [address], [facility] [place] [address] documented as of this encounter Goals Goal Patient Goal Type Associated Problems Recent Progress Patient-Stated? Author chayito andres. General Yes Maribel Griffin LISW Note: Evaluation of progress towards goal: patient plans to discharge home w/family and home care services. documented as of this encounter Visit Diagnoses Diagnosis Essential hypertension Unspecified essential hypertension Depression, unspecified depression type Type 2 diabetes mellitus with hyperosmolarity without coma, without long-term current use of insulin ([facility]) Encounter for screening mammogram for malignant neoplasm of breast Type 2 diabetes mellitus without complication, without long-term current use of insulin ([facility]) Need for pneumococcal vaccine Need for prophylactic vaccination against streptococcus pneumoniae (pneumococcus) documented in this encounter Additional Health Concerns Assessment Noted Time PHQ-9 Depression Total Score: 0 04/21/20 21 10:34 AM EDT documented as of this encounter Care Teams Timber Bucker Relationship Specialty Start Date End Date Charanjit Martell MD [address] [facility] [place] [address] PCP - General Internal Medicine 05/11/23 documented as of this encounter
--- OUTSIDE RECORDS SUMMARY | 2025-04-26 13:05 | XMS_ITS | Encounter Summary ---
Author Organization [facility] Address [id number] [address] [place] [address] Care Team Providers Care Office Automation Technician Name Role Phone Charanjit Martell MD Primary Care Provider [phone] Reason for Visit * Reason Comments Med Refill Encounter Details Date Type Department Care Team (Late st Contact Info) Description 11/12/2022 Refill [facility] [address] [place] [address] [place] [address] Xochilt Benedict, [place] [id number] Type 2 diabetes mellitus with hyperosmolarity without coma, without long-term current use of insulin ([facility]); Encounter for screening mammogram for malignant neoplasm of breast; Type 2 diabetes mellitus without complication, without long-term current use of insulin ([facility]); Need for pneumococcal vaccine; Essential hypertension; Depression, unspecified depression type Social History Tobacco [...] often do you attend chur ch or islam services? 1 to 4 times per year 04/21/2021 Do you belong to any clubs o r organizations such as sikhism groups, unions, fraternal or athletic groups, or [...] PHQ-2 Answer Date Recorded Total Score 0 05/02/2022 [facility]at ional Health - Occupational Stress [...] Recorded Do you need help finding a [facility] career center and/or a training program? No [...] encounter Miscellaneous Notes * Telephone Encounter - Marlene Gupta CMA - 11/12/2022 12:08 AM EST Called patient no answer left a message for patient to call back to schedule an appointment for medication refills documented in this encounter Plan of Treatment Upcoming Encounters Date Type Department Care Team (Late st Contact Info) Description 08/23/2025 11:30 AM EDT Clinical Support [facility] [address] [place] [address] [place] [address] Jose Manuel Burleson, 605 [facility], [facility], [place] [address] documented as of this encounter Goals Goal Patient Goal Type Associated Problems Recent Progress Patient-Stated? Author chayito home. General Yes Maribel Griffin LISW Note: Evaluation of progress towards goal: patient plans to discharge home w/family and home care services. documented as of this encounter Visit Diagnoses Diagnosis Type 2 diabetes mellitus with hyperosmolarity without coma, without long-term current use of insulin ([facility]) Encounter for screening mammogram for malignant neoplasm of breast Type 2 diabetes mellitus without complication, without long-term current use of insulin ([facility]) Need for pneumococcal vaccine Need for prophylactic vaccination against streptococcus pneumoniae (pneumococcus) Essential hypertension Unspecified essential hypertension Depression, unspecified depression type documented in this encounter Additional Health Concerns Assessment Noted Time PHQ-9 Depression Total Score: 0 05/02/20 22 2:24 PM EDT documented as of this encounter Care Teams Office Automation Technician Relationship Specialty Start Date End Date Charanjit Martell MD [address], [facility] [place] [address] PCP - General Internal Medicine 05/11/23 documented as of this encounter
--- OUTSIDE RECORDS SUMMARY | 2025-04-26 13:05 | XMS_ITS | Clinical Summary ---
Author Organization Living Proof tem Address [id number] [address] [place] [address] Care Team Providers Care Paint Spray Inspector Name Role Phone Charanjit Martell MD Primary Care Provider [phone] Allergies Active Allergy Reactions Criticality Noted Date Comments No Known Drug Allergies 02/03/2018 Medications benazepriL (LOTENSIN) 20 mg tabletIndications:Es sential hypertension TAKE 1 TABLET NIGHTLY 90 tablet 3 4 Active atorvastatin (LIPITOR) 10 mg tabletIndications:Mi xed hyperlipidemia Take 1 tablet (10 mg total) by mouth in the morning. 90 tablet 3 5 Active buPROPion XL (WELLBUTRIN XL) 300 mg 24 hr tabletIndications:De pression, unspecified depression type Take 1 tablet (300 mg total) by mouth every morning. 90 tablet 3 5 Active escitalopram (LEXAPRO) 20 mg tabletIndications:De pression, unspecified depression type Take 1 tablet (20 mg total) by mouth in the morning. 90 tablet 3 5 Active furosemide (LASIX) 20 mg tabletIndications:Es sential hypertension Take 1 tablet (20 mg total) by mouth daily. 90 tablet 3 5 Active metFORMIN (GLUCOPHAGE) 1000 mg tabletIndications:Ty pe 2 diabetes mellitus with hyperosmolarity without coma, without long-term current use of insulin ([facility]) TAKE 1 TABLET TWICE A DAY WITH MEALS 180 tablet 3 5 Active omega 6-nuq-yor-fish oil (Fish OiL) 300-1,000 mg capsuleIndications:H igh triglycerides One tab per day 90 each 3 5 Active semaglutide 14 mg tabletIndications:Ty pe 2 diabetes mellitus with hyperosmolarity without coma, without long-term current use of insulin ([facility]) Take 14 mg by mouth in the morning for 180 days. 90 tablet 1 5 08/17/20 25 Active aspirin 81 mgIndications:Type 2 diabetes mellitus with hyperosmolarity without coma, without long-term current use of insulin ([facility]) Take 1 tablet (81 mg total) by mouth in the morning for 360 days. 90 tablet 3 5 02/14/20 26 Active Active Problems Problem Noted Date Diagnosed Date Mixed hyperlipidemia 02/18/2025 Overview (02/18/2025): Lipids 32096 - cholesterol 145, triglycerides, 189, HDL 38, LDL 69 = on atorvastatin 10 mg daily, omega-3 fish oil 1 capsule daily. Discussed starting on niacin to help with HDL cholesterol Assessment & Plan (02/18/2025 12:35 PM EDT): Lipids 4/54758 - cholesterol 145, triglycerides, 189, HDL 38, LDL 69. Lipids are markedly better than prior to starting atorvastatin. Continue with atorvastatin 10 mg daily, omega-3 fish oil 1 capsule daily. Discussed starting on niacin to help with HDL cholesterol Advised patient to continue to remain active with regular exercise Essential hypertension 02/18/2025 Assessment & Plan (02/18/2025 12:35 PM EDT): Blood pressure controlled. Continue with benazepril 20 mg daily and furosemide 20 mg daily. S/P hip replacement, left 11/08/2020 Presence of left artificial hip joint 10/24/2020 Primary osteoarthritis of left hip 09/20/2020 Overview (09/20/2020): Added automatically from request for surgery [id number] Type 2 diabetes mellitus wit h hyperosmolarity without coma, without long-term current use of insulin 04/07/2020 Assessment & Plan (02/18/2025 12:38 PM EDT): Hemoglobin A1c from February 12, 2025 was 7.3% which is slightly increased from last hemoglobin A1c in March 2024. Patient states that she has been tolerating the metformin a 1000 mg twice daily and Rybelsus 7 mg daily. Discussed with the patient the various treatment options for blood sugar control. Plan: Increased Rybelsus to 14 mg 1 tablet daily. Continue with metformin 1000 mg twice daily. Repeat hemoglobin A1c in 6 months to see if there is improvement. If no improvement to hemoglobin A1c when checked next, consider adding to current medications or stopping Rybelsus and starting a different agent Primary osteoarthritis of both hips 03/23/2020 Overview (03/23/2020): Added automatically from request for surgery [id number] Iron deficiency anemia due to chronic blood loss 11/27/2019 Resolved Problems Problem Noted Date Diagnosed Date Resolved Date Post-menopausal bleeding 04/07/202408/2025 Encounters Date Type Department Care Team Description 02/18/2025 8:30 AM EDT Office Visit [facility] [address] [place] [address] [place] [address] Jose Manuel Burleson DO Type 2 diabetes mellitus with hyperosmolarity without coma, without long-term current use of insulin ([facility]) (Primary Dx); Mixed hyperlipidemia; Depression, unspecified depression type; Essential hypertension; High triglycerides 02/16/2025 Travel 02/12/2025 11:10 AM EDT - 02/12/2025 11:59 PM EDT Hospital Encounter [facility] [address] [place] [address] Iron deficiency; Vitamin D deficiency; Type 2 diabetes mellitus with hyperosmolarity without coma, without long-term current use of insulin ([facility]); Mixed hyperlipidemia Discharge Disposition: Home 02/12/2025 Travel 01/29/2025 Telephone [facility] [address] [place] [address] [address] [place] [address] Badik, Jose Manuel D, DO from Last 3 Months Immunizations Immunization Administration Dates Next Due Influenza, Injectable, quadr ivalent (PF) 10/20/2020(Deferred: Parental decision),11/18/2019,09/22/2018 Pneumococcal Polysaccharide 04/24/2021(Deferred: Patient Refused) Tdap 12/27/2018 Family History Medical History Relation Name Comments Diabetes Father Hypertension Father Stroke Father Suicide Attempts Half Brother No Known Problems Half Sister 1 No Known Problems Half Sister 2 No Known Problems Half Sister 3 Depression Mother Diabetes Mother Hypertension Mother Breast cancer Neg Hx Relation Name Status Comments Father Half Brother Half Sister 1 Alive Half Sister 2 Alive Half Sister 3 Alive Mother Social History Tobacco Use Types Packs/Day Years Used Date Smoking Tobacco: Former Cigarettes Q uit: 04/06/1996 Smokeless Tobacco: Never Tobacco Cessation:Counseling Given: Not Answered Comments:social Alcohol Use Standard Drinks/Week Comments Yes [...] often do you attend chur ch or scientologist services? 1 to 4 times per year 11/27/2022 Do you belong to any clubs o r organizations such as anabaptist groups, unions, fraternal or athletic groups, or [...] care, and heating? Not hard at all 02/16/2025 PHQ-2 Answer Date Recorded Total Score 0 02/18/2025 [facility] [place] of Occupat ional Health - Occupational Stress [...] medical appointments or from getting medications? No 06/2025 In the past 12 months, has l ack of transportation kept you from meetings, work, or from getting things needed for daily living? No 02/16/2025 Housing Instability Answer Date Recorde d Are you worried or concerned that in the next two months you may not have stable housing that you own, rent or stay in as a part of a household? No 02/16/2025 Childcare Answer Date Recorded Do problems getting child ca re make it difficult for you to work or study? No 11/27/2022 Employment Answer Date Recorded Do you need help finding a [facility] career center and/or a training program? No 11/27/2022 Hunger Screening Answer Date Recorded Within the past 12 months we worried whether our food would run out before we got money to buy more. Never True 02/16/2025 Within the past 12 months th e food we bought just didn't last and we didn't have money to get more. Never True 02/16/2025 Purpose - Life Answer Date Recorded I [...] on file Sexual Orientation Not on file Last Filed Vital Signs Vital Sign Reading Time Taken Comments Blood Pressure 124/74 02/18/2025 8:33 AM EDT Pulse 90 02/18/2025 8:33 AM EDT Temperature 37.3 C (99.2 F) 02/18/2025 8:33 AM EDT Respiratory Rate 15 10/25/2020 4:17 PM EST Oxygen Saturation 98% 02/18/2025 8:33 AM EDT Inhaled Oxygen Concentration - - Weight 76.3 kg (168 lb 4.8 oz) 02/18/2025 8:33 A M EDT Height 165.1 cm (5' 5 ) 02/18/2025 8:33 AM EDT Body Mass Index 28.01 02/18/2025 8:33 AM EDT Plan of Treatment Upcoming Encounters Date Type Department Care Team (Late st Contact Info) Description 08/23/2025 11:30 AM EDT Clinical Support [facility] [address] [place] [address] [place] [address] Jose Manuel Burleson, DO [address] [place] [address], [address] [place] [address] Health Maintenance Due Date Last Done Comments Diabetic Ophthalmology Exam 1970 Adult BMI Follow Up Plan 1987 Zoster (Shingles) Vaccine (1 of 2) 2019 Diabetic Foot Exam 11/30/2023 11/30/2022, 0 05/02/2022, 05/02/2022, Additional history exists COVID-19 Vaccine (2 - 2023-2 5 season) 2024 07/27/2021 Influenza Vaccine 07/12/2025 11/18/2019, 09/22/2018 Mammogram 09/23/2025 09/23/2024, 02/0 11/2022, 05/04/2021, Additional history exists Adult BMI Screening 02/18/2026 02/18/2025 Depression Screening 02/18/2026 02/18/2025 Tobacco Screening 02/18/2026 02/18/2025 Pap Smear 04/21/2027 04/21/2024 DTaP,Tdap and Td Vaccines (2 - Td or Tdap) 12/27/2028 12/27/2018 Colonoscopy 01/08/2030 01/08/2020 Goals Goal Patient Goal Type Associated Problems Recent Progress Patient-Stated? Author bricelee andres. General Yes Maribel Griffin LISW Note: Evaluation of progress towards goal: patient plans to discharge home w/family and home care services. Medical Devices Implanted Type Area Ict Systems Test Engineer Device Identifier Shelf Expiration Date Model / Serial / Lot Shl Actb G7 Pps [employer] 50d - [id number] Implanted:Qty : 1 on 04/14/2020 by Juan Beard MD at [facility] Orthopedic Implant Right: Hip [employer] 08/23/2029 [id number] / / [id number] Linr Actb G7 Ntrl 36mm D - [id number] Implanted:Qty : 1 on 04/14/2020 by Juan Beard MD at [facility] Orthopedic Implant Right: Hip [employer] 03/28/2022 [id number] / / [id number] Stm Fem 105mm 133d 10 Hi Os - [id number] Implanted:Qty : 1 on 04/14/2020 by Juan Beard MD at [facility] Orthopedic Implant Right: Hip [employer] 03/13/2029 [id number] / / [id number] Slv Fem Opt -3mm Tpr Hip Blx D Rpl 650-1065 - [id number] Implanted:Qty : 1 on 04/14/2020 by Juan Beard MD at [facility] Orthopedic Implant Right: Hip [employer] 11/16/2028 [id number] / / [id number] Hd Fem 36mm Opt Shl Actb G7 Bl Rpl 650-1057 - [id number] Implanted:Qty : 1 on 04/14/2020 by Juan Beard MD at [facility] Orthopedic Implant Right: Hip [employer] 10/03/2028 650-1057 / / [id number] Slv Fem Opt -3mm Tpr Hip Blx D - [id number] - [id number] Implanted:Qty : 1 on 10/25/2020 by Juan Beard MD at [facility] Orthopedic Implant Left: Hip [employer] 05/24/2030 650-1065 / [id number] / [id number] Shl Actb G7 [employer] 50d - [id number] - [id number] Implanted:Qty : 1 on 10/25/2020 by Juan Beard MD at [facility] Orthopedic Implant Left: Hip [employer] 04/21/2030 [id number] / [id number] / [id number] Linr Actb G7 Ntrl E1 36mm D - [id number] - [id number] Implanted:Qty : 1 on 10/25/2020 by Juan Beard MD at [facility] Orthopedic Implant Left: Hip [employer] 02/09/2024 [id number] / [id number] / [id number] Hd Fem 36mm Opt Shl Actb G7 Bl - [id number] - [id number] Implanted:Qty : 1 on 10/25/2020 by Juan Beard MD at [facility] Orthopedic Implant Left: Hip [employer] 04/07/2030 650-1057 / [id number] / [id number] Stm Fem 101mm 133d 8 Hi Os Tpr - [id number] - [id number] Implanted:Qty : 1 on 10/25/2020 by Juan Beard MD at [facility] Orthopedic Implant Left: Hip [employer] 09/28/2028 [id number] / [id number] / [id number] Procedures Procedure Name Priority Date/Time Associated Diagnosis Comments COMPREHENSIVE METABOLIC PANEL Routine 02/12/2025 11:21 AM EDT Type 2 diabetes mellitus with hyperosmolarity without coma, without long-term current use of insulin ([facility]) HEMOGLOBIN A1C Routine 02/12/2025 11:21 AM EDT Type 2 diabetes mellitus with hyperosmolarity without coma, without long-term current use of insulin ([facility]) LIPID PROFILE Routine 02/12/2025 11:21 AM EDT Type 2 diabetes mellitus with hyperosmolarity without coma, without long-term current use of insulin ([facility]) Mixed hyperlipidemia IRON AND TIBC Routine 02/12/2025 11:21 AM EDT Iron deficiency VITAMIN D 25 HYDROXY Routine 02/12/2025 11:21 AM EDT Vitamin D deficiency CBC (NO DIFF) Routine 02/12/2025 11:21 AM EDT Iron deficiency MAMM SCREENING BILATERAL W CAD Routine 09/23/2024 11:48 AM EST Encounter for screening mammogram for malignant neoplasm of breast HM COLONOSCOPY Routine 01/08/2020 from Last 3 Months or Most Recently Relevant to Health Maintenance Results * Iron and TIBC (02/12/2025 11:21 AM EDT) Iron 86 50 - 170 ug/dL 02/12/2025 5:32 PM EDT [facility] Tibc-calc only do not order 398 250 - 425 ug/dL 02/12/2025 5:32 PM EDT [facility] Iron Saturation 22 15 - 50 % SATURATION 02/12/2025 5:32 PM EDT [facility] Blood (PLASMA) 02/12/2025 11 :21 AM EDT 02/12/2025 11:22 AM EDT us Jose Manuel Burleson DO LAB BLOOD ORDERABLES Final Re sult [facility] [address], [address] [place] [address] * Vitamin D 25 hydroxy (02/12/2025 11:21 AM EDT) Vit D, 25-Hydroxy 93.0 30 - 100 ng/mL 02/12/2025 5:53 PM EDT [facility] Comment: Vitamin D status 25 [place] Vitamin D Deficiency <20 ng/mL Insufficiency 20-29 ng/mL Sufficiency 30-100 ng/mL Toxicity >100 ng/mL NOTE: A pediatric reference range has not been established by the innovation manager of this kit. The [employer] recommends a Vitamin D level of = or >20ng/mL in infants and children. PLASMA 02/12/2025 11:2 1 AM EDT 02/12/2025 11:22 AM EDT us Jose Manuel Burleson DO LAB BLOOD ORDERABLES Final Re sult [facility] [address], [address] [place] [address] * (ABNORMAL) CBC without diff (02/12/2025 11:21 AM EDT) White Blood Cells 6.1 4.0 - 11.0 X10E9/L 02/12/2025 5:18 PM EDT [facility] RBC count 4.74 3.80 - 5.20 X10E12/L 02/12/2025 5:18 PM EDT [facility] Hemoglobin 14.3 11.7 - 15.5 g/dL 02/12/2025 5:18 PM EDT [facility] Hematocrit 40.9 35 - 47 % 02/12/2025 5:18 PM EDT [facility] MCV 86 80 - 100 fL 02/12/2025 5:18 PM EDT [facility] MCH 30.2 27 - 34 pg 02/12/2025 5:18 PM EDT [facility] MCHC 34.9 32 - 36 g/dL 02/12/2025 5:18 PM EDT [facility] RDW 13.3 11.5 - 15.0 % 02/12/2025 5:18 PM EDT [facility] Platelets 464(H) 150 - 450 X10E9/L 02/12/2025 5:18 PM EDT [facility] MPV 7.1 7 - 12 fL 02/12/2025 5:18 PM EDT [facility] Blood Blood / Unknown 02/12/2025 1 1:21 AM EDT 02/12/2025 11:22 AM EDT Jose Manuel Burleson LAB BLOOD ORDERABLES Final Re sult Performing Organization Address City/[facility]/ZIP Co de Phone Number [facility] [address] [place] [address], [address] [place] [address] * (ABNORMAL) Hemoglobin A1c (02/12/2025 11:21 AM EDT) Hemoglobin A1C 7.3(H) 4.4 - 5.6 % 02/12/2025 5:46 PM EDT [facility] Comment: NOTE ADA Guidelines Result HgbA1c Normal : less than 5.7 % Prediabetes : 5.7 % to 6.4 % Diabetes : > 6.4 % Use with caution in patients with abnormal hemoglobin variants as the half-life of red blood cells and in vivo glycation rates are affected. Average glucose 163 mg/dL 5:46 PM EDT [facility] Blood (PLASMA) 02/12/2025 11 :21 AM EDT 02/12/2025 11:22 AM EDT Jose Manuel Burleson LAB BLOOD ORDERABLES Final Re sult [facility] [address] [place] [address], [facility] [address] [place] [address] * (ABNORMAL) Lipid profile (02/12/2025 11:21 AM EDT) Cholesterol 145(L) 150 - 200 mg/dL 02/12/2025 5:32 PM EDT [facility] Triglycerides 189(H) 27 - 150 mg/dL 02/12/2025 5:32 PM EDT [facility] HDL Cholesterol 38(L) >39 mg/dL 5:32 PM EDT [facility] Comment: HDL <40 mg/dL - High Risk HDL > or = 40mg/dL- Desirable HDL >60 mg/dL - Negative Risk VLDL 38(H) 0 - 30 mg/dL 02/12/2025 5:32 PM EDT [facility] LDL (calc) 69 <130 mg/dL 02/12/2025 5:32 PM EDT [facility] Comment: LDL <100 mg/dL - Desirable LDL >160 mg/dL - High Risk Cholesterol:HDL Ratio 3.8 1.0 - 5.0 02/12/2025 5:32 PM EDT [facility] Blood (PLASMA) 02/12/2025 11 :21 AM EDT 02/12/2025 11:22 AM EDT us Jose Manuel Burleson DO LAB BLOOD ORDERABLES Final Re sult [facility] [address] [facility] [address] [facility] [address] [place] [address] * (ABNORMAL) Comprehensive metabolic panel (02/12/2025 11:21 AM EDT) Sodium 138 134 - 146 mmol/L 02/12/2025 5:32 PM EDT [facility] Potassium, Bld 4.0 3.5 - 5.0 mmol/L 02/12/2025 5:32 PM EDT [facility] Chloride 102 98 - 109 mmol/L 02/12/2025 5:32 PM EDT [facility] CO2 24 22 - 32 mmol/L 02/12/2025 5:32 PM EDT [facility] Anion gap 12 5 - 15 mmol/L 02/12/2025 5:32 PM EDT [facility] BUN 12 5 - 23 mg/dL 02/12/2025 5:32 PM T [facility] Creatinine 0.53 0.40 - 1.00 mg/dL 02/12/2025 5:32 PM EDT [facility] Comment:METHOD TRACEABLE TO IDMS STANDARD Glucose 166(H) 65 - 99 mg/dL 02/12/2025 5:32 PM EDT [facility] Calcium 9.1 8.5 - 10.5 mg/dL 02/12/2025 5:32 PM EDT [facility] Total Protein 6.8 6.0 - 8.0 g/dL 02/12/2025 5:32 PM EDT [facility] Albumin 4.5 3.2 - 5.3 g/dL 02/12/2025 5:32 PM EDT [facility] Alkaline Phosphatase 94 39 - 130 U/L 02/12/2025 5:32 PM EDT [facility] AST 21 0 - 41 U/L 02/12/2025 5:32 PM T [facility] ALT 33(H) 0 - 31 U/L 02/12/2025 5:32 PM EDT [facility] Total bilirubin 0.6 0.3 - 1.2 mg/dL 02/12/2025 5:32 PM T [facility] eGFR (CKD-EPI)non-rac e dependent >90 >59 ml/min/1.7 3sq.m 02/12/2025 5:32 PM T [facility] Comment: Reported eGFR is based on the CKD-EPI 2020 equation that does not use a race coefficient. Blood (PLASMA) 02/12/2025 11 :21 AM EDT 02/12/2025 11:22 AM EDT us Jose Manuel Burleson DO LAB BLOOD ORDERABLES Final Re sult [facility] [address] [place] [address] * Mammography screening bilateral with CAD (09/23/2024 11:48 AM EST) Anatomical Region Laterality Modality Breast Bilateral Mammography 09/23/2024 2:17 PM EST Narrative 09/23/2024 2:19 PM EST CORINE BUCKLEY 1970 [id number] EXAM: MAMM SCREENING BILATERAL W CAD, 09/23/2024 11:32 AM CLINICAL INDICATIONS: Screening, Encounter for screening mammogram for malignant neoplasm of breast COMPARISON: Multiple prior mammograms were viewed for comparison dating back to 02/13/2018 TECHNIQUE: Bilateral digital tomosynthesis MLO and CC views of the breasts were obtained, with creation of synthetic 2D views. Computer aided detection was utilized. FINDINGS: The breasts are almost entirely fatty. There are no suspicious masses, calcifications, or areas of architectural distortion. IMPRESSION: No mammographic evidence of malignancy. BI-RADS: BI-RADS 1 - Negative RECOMMENDATION: Routine screening mammogram in 1 year. RISK ASSESSMENT: TC Lifetime risk: 5.9%. The patient's reported personal and family medical history was used calculate their Tyrer-Cuzick lifetime risk of malignancy. Scores less than 20% are not considered high risk per ACR guidelines and patient should continue with the above recommendation. Finalized by Christina Arias MD on 09/23/2024 2:19 PM 1 a MAMM 1 YR FDA Accredited Performing Facility: [facility] [address] [facility] [id number] Procedure Note Christina Arias MD - 09/23/2024 CORINE MIRZA ELZA 1970 [id number] EXAM: MAMM SCREENING BILATERAL W CAD, 09/23/2024 11:32 AM CLINICAL INDICATIONS: Screening, Encounter for screening mammogram formalignant neoplasm of breast COMPARISON: Multiple prior mammograms were viewed for comparison datingback to 02/13/2018 TECHNIQUE: Bilateral digital tomosynthesis MLO and CC views of the breastswere obtained, with creation of synthetic 2D views. Computer aideddetection was utilized. FINDINGS: The breasts are almost entirely fatty. There are no suspicious masses, calcifications, or areas of architecturaldistortion. IMPRESSION: No mammographic evidence of malignancy. BI-RADS: BI-RADS 1 - Negative RECOMMENDATION: Routine screening mammogram in 1 year. RISK ASSESSMENT: TC Lifetime risk: 5.9%. The patient's reported personal and family medical history was usedcalculate their Tyrer-Cuzick lifetime risk of malignancy. Scores less than20% are not considered high risk per ACR guidelines and patient shouldcontinue with the above recommendation. Finalized by Christina Arias MD on 09/23/2024 2:19 PM 1 a MAMM 1 YR FDA Accredited Performing Facility: [facility] [address] [place] [place] [address] Charanjit Martell MD IMG MAMMOGRAPHY ORDERABLES Fin al Result * COLONOSCOPY (01/08/2020) 01/08/2020 Scanning Provider External HEALTH MAINTENANCE Fi nal Result MANUALLY TRANSCRIBED RESULTS from Last 3 Months or Most Recently Relevant to Health Maintenance Insurance ANTHEM Care Teams Paint Spray Inspector Relationship Specialty Start Date End Date Charanjit Martell MD [address] [facility] [place] [address] PCP - General Internal Medicine 05/11/23
--- OUTSIDE RECORDS SUMMARY | 2025-04-26 13:05 | XMS_ITS | Encounter Summary ---
Author Organization [employer] Address [id number] [address] [place] [address] Care Team Providers Care Rotary Shear Cutter Name Role Phone Charanjit Martell MD Primary Care Provider [phone] Encounter Details Date Type Department Care Team (Late st Contact Info) Description 11/20/2022 Telephone [facility] [address] [place] [address] [place] [address] Marlene Gupta CMA Social History Tobacco Use Types Packs/Day [...] any clubs o r organizations such as roman catholic groups, unions, fraternal or athletic groups, or [...] Answer Date Recorded Total Score 0 05/02/2022 [facility] of Occupat ional Health - Occupational Stress [...] Clinical Support [facility] [address] [place] [address] [place] [address] Jose Manuel Burleson, DO [address] [facility], [facility] [address] documented as of this encounter [...] documented as of this encounter Care Teams Rotary Shear Cutter Relationship Specialty Start Date End Date Charanjit Martell MD [address] [facility] [place] [address] PCP - General Internal Medicine 05/11/23 documented as of this encounter
--- OUTSIDE RECORDS SUMMARY | 2025-04-26 13:05 | XMS_ITS | Encounter Summary ---
Author Organization [facility] tem Address [id number] [address] [place] [address] Care Team Providers Care Gas Booster Engineer Name Role Phone Charanjit Martell MD Primary Care Provider [phone] Reason for Visit * Reason Comments Med Refill Encounter Details Date Type Department Care Team (Late st Contact Info) Description 05/17/2020 Refill [facility] [address] [place] [address] [place] [address] Xochilt Benedict, SYSTEM AUDITOR-LIQUID FLOOR AND WALL APPLIER [address] [facility] [address] [place] [address] Type 2 diabetes mellitus without complication, without long-term current use of insulin ([facility]); Essential hypertension; Depression, unspecified depression type Social [...] have Coronavirus / COVID-19? No / Unsure 04/26/2020 1:01 PM EDT documented as of this encounter Plan of Treatment Upcoming Encounters Date Type Department Care Team (Late st Contact Info) Description 08/23/2025 11:30 AM EDT Clinical Support [facility] [address] [place] [address] [place] [address] Jose Manuel Burleson, DO 605 [facility], [address], [facility] [place] [address] documented as of this encounter Visit Diagnoses Diagnosis Type 2 diabetes mellitus without complication, without long-term current use of insulin ([facility]) Essential hypertension Unspecified essential hypertension Depression, unspecified depression type documented in this encounter Additional Health Concerns Assessment Noted Time PHQ-9 Depression Total Score: 1 03/30/20 19 12:00 PM EDT documented as of this encounter Care Teams Gas Booster Engineer Relationship Specialty Start Date End Date Charanjit Martell MD 605 [facility] [place] [address] PCP - General Internal Medicine 05/11/23 documented as of this encounter
--- OUTSIDE RECORDS SUMMARY | 2025-04-26 13:05 | XMS_ITS | Encounter Summary ---
Author Organization [facility] Address [facility] [id number] [address] [place] [address] Care Team Providers Care Certified Genetic Counselor Name Role Phone Charanjit Martell MD Primary Care Provider [phone] Reason for Visit * Reason Comments Med Refill Encounter Details Date Type Department Care Team (Late st Contact Info) Description 09/26/2019 Refill [facility] [address] [place] [address] [place] [address] Xochilt Benedict, EVARISTO-HERMES [address] [facility] [address] [place] [address] Essential hypertension; Depression, unspecified depression type; Type 2 diabetes mellitus without complication, without long-term current use of insulin ([facility]) Social History Tobacco Use Types Packs/Day Years Used Date Smoking Tobacco: Former Smokeless Tobacco: Never Alcohol Use Standard Drinks/Week Comments Yes 0 (1 standard drink = 0.6 oz pur e alcohol) PHQ-2 Answer Date Recorded PHQ-2 Score 1 03/30/2019 Childcare Answer Date Recorded Childcare Unknown 04/20/2019 Employment Answer Date Recorded Employment Unknown 04/20/2019 Comments Unknown Sex and Gender Information Value Date Recorded Sex Assigned at Not on file Legal Sex Female 12:18 PM EDT Gender Identity Not on file Sexual Orientation Not on file documented as of this encounter Miscellaneous Notes * Telephone Encounter - ASHLIE Perez - 09/26/2019 12:13 AM EST Patient needs to schedule an appointment documented in this encounter Plan of Treatment Upcoming Encounters Date Type Department Care Team (Late st Contact Info) Description 08/23/2025 11:30 AM EDT Clinical Support [facility] [address] [place] [address] [place] [address] Jose Manuel Burleson, 605 [facility], [address], [place] [address] documented as of this encounter Visit Diagnoses Diagnosis Essential hypertension Unspecified essential hypertension Depression, unspecified depression type Type 2 diabetes mellitus without complication, without long-term current use of insulin ([facility]) documented in this encounter Additional Health Concerns Assessment Noted Time PHQ-9 Depression Total Score: 1 03/30/20 19 12:00 PM EDT documented as of this encounter Care Teams Certified Genetic Counselor Relationship Specialty Start Date End Date Charanjit Martell MD 605 [facility] [place] [address] PCP - General Internal Medicine 05/11/23 documented as of this encounter
--- OUTSIDE RECORDS SUMMARY | 2025-04-26 13:05 | XMS_ITS | Encounter Summary ---
Author Organization [employer] s tem Address [id number] [address] [place] [address] Care Team Providers Care Metal Baler Name Role Phone Charanjit Martell MD Primary Care Provider [phone] Reason for Visit * Reason Comments Med Refill Encounter Details Date Type Department Care Team (Late st Contact Info) Description 09/27/2019 Refill [facility] [address] [place] [address] Xochilt Benedict, SHOW OPERATIONS SUPERVISOR-SKEIN YARN DRIER [address] [address] Depression, unspecified depression type Social History Tobacco [...] Encounters Date Type Department Care Team (Late Contact Info) Description 08/23/2025 11:30 AM EDT Clinical Support [facility] [address] [place] [address] [place] [address] Jsoe Manuel Burleson, DO 605 [facility], [address], [facility] [place] [address] documented as of this encounter Visit Diagnoses Diagnosis Depression, unspecified depression type documented in this encounter Additional Health Concerns Assessment Noted Time PHQ-9 Depression Total Score: 1 03/30/20 19 12:00 PM EDT documented as of this encounter Care Teams Metal Baler Relationship Specialty Start Date End Date Charanjit Martell MD 605 [facility], [place] [address] PCP - General Internal Medicine 05/11/23 documented as of this encounter
--- OUTSIDE RECORDS SUMMARY | 2025-04-26 13:05 | XMS_ITS | Encounter Summary ---
Author Organization [facility] Address [facility] [id number] [address] [place] [address] Care Team Providers Care Customer Project Manager Name Role Phone Charanjit Martell MD Primary Care Provider [phone] Reason for Visit * Reason Comments Med Refill Encounter Details Date Type Department Care Team (Late st Contact Info) Description 10/16/2021 Refill [facility] [address] [place] [address] [place] [address] Xochilt Benedict, FACIAL OPERATOR-[place] [id number] [id number] Depression, unspecified depression type Social History Tobacco [...] How often do you attend chur or judaism services? 1 to 4 times per year 04/21/2021 Do you belong to any clubs o r organizations such as islam groups, unions, fraternal or athletic groups, or [...] Answer Date Recorded Total Score 0 04/21/2021 [facility] - [...] Support [facility] [address] [place] [address] [address] [place] [address] Jose Manuel Burleson, DO [address], [address], [place] [address] documented as of this encounter [...] documented as of this encounter Care Teams Customer Project Manager Relationship Specialty Start Date End Date Charanjit Martell MD [address], [place], [place] [id number] PCP - General Internal Medicine 05/11/23 documented as of this encounter
--- OUTSIDE RECORDS SUMMARY | 2025-04-26 13:05 | XMS_ITS | Encounter Summary ---
Author Organization [facility] Address [facility] [place]-[id number] [address] [place] [address] Care Team Providers Care Pet Sitting Name Role Phone Charanjit Martell MD Primary Care Provider [phone] Encounter Details Date Type Department Care Team (Late st Contact Info) Description 03/18/2023 Orders Only [facility] [address] [facility] [place] [address] [place] [address] External, Scanning Provider Social History Tobacco Use Types Packs/Day Years [...] often do you attend chur ch or mandaen services? 1 to 4 times per year 11/27/2022 Do you belong to any clubs o r organizations such as yarsani groups, unions, fraternal or athletic groups, or [...] Answer Date Recorded Total Score 0 11/27/2022 [facility] - Occupational [...] Recorded Do you need help finding a [facility] career center and/or a training program? [...] Support [facility] [address] [facility] [place] [address] Jose Manuel Burleson, [address] [place], [address] [place] [address] documented as of this encounter [...] documented as of this encounter Care Teams Pet Sitting Relationship Specialty Start Date End Date Charanjit Martell MD [address] [facility] [place], [place] [address] PCP - General Internal Medicine 05/11/23 documented as of this encounter
--- OUTSIDE RECORDS SUMMARY | 2025-04-26 13:05 | XMS_ITS | Clinical Summary ---
Author Organization [facility] Address [address] [place] [address] Care Team Providers Care Pre Owned Sales Manager Name Role Phone Xochilt Benedict CNP Primary Care Provider [phone] Allergies No known active allergies Medications metFORMIN ER (GLUMETZA) 1,000 mg 24 hr tablet Take 1,000 mg by mouth daily with breakfast. Active furosemide (LASIX) 20 mg tablet Take 20 mg by mouth twice daily. Active escitalopram oxalate (LEXAPRO) 20 mg tablet Take 20 mg by mouth once daily. Active Benazepril-Hydr ochlorothiazide 20-25 mg per tablet Take 1 tablet by mouth once daily. Active buPROPion XL (WELLBUTRIN XL) 300 mg 24 hr tablet Take 300 mg by mouth once daily. Active orphenadrine citrate (NORFLEX ORAL) Take by mouth as needed. Active Iron Polysacch Bvghzpa-M32-YK (POLY-IRON 150 FORTE) 150-25-1 mg-mcg-mg cap TAKE 1 CAPSULE BY MOUTH TWICE DAILY FOR 30 DAYS 11/19/2019 Active Active Problems Problem Noted Date Diagnosed Date Iron deficiency anemia due to chronic blood loss 11/27/2019 Immunizations Immunization Administration Dates Next Due influenza (IIV4) vaccine, ag e 6 mo - 64 yr, quadrivalent, PF (AFLURIA, FLUARIX, FLULAVAL, FLUZONE) 11/18/2019,09/22/2018,08/11/2018 influenza (IIV4) vaccine, qu adrivalent (AFLURIA, FLULAVAL, FLUZONE) 11/18/2019,09/22/2018 tetanus diphtheria pertussis (Tdap) vaccine, age 7+ yr (ADACEL, BOOSTRIX) 12/27/2018 Family History Medical History Relation Comments Diabetes Father Hypertension Father Stroke Father Diabetes Mother Hypertension Mother Relation Status Comments Father Mother Social History Tobacco Use Types Packs/Day Years Used Date Smoking Tobacco: Every Day Cigarettes Smokeless Tobacco: Never Alcohol Use Standard Drinks/Week Comments Not Currently 0 (1 standard drink = 0.6 oz pur e alcohol) social Area Deprivation Index Answer Date Michael rded National Score (1-100), lower number is lower ri sk Not on file 10/18/2020 State Score (1-10), lower number is lower risk N ot on file 10/18/2020 Data from: https://www.neighborhoodatlas.medicine.[facility]/. Last address used for calculation Not on file 10/18/2020 Comments No Sex and Gender Information Value Date Recorded Sex Assigned at Not on file Legal Sex Female 12:04 PM EST Gender Identity Not on file Sexual Orientation Not on file Last Filed Vital Signs Vital Sign Reading Time Taken Comments Blood Pressure 125/63 12/04/2019 10:25 AM EST Pulse 71 12/04/2019 10:25 AM EST Temperature 36.9 C (98.4 F) 12/04/2019 10:25 AM EST Respiratory Rate 16 12/04/2019 10:2 5 AM EST Oxygen Saturation 98% 12/04/2019 10: 25 AM EST Inhaled Oxygen Concentration - - Weight 75.4 kg (166 lb 3.2 oz) 11/27/2019 1:10 PM EST Height 166 cm (5' 5.35 ) 11/27/2019 1:1 0 PM EST verified by 2 care givers Body Mass Index 27.36 11/27/2019 1:10 PM EST Plan of Treatment Health Maintenance Due Date Last Done Comments Anxiety Screening 1987 Depression Screening 1987 HIV Screening 1987 Hepatitis C Screening 1987 Hepatitis B Vaccine (1 of 3 - 19+ 3-dose series) 1988 Cervical Cancer Screening [address] M[address] Colonography 2014 Cologuard (FIT-DNA) 2014 Colonoscopy 2014 Colorectal Cancer Screening 2014 Fecal Occult Blood 2014 Sigmoidoscopy 2014 Pneumococcal Vaccine: 50+ (1 of 1 - PCV) 2019 Shingrix Vaccine (1 of 2) 2019 Diabetes Screening 11/03/2022 11/03/2019, 02/13/2018 Lipid Screening 02/13/2023 02/13/2018 Covid-19 Vaccine (1 - 2023-2 5 season) 2024 Influenza Vaccine (Season Ended) 2025 11/18/2019, 11/18/2019, 09/22/2018, Additional history exists DTaP,Tdap,Td Vaccine (2 - Td or Tdap) 12/27/2028 12/27/2018 Insurance [employer] PPO Care Teams Pre Owned Sales Manager Relationship Specialty Start Date End Date Xochilt Benedict CNP PCP - General Neurology 11/27/19
--- OUTSIDE RECORDS SUMMARY | 2025-04-26 13:05 | XMS_ITS | Encounter Summary ---
Author Organization [employer] Sys tem Address [id number] [address] [place] [address] Care Team Providers Care Lifestyle Director Name Role Phone Charanjit Martell MD Primary Care Provider [phone] Reason for Visit * Reason Comments Med Refill Encounter Details Date Type Department Care Team (Late st Contact Info) Description 09/02/2017 Refill [facility] [address] [place] [address] [place] [address] Helen López, LOSS PREVENTION COORDINATOR-AIRCRAFT MECHANIC ELECTRICAL AND RADIO [address] [place] [id number] Social History Tobacco Use Types Packs/Day Years [...] Clinical Support [facility] [address] [place] [address] [place] [address] Jose Manuel Burleson, DO [address] [place] [address], [address], [place] [address] documented as of this encounter Visit Diagnoses Not on filedocumented in this encounter Care Teams Lifestyle Director Relationship Specialty Start Date End Date Charanjit Martell MD 605 [facility] [place] [address] PCP - General Internal Medicine 05/11/23 documented as of this encounter
--- OUTSIDE RECORDS SUMMARY | 2025-04-26 13:05 | XMS_ITS | Encounter Summary ---
Author Organization [email or web address] tem Address [facility] [id number] [address] [place] [address] Care Team Providers Care Barge Loader Name Role Phone Charanjit Martell MD Primary Care Provider Encounter Details Date Type Department Care Team (Late st Contact Info) Description 03/07/2023 Orders Only [facility] [address] [place] [address] [place] [address] Aleksandra Sanchez CMA Mixed hyperlipidemia; Type 2 diabetes mellitus with hyperosmolarity without coma, without long-term current use of insulin ([facility]); Type 2 diabetes mellitus without complication, without long-term current use of insulin ([facility]); Essential hypertension Social History Tobacco Use Types [...] 11/27/2022 How often do you attend chur or jew services? 1 to 4 times per year 11/27/2022 Do you belong to any clubs o r organizations such as zoroastrian groups, unions, fraternal or athletic groups, or [...] Answer Date Recorded Total Score 0 11/27/2022 [facility] - Occupational [...] Recorded Do you need help finding a [facility] career center and/or a training [...] EDT Clinical Support [facility] [address] [place] [address] [place] [address] Jose Manuel Burleson, [address], [facility] [address], [address] [place] [id number] documented as of this encounter Goals Goal Patient Goal Type Associated Problems Recent Progress Patient-Stated? Author mar[facility] home. General Yes Maribel Griffin LISW Note: Evaluation of progress towards goal: patient plans to discharge home w/family and home care services. documented as of this encounter Procedures Procedure Name Priority Date/Time Associated Diagnosis Comments LIPID PROFILE Routine 03/02/2023 Mixed hyperlipidemia COMPREHENSIVE METABOLIC PANEL Routine 03/02/2023 Type 2 diabetes mellitus with hyperosmolarity without coma, without long-term current use of insulin ([facility]) Type 2 diabetes mellitus without complication, without long-term current use of insulin ([facility]) Essential hypertension documented in this encounter Results * Comprehensive metabolic panel (03/02/2023) External Albumin 4.5 [facility] External Alt Sgpt 28 [facility] External Anion Gap 12.5 [facility] External Ast 17 [facility] External Blood Urea Nitrogen Bun 21 [employer] External Calcium Ca 9.1 [employer] External Chloride 102 [employer] External Co2 / Carbon Dioxide 25.8 [employer] External Creatinine 0.63 [employer] External Gfr Non Amer 60 [facility] External Alkaline Phosphatase 76 [facility] External Glucose Fasting Or Random (Fbs) 157 [employer] External Potassium K 4.3 [facility] External Sodium Na 136 [facility] Total Bilirubin 0.8 [facility] External Total Protein 6.8 [facility] Blood 03/02/2023 [employer] LAB BLOOD ORDERABLES Fin al Result Performing Organization Address [facility] Co de Phone Number SUNSREEKANTH * Lipid profile (03/02/2023) External Cholesterol 162 [facility]QUEST External Cholesterol:Hdl 4.2 [employer] External Hdl Cholesterol 39 [facility] External Ldl (Calc) 100 [facility] External Triglycerides 116 [facility] External Very Low Lipoprotein 23 [facility] Blood 03/02/2023 [employer] LAB BLOOD ORDERABLES Fin al Result Performing Organization Address [facility] Co de Phone Number JUWAN documented in this encounter Visit Diagnoses Diagnosis Mixed hyperlipidemia Type 2 diabetes mellitus with hyperosmolarity without coma, without long-term current use of insulin ([facility]) Type 2 diabetes mellitus without complication, without long-term current use of insulin ([facility]) Essential hypertension Unspecified essential hypertension documented in this encounter Additional Health Concerns Assessment Noted Time PHQ-9 Depression Total Score: 0 11/27/19 23 11:53 AM EST documented as of this encounter Care Teams Barge Loader Relationship Specialty Start Date End Date Charanjit Martell MD [address] [place] [address] PCP - General Internal Medicine 05/11/23 documented as of this encounter
--- OUTSIDE RECORDS SUMMARY | 2025-04-26 13:05 | XMS_ITS | Encounter Summary ---
Author Organization [facility] tem Address [id number] [address] [place] [address] Care Team Providers Care Bleach Analyst Name Role Phone Charanjit Martell MD Primary Care Provider [phone] Reason for Visit * Reason Onset Date Comments Med Refill 08/19/2020 Encounter Details Date Type Department Care Team (Late st Contact Info) Description 08/19/2020 [facility] [address] [place] [address] [place] [address] Xochilt Benedict, BEAMING MACHINE OPERATOR-PIPING MANAGER [address] [facility] [address] [place] [phone] Depression, unspecified depression type Social History Tobacco [...] Support [facility] [address] [place] [address] Jose Manuel Burleson, 605 [facility], [address], [facility] [place], [place] [id number] documented as of this encounter Visit Diagnoses Diagnosis Depression, unspecified depression type documented in this encounter Additional Health Concerns Assessment Noted Time PHQ-9 Depression Total Score: 1 03/30/20 19 12:00 PM EDT documented as of this encounter Care Teams Bleach Analyst Relationship Specialty Start Date End Date Charanjit Martell MD 605 [facility], [place] [address] PCP - General Internal Medicine 05/11/23 documented as of this encounter
--- OUTSIDE RECORDS SUMMARY | 2025-04-26 13:05 | XMS_ITS | Encounter Summary ---
Author Organization [facility] tem Address [id number] [address] [place] [address] Care Team Providers Care Edge Bander Hand Name Role Phone Charanjit Martell MD Primary Care Provider [phone] Encounter Details Date Type Department Care Team (Late st Contact Info) Description 10/25/2020 Orders Only [facility] [address] [facility] [place] [phone] Natali Watts, RN Social History Tobacco Use Types Packs/Day Years [...] have Coronavirus / COVID-19? No / Unsure 10/25/2020 5:42 AM EST documented as of this encounter Mental Status * Question Answer Entry Date Author Overall Cognitive Status WFL 10/25/2020 11:33 AM EST Luisana Munguia OTR/L documented in this encounter Plan of Treatment Upcoming Encounters Date Type Department Care Team (Late st Contact Info) Description 08/23/2025 11:30 AM EDT Clinical Support [facility] [address] [place] [address] Jose Manuel Burleson, DO [address], [address] [place] [address] documented as of this encounter [...] documented as of this encounter Care Teams Edge Bander Hand Relationship Specialty Start Date End Date Charanjit Martell MD [address], [facility] [place] [address] PCP - General Internal Medicine 05/11/23 documented as of this encounter
--- OUTSIDE RECORDS SUMMARY | 2025-04-26 13:05 | XMS_ITS | Encounter Summary ---
Author Organization [facility] Texert Sys tem Address [id number] [address] [place] [address] Care Team Providers Care Acquisitions Logistics Analyst Name Role Phone Charanjit Martell MD Primary Care Provider [phone] Encounter Details Date Type Department Care Team (Late st Contact Info) Description 04/21/2024 Orders Only [facility] [address] [place] [id number] External, Scanning Provider Social History Tobacco Use [...] often do you attend chur ch or religion services? 1 to 4 times per year 11/27/2022 Do you belong to any clubs o r organizations such as methodist groups, unions, fraternal or athletic groups, or [...] care, and heating? Not hard at all 01/12/2024 PHQ-2 Answer Date Recorded Total Score 0 11/27/2022 [facility] - Occupational Stress [...] medical appointments or from getting medications? No 01/2024 In the past 12 months, has l ack of transportation kept you from meetings, work, or from getting things needed for daily living? No 01/12/2024 Housing Instability Answer Date Recorde d Are you worried or concerned that in the next two months you may not have stable housing that you own, rent or stay in as a part of a household? No 01/12/2024 Childcare Answer Date Recorded Do problems getting child ca re make it difficult for you to work or study? No 11/27/2022 Employment Answer Date Recorded Do you need help finding a [facility] career center and/or a training program? No 11/27/2022 Hunger Screening Answer Date Recorded Within the past 12 months we worried whether our food would run out before we got money to buy more. Never True 01/12/2024 Within the past 12 months th e food we bought just didn't last and we didn't have money to get more. Never True 01/12/2024 Purpose - Life Answer Date Recorded I [...] EDT Clinical Support [facility] [address] [place] [address] [place] [id number] Jose Manuel Burleson, [address], [facility] [address], [place] [address] documented as of this encounter Goals Goal Patient Goal Type Associated Problems Recent Progress Patient-Stated? Author [facility] home. General Yes Maribel Griffin LISW Note: Evaluation of progress towards goal: patient plans to discharge home w/family and home care services. documented as of this encounter Procedures Procedure Name Priority Date/Time Associated Diagnosis Comments MULTIPLE LABS Routine 03/31/2024 8:28 AM EDT documented in this encounter Results * Multiple labs (03/31/2024 8:28 AM EDT) us Scanning Provider External [facility] Final Result MANUALLY TRANSCRIBED RESULTS documented in this encounter Visit Diagnoses Not on filedocumented in this encounter Additional Health Concerns Assessment Noted Time PHQ-9 Depression Total Score: 0 11/27/19 23 11:53 AM EST documented as of this encounter Care Teams Acquisitions Logistics Analyst Relationship Specialty Start Date End Date Charanjit Martell MD [address] [place] [address] PCP - General Internal Medicine 05/11/23 documented as of this encounter
--- OUTSIDE RECORDS SUMMARY | 2025-04-26 13:05 | XMS_ITS | Encounter Summary ---
[facility] [id number] [address] [place] [address] Care Team Providers Care Well Point Pumping Supervisor Name Role Phone Charanjit Martell MD Primary Care Provider [phone] Reason for Visit * Reason Comments Med Refill Encounter Details Date Type Department Care Team (Late st Contact Info) Description 12/13/2020 Refill [facility] [address] [place] [address] [place] [address] Xochilt Benedict, EVARISTO-CHARACTER IMPERSONATOR [address] [place] [address] [place], [place] [id number] Type 2 diabetes mellitus without complication, without long-term current use of insulin ([facility]); Essential hypertension; Depression, unspecified depression type Social [...] [facility] [address] [facility] [address] Jose Manuel Burleson, DO [address], [address] [place] [address] documented as of this encounter Goals Goal Patient Goal Type Associated Problems Recent Progress Patient-Stated? Author [facility] home. General Yes Maribel Griffin LISW Note: Evaluation of progress towards goal: patient plans to discharge home w/family and home care services. documented as of this encounter Visit Diagnoses Diagnosis Type 2 diabetes mellitus without complication, without long-term current use of insulin ([facility]) Essential hypertension Unspecified essential hypertension Depression, unspecified depression type documented in this encounter Additional Health Concerns Assessment Noted Time PHQ-9 Depression Total Score: 0 10/25/20 20 6:04 AM EST documented as of this encounter Care Teams Well Point Pumping Supervisor Relationship Specialty Start Date End Date Charanjit Martell MD [address], [place], [place] [id number] PCP - General Internal Medicine 05/11/23 documented as of this encounter
[2025-04-28 08:12] LABS: Age Gdln ACOG Testing Note (.); HPV Aptima Negative (Negative); IGP, Aptima HPV, rfx 16/18,45 Note (.)
== END 2025-04-26 13:02 | disposition home or self-care (01) ==
LOC: LAB 13:01
PROVIDERS: Visit Provider Obstetrics & Gynecology
DX: Z01.419 Encounter for gynecological examination (general) (routine) without abnormal findings (principal)
CPT/HCPCS: 87624; 88175